=== PATIENT | male | born 1960 | race Caucasian/White ===

== ENCOUNTER 2020-11-06 16:16 | Inpatient (IN) | payer BC, OTHER ==
[2020-11-06] MEDS ORDERED: SODIUM CHLORIDE 0.9% 500 ML 500 ML IV STA (16:47)
[2020-11-06 17:24] LABS: Basophils % (A) 1 %; Eosinophils % (A) 0 %; HCT 43.5 % (39.0-53.0); Lymphocytes # (A) 0.3 k/uL (1.0-4.8); Lymphocytes % (A) 8 %; MCH 28.3 pg (25.0-35.0); MCHC 34.6 g/dL (31.0-37.0); Mean Platelet Volume 8.3; Monocytes # (A) 0.3 k/uL (0-1.0); Monocytes % (A) 6 %; Neutrophils # (A) 3.7 k/uL (1.3-7.7); Neutrophils % (A) 84 %; Platelet Count 155 k/uL (150-450); RDW 14.8 % (11.5-15.5); WBC 4.4 k/uL (3.8-10.6)
[2020-11-06 17:33] LABS: ALT 55 U/L (4-49); AST 69 U/L (17-59); African American GFR (CKD) >90 (>60 ml/min/1.73 sqM); Albumin 3.5 g/dL (3.5-5.0); Alkaline Phosphatase 66 U/L (38-126); Anion Gap 9 mmol/L; Blood Urea Nitrogen 15 mg/dL (9-20); Calcium 8.2 mg/dL (8.4-10.2); Carbon Dioxide 23 mmol/L (22-30); Chloride 101 mmol/L (98-107); Glucose 140 mg/dL (74-99); Non-African American GFR(CKD) >90 (>60 ml/min/1.73 sqM); Potassium 4.5 mmol/L (3.5-5.1); Sodium 133 mmol/L (137-145); Total Bilirubin 0.5 mg/dL (0.2-1.3); Total Protein 6.4 g/dL (6.3-8.2)
--- NOTE | 2020-11-06 17:58 | XR ---
EXAMINATION TYPE: XR chest 1V portable DATE OF EXAM: 11/06/2020 COMPARISON: NONE HISTORY: Vertebra. Cough TECHNIQUE: Single view FINDINGS: Heart is normal. There is some coarsening of interstitial markings in the lower lung holt . There are chest leads. IMPRESSION: There are some fibrotic changes and subsegmental atelectasis at the lung bases. No heart failure seen. Normal heart.
[2020-11-06] MEDS ORDERED: NALOXONE 0.4 MG/ML 1 ML VIAL IV PRN (17:59)
[2020-11-06] MEDS ORDERED: ONDANSETRON 4 MG/2 ML VIAL IVP PRN (17:59)
[2020-11-06] MEDS ORDERED: IBUPROFEN 400 MG TAB PO PRN (17:59)
[2020-11-06] MEDS ORDERED: ACETAMINOPHEN TAB 325 MG TAB PO PRN (17:59)
[2020-11-06 18:33] LABS: C Reactive Protein 6.8 mg/dL (<1.0)
[2020-11-06 18:34] LABS: Prothrombin Time 10.4 sec (9.0-12.0)
[2020-11-06] MEDS: DEXAMETHASONE SOD PHOSPHATE 10 MG/ML 1 ML VIAL IV SCH (20:04)
[2020-11-06] MEDS: PANTOPRAZOLE 40 MG/10 ML VIAL IVP SCH (20:05)
[2020-11-06] MEDS: ZINC SULFATE 220 MG CAP PO SCH (20:06)
[2020-11-06] MEDS: ENOXAPARIN 40 MG/0.4 ML SYRINGE SQ SCH (20:06)
--- NOTE | 2020-11-06 20:09 | CT ---
EXAMINATION TYPE: CT chest angio for PE DATE OF EXAM: 11/06/2020 COMPARISON: None HISTORY: +covid, cough, SOB CT DLP: 485.5 mGycm Automated exposure control for dose reduction was used. CONTRAST: Performed with IV Contrast, patient injected with 100 mL of Isovue 370. Images obtained from the thoracic inlet to the diaphragm with IV contrast. There are 3-D post process ed images. There is no mediastinal adenopathy. Heart size is normal. There is no pericardial effusion. There are no hilar masses. Thoracic aorta is intact. There is no sign of aneurysm or dissection. There is normal contrast opacification of the pulmonary arteries. There are no filling defects. There are patchy bilateral peripheral pulmonary interstitial and airspace infiltrates. Bony thorax is intact. There is minor spurring in the thoracic spine. IMPRESSION: No evidence of pulmonary embolism. Extensive bilateral pulmonary infiltrates consistent with pneumoni a or RDS.
--- NOTE | 2020-11-06 20:13 | HP ---
HISTORY AND PHYSICAL CHIEF COMPLAINT: Shortness of breath, cough and fever. HISTORY OF PRESENT ILLNESS: This 60-year-old gentleman with a past medical history of DVT, history of pulmonary embolism, history of back surgery being followed by Dr. Moreno in the outpatient setting is complaining of fever, cough and some sputum and shortness of breath for the last 10 days which was progressively getting worse. Patient went to urgent care center. Patient referred to [facility] for further evaluation and treatment. Patient was apparently found to be hypoxic at the urgent care center. Currently the patient is saturating 95% on 4 L. Chest x-ray showed bilateral interstitial shadows suggestive of COVID-19. COVID-19 test was also positive. The patient admitted for further evaluation and treatment. Other labs are being processed at this time. Of note, the patient's family from [place] visited, the brother and his about a couple weeks ago and 4 or 5 days prior to the symptoms onset the patient apparently visited them and those family members went back to [place] and were tested positive, admitted in the hospital. Another brother who visited them also is admitted in [facility] according to him. Apparently, patient already had a very brief contact, only about one hour visiting them, who was living with some other family members. There is no history any headache, loss of consciousness or seizures at this time. PAST MEDICAL HISTORY: History of DVT, history of pulmonary embolism, history of kidney stones, history of adenoidectomy, back surgery. The patient also had history of hip surgery and the patient apparently had multiple complications and is trying for disability. 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 MEDICATIONS: Home medications are unknown. ALLERGIES: None. FAMILY HISTORY: No history of heart attacks or strokes. SOCIAL HISTORY: No history of smoking. No history of alcohol intake. REVIEW OF SYSTEMS: ENT No history of diminished hearing or vision. CARDIOVASCULAR No angina or palpitations. RESPIRATORY As mentioned earlier. GI No nausea, vomiting, or diarrhea. No dysuria or hematuria. NERVOUS No numbness or weakness. ALLERGY/IMMUNOLOGY No asthma or hayfever. MUSCULOSKELETAL As mentioned earlier. HEMATOLOGY/ONCOLOGY Negative. ENDOCRINE No history of diabetes or hypothyroidism. CONSTITUTIONAL As mentioned earlier. DERMATOLOGY Negative. RHEUMATOLOGY Negative, PSYCHIATRIC: As mentioned earlier. PHYSICAL EXAMINATION: Alert and oriented x3. Pulse 105, blood pressure 166/87, respiration 20, temperature 99.8, pulse ox 94% on 4 L. HEENT: Conjunctivae normal. Oral mucosa moist. NECK: No jugular venous distention. No lymph node enlargement. CARDIOVASCULAR: S1, S2, muffled. No S3, no S4, RESPIRATORY: Diminished breath sounds at the bases. Diffuse scattered rhonchi. ABDOMEN: Soft, nontender. LEGS: No edema, no swelling. NERVOUS SYSTEM: Higher functions mentioned earlier. Moves all four limbs. No focal motor or sensory deficits. LYMPHATICS: No lymph node in neck or axilla. SKIN: No rash. JOINTS: No active deforming arthropathy. LABS: WBC 4.4, lymphocytes 0.3, sodium 133, glucose 140, calcium 8.2, AST 69 and ALT is 55. ASSESSMENT: 1. Acute COVID-19 bilateral pneumonia with acute hypoxic respiratory failure. 2. Lymphopenia. 3. Hyponatremia. 4. Elevated random glucose. 5. Elevated AST ALT, possibly secondary to COVID-19. 6. History of hip surgery and as well as complications. 7. DVT history. 8. History of pulmonary embolism. 9. History of kidney stones. 10.History of adenoidectomy. 11.History of back surgery. 12.History of DJD. RECOMMENDATIONS AND DISCUSSION: In this 60-year-old gentleman who presented with multiple complex medical issues, we will monitor the patient closely, continue the current management and symptomatic treatment. Otherwise, we will initiate steroids, bronchodilators, zinc, pulmonary consultation, infectious disease evaluation. The patient might be a candidate for Remdesivir at this time. Otherwise, the patient might be out of the window for monoclonal antibodies currently. Prognosis guarded because of multiple complex medical issues. Further recommendations to follow. Please note, the patient the patient has not taken the COVID vaccine yet. MMODL / IJN: [id number] /
[2020-11-06] MEDS: ALBUTEROL HFA INHALER INHALATION SCH ×2 (20:18)
--- NOTE | 2020-11-06 23:01 | ED ---
General Adult HPI - General Chief complaint: Shortness of Breath Stated complaint: Covid+, SOB Time Seen by Provider: 11/06/20 16:34 Source: patient, EMS, RN notes reviewed, old records reviewed Mode of arrival: EMS Limitations: no limitations - History of Present Illness Initial comments: Patient is a 60-year-old male with past medical history that is remarkable for prior DVT and PE. Presents emergency Department complaining of a 10 day history of worsening shortness of breath. Patient has been having upper respiratory symptoms for the last 10 days. He is also been complaining of generalized joint pain. He states that the upper respiratory symptoms including a productive cough of mild mucous, as well as dyspnea has worsened over the last 1-2 days. He presented to urgent care today tomorrow where he was found to be hypoxic. They did not perform a COVID-19 swab, but stated that he likely has COVID based on symptoms. He was transferred here for further care. Patient has no confirmed case of COVID-19. He denies any nausea, vomiting, abdominal pain, lightheadedness, headaches. Denies any lower extremity swelling. He denies any smoking history. Denies any hemoptysis. He states this all started with this current respiratory infection. He does endorse subjective fevers and chills as well. Patient does have recent contact with COVID-19 positive individuals. - Related Data Home Medications Medication Instructions Recorded Confirmed Benzonatate [Tessalon Perles] 100 - 200 mg PO TID PRN 11/06/20 11/06/20 Cetirizine HCl [Zyrtec] 10 mg PO HS 11/06/20 11/06/20 Cyclobenzaprine [Flexeril] 10 mg PO HS PRN 11/06/20 11/06/20 Fluticasone Nasal Easley [Flonase 2 spr EA NOSTRIL DAILY 11/06/20 11/06/20 Nasal Easley] Gabapentin [Neurontin] 100 mg PO BID PRN 11/06/20 11/06/20 Meloxicam [Mobic] 7.5 mg PO DAILY PRN 11/06/20 11/06/20 predniSONE See Taper PO DAILY 11/06/20 11/06/20 Allergies Allergy/AdvReac Type Severity Reaction Status Date / Time No Known Allergies Allergy Verified 11/06/20 18:08 Review of Systems ROS Statement: Those systems with pertinent positive or pertinent negative responses have been documented in the HPI. Review of Systems: CONST: Denies fever EYES: Denies blurry vision ENT: Endorses nasal congestion C/V: Denies Chest pain RESP: Endorses shortness of breath GI: Denies abdominal pain : Denies dysuria SKIN: Denies rash. MSK: Denies joint pain. NEURO: Denies headache ROS Other: All systems not noted in ROS Statement are negative. Past Medical History Past Medical History: Deep Vein Thrombosis (DVT), Pulmonary Embolus (PE) Additional Past Medical History / Comment(s): hx of kidney stones. History of Any Multi-Drug Resistant Organisms: None Reported Past Surgical History: Adenoidectomy, Back Surgery, Joint Replacement Additional Past Surgical History / Comment(s): hip replacement Past Psychological History: No Psychological Hx Reported Smoking Status: Never smoker Past Alcohol Use History: None Reported Past Drug Use History: None Reported General Exam - General Exam Comments Initial Comments: General: The mild respiratory distress currently on 4 L nasal cannula. HEAD: Normal with no signs of head trauma. EYES: PERRLA, EOMI, conjunctiva normal, no discharge. ENT: Hearing grossly intact, normal oropharynx. RESPIRATORY: Clear breath sounds bilaterally. No wheezes, rales, or rhonchi. Patient is hypoxic. He is mildly to. C/V: Is mildly tachycardic with a regular rhythm. S1 and S2 auscultated. No peripheral edema. Peripheral pulses are 2+ and intact throughout. ABD: Abd is soft, nontender, nondistended EXT: Normal range of motion, no obvious deformity SKIN: No rashes or lesions observed on exposed skin. NEURO: Alert and oriented 4. Limitations: no limitations Course Vital Signs 11/06/20 11/06/20 11/06/20 16:18 16:27 16:30 Temperature 99.8 F H Pulse Rate 105 H 105 H Respiratory 20 19 Rate Blood Pressure 166/87 166/87 O2 Sat by Pulse 95 94 L 94 L Oximetry 11/06/20 11/06/20 11/06/20 16:31 17:00 17:30 Temperature Pulse Rate 105 H 98 Respiratory 20 18 21 Rate Blood Pressure 166/87 166/87 O2 Sat by Pulse 93 L 92 L Oximetry 11/06/20 11/06/20 11/06/20 18:00 18:30 19:00 Temperature Pulse Rate 98 102 H 96 Respiratory 18 20 18 Rate Blood Pressure 166/87 166/87 166/87 O2 Sat by Pulse 93 L 96 94 L Oximetry Medical Decision Making - Medical Decision Making Based on the patient's presentation and physical exam, I have a strong suspicion for acute 19 infection the patient. He is on day 10 or 11 at this time. He is hypoxic requiring 4 L supplemental oxygenation at this time. This does appear to improve his symptoms. However we will obtain a cardiac workup in addition to basic laboratory studies and a d-dimer. He'll be given Tylenol and Motrin for control of his fevers. He'll be connected to continuous cardiac monitoring while is here in the department continuous pulse oximetry. Patient was in agreement this plan. COVID-19 swab will be obtained. Patient's trace studies are remarkable for positive COVID-19 swab. Patient is mildly hyponatremic at 133. Patient does have an elevated LDH of 1297. Troponin is negative. CRP is elevated to 6.8. Calcium is decreased to 8.2. D- dimer is mildly elevated 1.05 likely secondary to his acute COVID-19 infection. Remainder of his labs are unremarkable. He does have a lymphopenia. ESR is elevated at 50. EKG revealed no signs of acute ischemia. Patient's chest x-ray revealed fibrotic changes and subsegmental atelectasis at the lung bases. Due to the elevated d-dimer, CT PE was obtained. This was ordered by the admitting physician. It was negative for acute pulmonary embolism. Lovenox was started for the elevated d-dimer and prophylactic anticoagulation. I did expand the patient that I would like to admit him to the hospital for his acute COVID-19 infection. He was in agreement this plan. I spoke extensively with the admitting physician, Dr. Rodriges, we agreed that the patient does not meet criteria for possible antibodies at this time. He will be started on daily Decadron, zinc him as well as an albuterol inhaler. Infectious disease consult was placed to evaluate the patient if he qualifies for remdesivir. Patient was therefore admitted in serious condition to telemetry bed. - Lab Data Result diagrams: 11/06/20 17:17 11/06/20 17:17 Lab Results 11/06/20 11/06/20 11/06/20 Range/Units 17:17 17:17 17:17 WBC 4.4 (3.8-10.6) k/uL RBC 5.30 (4.30-5.90) m/uL Hgb 15.0 (13.0-17.5) gm/dL Hct 43.5 (39.0-53.0) % MCV 82.0 (80.0-100.0) fL MCH 28.3 (25.0-35.0) pg MCHC 34.6 (31.0-37.0) g/dL RDW 14.8 (11.5-15.5) % Plt Count 155 (150-450) k/uL MPV 8.3 Neutrophils % 84 % Lymphocytes % 8 % Monocytes % 6 % Eosinophils % 0 % Basophils % 1 % Neutrophils # 3.7 (1.3-7.7) k/uL Lymphocytes # 0.3 L (1.0-4.8) k/uL Monocytes # 0.3 (0-1.0) k/uL Eosinophils # 0.0 (0-0.7) k/uL Basophils # 0.0 (0-0.2) k/uL ESR (0-15) mm/hr PT (9.0-12.0) sec INR (<1.2) APTT (22.0-30.0) sec D-Dimer (<0.60) mg/L FEU Sodium 133 L (137-145) mmol/L Potassium 4.5 (3.5-5.1) mmol/L Chloride 101 (98-107) mmol/L Carbon Dioxide 23 (22-30) mmol/L Anion Gap 9 mmol/L BUN 15 (9-20) mg/dL Creatinine 0.65 L (0.66-1.25) mg/dL Est GFR (CKD-EPI)AfAm >90 (>60 ml/min/1.73 sqM) Est GFR (CKD-EPI)NonAf >90 (>60 ml/min/1.73 sqM) Glucose 140 H (74-99) mg/dL Calcium 8.2 L (8.4-10.2) mg/dL Total Bilirubin 0.5 (0.2-1.3) mg/dL AST 69 H (17-59) U/L ALT 55 H (4-49) U/L Alkaline Phosphatase 66 (38-126) U/L Lactate Dehydrogenase (313-618) U/L Troponin I <0.012 (0.000-0.034) ng/mL C-Reactive Protein (<1.0) mg/dL Total Protein 6.4 (6.3-8.2) g/dL Albumin 3.5 (3.5-5.0) g/dL Coronavirus (PCR) (Not Detectd) 11/06/20 11/06/20 11/06/20 Range/Units 17:17 17:17 17:17 WBC (3.8-10.6) k/uL RBC (4.30-5.90) m/uL Hgb (13.0-17.5) gm/dL Hct (39.0-53.0) % MCV (80.0-100.0) fL MCH (25.0-35.0) pg MCHC (31.0-37.0) g/dL RDW (11.5-15.5) % Plt Count (150-450) k/uL MPV Neutrophils % % Lymphocytes % % Monocytes % % Eosinophils % % Basophils % % Neutrophils # (1.3-7.7) k/uL Lymphocytes # (1.0-4.8) k/uL Monocytes # (0-1.0) k/uL Eosinophils # (0-0.7) k/uL Basophils # (0-0.2) k/uL ESR 50 H (0-15) mm/hr PT (9.0-12.0) sec INR (<1.2) APTT (22.0-30.0) sec D-Dimer 1.05 H (<0.60) mg/L FEU Sodium (137-145) mmol/L Potassium (3.5-5.1) mmol/L Chloride (98-107) mmol/L Carbon Dioxide (22-30) mmol/L Anion Gap mmol/L BUN (9-20) mg/dL Creatinine (0.66-1.25) mg/dL Est GFR (CKD-EPI)AfAm (>60 ml/min/1.73 sqM) Est GFR (CKD-EPI)NonAf (>60 ml/min/1.73 sqM) Glucose (74-99) mg/dL Calcium (8.4-10.2) mg/dL Total Bilirubin (0.2-1.3) mg/dL AST (17-59) U/L ALT (4-49) U/L Alkaline Phosphatase (38-126) U/L Lactate Dehydrogenase (313-618) U/L Troponin I (0.000-0.034) ng/mL C-Reactive Protein (<1.0) mg/dL Total Protein (6.3-8.2) g/dL Albumin (3.5-5.0) g/dL Coronavirus (PCR) Detected A (Not Detectd) 11/06/20 11/06/20 Range/Units 17:17 17:55 WBC (3.8-10.6) k/uL RBC (4.30-5.90) m/uL Hgb (13.0-17.5) gm/dL Hct (39.0-53.0) % MCV (80.0-100.0) fL MCH (25.0-35.0) pg MCHC (31.0-37.0) g/dL RDW (11.5-15.5) % Plt Count (150-450) k/uL MPV Neutrophils % % Lymphocytes % % Monocytes % % Eosinophils % % Basophils % % Neutrophils # (1.3-7.7) k/uL Lymphocytes # (1.0-4.8) k/uL Monocytes # (0-1.0) k/uL Eosinophils # (0-0.7) k/uL Basophils # (0-0.2) k/uL ESR (0-15) mm/hr PT 10.4 (9.0-12.0) sec INR 1.0 (<1.2) APTT 20.0 L (22.0-30.0) sec D-Dimer (<0.60) mg/L FEU Sodium (137-145) mmol/L Potassium (3.5-5.1) mmol/L Chloride (98-107) mmol/L Carbon Dioxide (22-30) mmol/L Anion Gap mmol/L BUN (9-20) mg/dL Creatinine (0.66-1.25) mg/dL Est GFR (CKD-EPI)AfAm (>60 ml/min/1.73 sqM) Est GFR (CKD-EPI)NonAf (>60 ml/min/1.73 sqM) Glucose (74-99) mg/dL Calcium (8.4-10.2) mg/dL Total Bilirubin (0.2-1.3) mg/dL AST (17-59) U/L ALT (4-49) U/L Alkaline Phosphatase (38-126) U/L Lactate Dehydrogenase 1297 H (313-618) U/L Troponin I (0.000-0.034) ng/mL C-Reactive Protein 6.8 H (<1.0) mg/dL Total Protein (6.3-8.2) g/dL Albumin (3.5-5.0) g/dL Coronavirus (PCR) (Not Detectd) - EKG Data -: EKG Interpreted by Me EKG Comments: 12-lead Electrocardiogram Interpretation Note EKG was reviewed and interpreted by myself. 12-lead ECG performed at 1744 is interpreted by me as revealing normal sinus rhythm at a rate of 100 beats per minute. Gould is normal. NH interval is undetectable a 2 ms, QRS duration is 82 ms, QTc is 417 ms.. There were no ST or T wave abnormalities to suggest myocardial ischemia or injury. R wave progression across the precordium was satisfactory. By my interpretation this EKG is non-diagnostic for acute ischemia. Disposition Clinical Impression: COVID-19, Acute respiratory failure with hypoxia, Elevated d-dimer, Elevated LD H, Febrile Disposition: ADMITTED IP TO THIS HOSP Condition: Serious
[2020-11-07 04:28] LABS: Basophils % (A) 1 %; Eosinophils % (A) 0 %; HCT 44.6 % (39.0-53.0); HGB 15.2 gm/dL (13.0-17.5); Lymphocytes # (A) 0.2 k/uL (1.0-4.8); Lymphocytes % (A) 7 %; MCH 29.1 pg (25.0-35.0); MCHC 34.1 g/dL (31.0-37.0); MCV 85.3 fL (80.0-100.0); Mean Platelet Volume 8.4; Monocytes # (A) 0.2 k/uL (0-1.0); Monocytes % (A) 7 %; Neutrophils # (A) 2.5 k/uL (1.3-7.7); Neutrophils % (A) 83 %; Platelet Count 162 k/uL (150-450); RBC 5.23 m/uL (4.30-5.90); RDW 14.8 % (11.5-15.5)
[2020-11-07 04:38] LABS: ALT 47 U/L (4-49); AST 54 U/L (17-59); African American GFR (CKD) >90 (>60 ml/min/1.73 sqM); Albumin 3.4 g/dL (3.5-5.0); Alkaline Phosphatase 65 U/L (38-126); Anion Gap 9 mmol/L; Blood Urea Nitrogen 16 mg/dL (9-20); Calcium 8.5 mg/dL (8.4-10.2); Carbon Dioxide 24 mmol/L (22-30); Chloride 102 mmol/L (98-107); Glucose 154 mg/dL (74-99); Magnesium 2.4 mg/dL (1.6-2.3); Non-African American GFR(CKD) >90 (>60 ml/min/1.73 sqM); Potassium 4.6 mmol/L (3.5-5.1); Sodium 135 mmol/L (137-145); Total Bilirubin 0.6 mg/dL (0.2-1.3); Total Protein 6.2 g/dL (6.3-8.2)
[2020-11-07] MEDS: ALBUTEROL HFA INHALER INHALATION PRN ×3 (07:16→15:53)
[2020-11-07] MEDS ORDERED: REMDESIVIR 200 MG in SODIUM CHLORIDE 0.9% 250 ML IVPB ONE (08:39)
[2020-11-07] MEDS: ZINC SULFATE 220 MG CAP PO SCH (10:16)
[2020-11-07] MEDS: ENOXAPARIN 40 MG/0.4 ML SYRINGE SQ SCH (10:16)
[2020-11-07] MEDS: DEXAMETHASONE SOD PHOSPHATE 10 MG/ML 1 ML VIAL IV SCH (10:17)
[2020-11-07] MEDS: PANTOPRAZOLE 40 MG/10 ML VIAL IVP SCH (10:18)
[2020-11-07] MEDS ORDERED: MELOXICAM 7.5 MG TAB PO PRN (13:11)
[2020-11-07] MEDS ORDERED: CYCLOBENZAPRINE 10 MG TAB PO PRN (13:11)
[2020-11-07] MEDS ORDERED: GABAPENTIN 100 MG CAP PO PRN (13:11)
[2020-11-07] MEDS: CHOLECALCIFEROL 25 MCG (1000 IU) TABLET PO SCH (14:08)
[2020-11-07 14:09] LABS: Ferritin 1939.5 ng/mL (22.0-322.0)
--- NOTE | 2020-11-07 16:46 | P.CNPUL ---
History of Present Illness Consult date: 11/07/20 Requesting physician: Edwige Rodriges Reason for consult: dyspnea, cough Chief complaint: Shortness of breath, cough, fever History of present illness: This 60-year-old white male patient of Dr. Moreno, with past medical history of DVT and bilateral PEs back in 2009, currently not on any chronic ant icoagulation, hip replacement surgery, history of adenoidectomy and back surgery who presented to the emergency department on 11/06/2020 for evaluation of shortness of breath, fever, cough. Patient symptoms were suspicious for COVID- 19 infection. His symptom onset was 10 days prior to common into the emergency department. His symptoms started with upper respiratory symptoms, productive cough of mild mucus, as well as dyspnea that has worsened over the last 1-2 days. Patient went to the urgent care on 11/06/2020 and was found to be hypoxic, and he was sent in to the emergency department for further treatment and evaluation for suspicion of COVID-19 pneumonia. Patient states his recently had COVID-19 infection, she had symptoms for 15 days. He denied any nausea, no vomiting, no abdominal pain no headaches. No lower extremity swelling, no chest discomfort. He has no chronic lung condition, he denies history of smoking. No hemoptysis. He reports subjective fever and chills at home. He is not vaccinated for COVID-19. At the urgent care clinic he was given a prednisone taper starting at 40 mg. His chest x-ray showed some coarsening of interstitial markings at the lower lung holt. EEG showed normal sinus rhythm, he is COVID-19 PCR was found to be positive, CBC showed white count of 4.4, hemoglobin of 15, lymphocytes, 0.3, his d-dimer was 1.05, sodium was 133, the rest of the electrolytes were unremarkable, BUN is 15 creatinine 0.65, his ferritin level was 1939, AST was 69, ALT was 55, LDH was 1297, CRP was 6.8, troponin was less than 0.012. Pro-calcitonin level was 0.14. Patient was outside the window for Remdesivir. He was also not a candidate for COVID antibiotic infusion. His been started on Decadron 6 mg daily, he was placed on prophylactic dose Lovenox, COVID-19 vitamin C cloudy vitamin C, vitamin D and zinc. He is currently up to 5 L of oxygen, and his pulse ox is 90-91%. CTA chest was completed showing no evidence of PE, and it showed extensive bilateral pulmonary infiltrate is consistent with pneumonia or RDS. Review of Systems All systems: negative Constitutional: Reports fatigue, Reports fever, Reports malaise, Reports weakness, Denies chills Eyes: denies blurred vision, denies pain Ears, nose, mouth and throat: Denies headache, Denies sore throat Cardiovascular: Denies chest pain, Denies shortness of breath Respiratory: Reports cough, Reports dyspnea Gastrointestinal: Denies abdominal pain, Denies diarrhea, Denies nausea, Denies vomiting Musculoskeletal: Reports myalgias Integumentary: Denies pruritus, Denies rash Neurological: Denies numbness, Denies weakness Psychiatric: Denies anxiety, Denies depression Endocrine: Denies fatigue, Denies weight change Past Medical History Past Medical History: Deep Vein Thrombosis (DVT), Pulmonary Embolus (PE) Additional Past Medical History / Comment(s): hx of kidney stones. History of Any Multi-Drug Resistant Organisms: None Reported Past Surgical History: Adenoidectomy, Back Surgery, Joint Replacement Additional Past Surgical History / Comment(s): hip replacement Past Psychological History: No Psychological Hx Reported Smoking Status: Never smoker Past Alcohol Use History: None Reported Past Drug Use History: None Reported Medications and Allergies Home Medications Medication Instructions Recorded Confirmed Type Benzonatate [Tessalon Perles] 100 - 200 mg PO TID PRN 11/06/20 11/06/20 History Cetirizine HCl [Zyrtec] 10 mg PO HS 11/06/20 11/06/20 History Cyclobenzaprine [Flexeril] 10 mg PO HS PRN 11/06/20 11/06/20 History Fluticasone Nasal [place] [Flonase 2 spr EA NOSTRIL DAILY 11/06/20 11/06/20 History Nasal [place]] Gabapentin [Neurontin] 100 mg PO BID PRN 11/06/20 11/06/20 History Meloxicam [Mobic] 7.5 mg PO DAILY PRN 11/06/20 11/06/20 History predniSONE See Taper PO DAILY 11/06/20 11/06/20 History Allergies Allergy/AdvReac Type Severity Reaction Status Date / Time No Known Allergies Allergy Verified 11/06/20 18:08 Physical Exam Vitals: Vital Signs Temp Pulse Pulse Resp BP BP Pulse Ox 11/07/20 12:05 92 24 136/86 91 L 11/07/20 10:10 97.9 F 92 22 136/86 90 L 11/07/20 07:59 97.6 F 80 15 114/74 90 L 11/07/20 07:16 90 L 11/07/20 00:56 89 18 130/82 93 L 11/06/20 19:00 96 18 166/87 94 L 11/06/20 18:30 102 H 20 166/87 96 11/06/20 18:00 98 18 166/87 93 L 11/06/20 17:30 98 21 166/87 92 L 11/06/20 17:00 105 H 18 166/87 93 L GENERAL EXAM: Alert, very pleasant, 60-year-old white male, resting in a gurney in the emergency department on 5 L of oxygen and the pulse ox of 91%, comfortable in no apparent distress. HEAD: Normocephalic/atraumatic. EYES: Normal reaction of pupils, equal size. Conjunctiva pink, sclera white. NOSE: Clear with pink turbinates. THROAT: No erythema or exudates. NECK: No masses, no JVD, no thyroid enlargement, no adenopathy. CHEST: No chest wall deformity. Symmetrical expansion. LUNGS: Equal air entry with bibasilar crackles, but no wheeze, rhonchi or dullness. CVS: Regular rate and rhythm, normal S1 and S2, no gallops, no murmurs, no rubs ABDOMEN: Soft, nontender. No hepatosplenomegaly, normal bowel sounds, no guar ding or rigidity. EXTREMITIES: No clubbing, no edema, no cyanosis, 2+ pulses and upper and lower extremities. MUSCULOSKELETAL: Muscle strength and tone normal. SPINE: No scoliosis or deformity SKIN: No rashes CENTRAL NERVOUS SYSTEM: Alert and oriented -3. No focal deficits, tone is normal in all 4 extremities. PSYCHIATRIC: Alert and oriented -3. Appropriate affect. Intact judgment and insight. Results - Laboratory Findings CBC and BMP: 11/07/20 03:54 11/07/20 03:54 PT/INR, D-dimer PT 10.4 sec (9.0-12.0) 11/06/20 17:55 INR 1.0 (<1.2) 11/06/20 17:55 D-Dimer 1.05 mg/L FEU (<0.60) H 11/06/20 17:17 Abnormal lab findings: Abnormal Labs 11/06/20 11/06/20 11/06/20 17:17 17:17 17:17 WBC Lymphocytes # 0.3 L ESR APTT D-Dimer Sodium 133 L Creatinine 0.65 L Glucose 140 H Calcium 8.2 L Magnesium Ferritin AST 69 H ALT 55 H Lactate Dehydrogenase C-Reactive Protein Total Protein Albumin Procalcitonin Coronavirus (PCR) Detected A 11/06/20 11/06/20 11/06/20 17:17 17:17 17:17 WBC Lymphocytes # ESR 50 H APTT D-Dimer 1.05 H Sodium Creatinine Glucose Calcium Magnesium Ferritin 1939.5 H AST ALT Lactate Dehydrogenase 1297 H C-Reactive Protein 6.8 H Total Protein Albumin Procalcitonin Coronavirus (PCR) 11/06/20 11/06/20 11/07/20 17:17 17:55 03:54 WBC Lymphocytes # ESR APTT 20.0 L D-Dimer Sodium 135 L Creatinine Glucose 154 H Calcium Magnesium 2.4 H Ferritin AST ALT Lactate Dehydrogenase C-Reactive Protein Total Protein 6.2 L Albumin 3.4 L Procalcitonin 0.14 H Coronavirus (PCR) 11/07/20 03:54 WBC 3.0 L Lymphocytes # 0.2 L ESR APTT D-Dimer Sodium Creatinine Glucose Calcium Magnesium Ferritin AST ALT Lactate Dehydrogenase C-Reactive Protein Total Protein Albumin Procalcitonin Coronavirus (PCR) - Diagnostic Findings Chest x-ray: report reviewed, image reviewed CT scan - chest: report reviewed, image reviewed Additional studies: EKG reviewed Assessment and Plan Plan: Assessment: #1. Acute hypoxic respiratory failure related to acute COVID-19 pneumonia, outside the window for Remdesivir. Chronic candidate for COVID-19 antibiotic infusion. Onset of symptoms was greater than 10 days prior to presentation #2. Myalgias, fever, cough, dyspnea related to the above #3. Previous history of DVT and bilateral PEs in 2009, currently not on chronic anticoagulation #4. History of kidney stones #5. Osteoarthritis . History of hip surgery #6. Nonsmoker Plan: Continue Decadron Continue Lovenox Continue COVID-19 vitamins Patient is not a candidate for Remdesivir Continue monitoring his dyspnea and oxygen demand May consider Tocilizumab for worsening hypoxia or dyspnea We'll continue to follow I performed a history & physical examination of the patient and discussed their management with my nurse practitioner, Milka Giordano. I reviewed the nurse practitioner's note and agree with the documented findings and plan of care. Lung sounds are positive for diminished breath sounds throughout the lung field s. The findings and the impression was discussed with the patient. I attest to the documentation by the nurse practitioner. Time with Patient: Greater than 30
[2020-11-07] MEDS: FLUTICASONE 50MCG/SPRAY NASAL 16GM EA NOSTRIL SCH (17:43)
--- NOTE | 2020-11-07 19:23 | PN ---
PROGRESS NOTE DATE OF SERVICE: 11/07/2020 This 60-year-old gentleman who was admitted with acute Covid 19 bilateral pneumonia also had acute hypoxic respiratory failure. We are trying to get Remdesivir ordered in this patient. Apparently patient had symptoms for the last 10 days. D-dimer is 105. CT scan showed extensive bilateral interstitial pneumonia with no evidence of pulmonary embolism. Inflammatory markers also elevated highly suggestive of Covid 19. Procalcitonin is also elevated at 0.14. Sodium is 135. PAST MEDICAL HISTORY: Reviewed. REVIEW OF SYSTEMS: Cardiovascular system: No angina or palpitations. Respirations: As mentioned earlier. GI: As mentioned earlier. : As mentioned earlier. Nervous system: No numbness or weakness. CURRENT MEDICATIONS: Reviewed and include: Tylenol, Ventolin, Tessalon, vitamin D3. Dexamethasone, Lovenox, Neurontin, Mobic, Zofran and Protonix, PHYSICAL EXAMINATION: Patient is alert, oriented times three. Pulse 92, blood pressure 136/86, respiration 22, temperature 97.9, pulse ox 98% on 4 L. HEENT: Conjunctivae normal. Neck: No JVD. Cardiovascular: S1, S2 muffled. Respiratory: Breath sounds diminished in the bases. A few scattered rhonchi and crackles. Abdomen: Soft, nontender. No mass palpable. Legs: No edema. No swelling. Nervous system: Higher functions as mentioned earlier. Moves all four limbs. No focal deficits. Lymphatics: No lymph nodes palpable in the neck, axillae or groin. Skin: No ulcer, no rash and no bleeding. Joints: No active deforming arthropathy. LABS: WBC 3, hemoglobin 15.2, sodium 135, albumin is 3.4. Procalcitonin 0.14. ASSESSMENT: 1. Acute COVID-19 bilateral interstitial pneumonia with acute hypoxic respiratory failure. 2. Lymphopenia. 3. Hyponatremia. 4. Elevated random glucose. 5. Elevated AST/ALT possibly secondary to Covid 19. 6. Elevated inflammatory markers of Covid 19. 7. History of hip surgery and as well as multiple complications. 8. History of deep vein thrombosis. 9. History of pulmonary embolus. 10.History of kidney stones. 11.History of adenoidectomy.. 12.History of back surgery. 13.History of degenerative joint disease. RECOMMENDATIONS AND DISCUSSION: I recommend to continue current medications, management and symptomatic treatment. Repeat labs. Otherwise continue the bronchodilators. Continue with vitamin C. Continue with zinc. Continue the rest of medications. DVT prophylaxis. Lovenox. Guarded prognosis because of multiple complex medical issues. Further recommendations to follow. MMODL / IJN: [id number] / MTDD
[2020-11-07] MEDS ORDERED: ALBUTEROL NEBULIZED 2.5 MG/3 ML INHALATION SCH (20:00)
[2020-11-07] MEDS: FAMOTIDINE 20 MG TAB PO SCH (21:04)
[2020-11-07] MEDS: LORATADINE 10 MG TAB PO SCH (21:04)
[2020-11-07] MEDS: ASCORBIC ACID 500 MG TAB PO SCH (21:04)
--- NOTE | 2020-11-07 23:23 | P.CONS ---
History of Present Illness - Reason for Consult Consult date: 11/07/20 Covid 19 -- remdisivir Requesting physician: Edwige Rodriges - Chief Complaint shortness of breath x few days - History of Present Illness History of present illness : Patient is a 60-year-old male presenting to the ER for evaluation of increasing shortness of breath and cough that been getting worse for about 10 days initially started with URI symptoms started hav ing a cough which has been moderate intensity with occasional clear sputum and started having increasing shortness of breath over the last 1 to 2 days for which the patient did presented to [facility] ER on arrival to the ER patient did have low-grade fever of 99.8 F patient was hypoxic requiring supplemental oxygen currently 90% on 5 L nasal cannula patient did have a normal white count with lymphopenia D-dimer was 1.05 there was labs are elevated juárez PCR came back positive patient did have a chest x-ray some fibrotic changes and subsegmental atelectasis subsequently the patient did have CT angiogram of the chest no evidence of PE extensive bilateral pulmonary infiltrate consistent with pneumonia patient has been admitted to the hospital infectious was consulted for further management and need for remdesivir therapy Review of system: Positive point has been mentioned in HPI rest of the systems are negative Past medical history : Reviewed, documented below Past surgical history : Reviewed, documented below Social history: Reviewed, documented below Medications: Reviewed, as documented below GENERAL DESCRIPTION: Middle-aged male lying in bed, no distress. No tachypnea or accessory muscle of respiration use. HEENT: Shows Pallor , no scleral icterus. Oral mucous membrane is dry. NECK: Trachea central, no thyromegaly. LUNGS: Unlabored breathing. Coarse breath sounds bilaterally. No wheeze or crackle. HEART: S1, S2, regular rate and rhythm. ABDOMEN: Soft, no tenderness , guarding or rigidity EXTREMITIES: No edema of feet. SKIN: No rash, no masses palpable. NEUROLOGICAL: The patient is awake, alert, oriented x3, mood and affect normal. LABS AND RADIOLOGY: Reviewed results see below Assessment : Patient presented to hospital with acute COVID-19 pneumonia in this patient who did have significant hypoxemia with evidence of extensive bilateral infiltrate patient symptom has been going on for about 10 days and the patient will benefit from remdesivir however per [facility] policy patient cannot get remdesivir as he has symptoms going on for more than 7 days did discuss in detail with the pulmonary if they feel the patient will benefit as well we will try to fight for her otherwise the patient will be treated with supportive treatment Plan: 1-patient is currently started on dexamethasone Lovenox and ascorbic acid to continue 2-droplet isolation and respiratory support 3-no need for systemic antibiotic therapy We will follow on clinical condition and cultures to further adjust medication if needed Thank you for this consultation we will follow the patient along with you Past Medical History Past Medical History: Deep Vein Thrombosis (DVT), Pulmonary Embolus (PE) Additional Past Medical History / Comment(s): hx of kidney stones. History of Any Multi-Drug Resistant Organisms: None Reported Past Surgical History: Adenoidectomy, Back Surgery, Joint Replacement Additional Past Surgical History / Comment(s): hip replacement Past Psychological History: No Psychological Hx Reported Smoking Status: Never smoker Past Alcohol Use History: None Reported Past Drug Use History: None Reported Medications and Allergies Home Medications Medication Instructions Recorded Confirmed Type Benzonatate [Tessalon Perles] 100 - 200 mg PO TID PRN 11/06/20 11/06/20 History Cetirizine HCl [Zyrtec] 10 mg PO HS 11/06/20 11/06/20 History Cyclobenzaprine [Flexeril] 10 mg PO HS PRN 11/06/20 11/06/20 History Fluticasone Nasal [place] [Flonase 2 spr EA NOSTRIL DAILY 11/06/20 11/06/20 History Nasal [place]] Gabapentin [Neurontin] 100 mg PO BID PRN 11/06/20 11/06/20 History Meloxicam [Mobic] 7.5 mg PO DAILY PRN 11/06/20 11/06/20 History predniSONE See Taper PO DAILY 11/06/20 11/06/20 History Allergies Allergy/AdvReac Type Severity Reaction Status Date / Time No Known Allergies Allergy Verified 11/06/20 18:08 Physical Exam Vitals: Vital Signs Temp Pulse Resp BP Pulse Ox 11/07/20 07:59 97.6 F 80 15 114/74 90 L 11/07/20 07:16 90 L 11/07/20 00:56 89 18 130/82 93 L 11/06/20 19:00 96 18 166/87 94 L 11/06/20 18:30 102 H 20 166/87 96 11/06/20 18:00 98 18 166/87 93 L 11/06/20 17:30 98 21 166/87 92 L 11/06/20 17:00 105 H 18 166/87 93 L 11/06/20 16:31 20 11/06/20 16:30 105 H 19 166/87 94 L 11/06/20 16:27 94 L 11/06/20 16:18 99.8 F H 105 H 20 166/87 95 Intake and Output 11/06/20 11/07/20 11/07/20 22:59 06:59 14:59 Other: Weight 99.337 kg Results CBC & Chem 7: 11/07/20 03:54 11/07/20 03:54 Labs: Abnormal Lab Results - Last 24 Hours (Table) 11/06/20 11/06/20 11/06/20 Range/Units 17:17 17:17 17:17 WBC (3.8-10.6) k/uL Lymphocytes # 0.3 L (1.0-4.8) k/uL ESR (0-15) mm/hr APTT (22.0-30.0) sec D-Dimer (<0.60) mg/L FEU Sodium 133 L (137-145) mmol/L Creatinine 0.65 L (0.66-1.25) mg/dL Glucose 140 H (74-99) mg/dL Calcium 8.2 L (8.4-10.2) mg/dL Magnesium (1.6-2.3) mg/dL AST 69 H (17-59) U/L ALT 55 H (4-49) U/L Lactate Dehydrogenase (313-618) U/L C-Reactive Protein (<1.0) mg/dL Total Protein (6.3-8.2) g/dL Albumin (3.5-5.0) g/dL Procalcitonin (0.02-0.09) ng/mL Coronavirus (PCR) Detected A (Not Detectd) 11/06/20 11/06/20 11/06/20 Range/Units 17:17 17:17 17:17 WBC (3.8-10.6) k/uL Lymphocytes # (1.0-4.8) k/uL ESR 50 H (0-15) mm/hr APTT (22.0-30.0) sec D-Dimer 1.05 H (<0.60) mg/L FEU Sodium (137-145) mmol/L Creatinine (0.66-1.25) mg/dL Glucose (74-99) mg/dL Calcium (8.4-10.2) mg/dL Magnesium (1.6-2.3) mg/dL AST (17-59) U/L ALT (4-49) U/L Lactate Dehydrogenase 1297 H (313-618) U/L C-Reactive Protein 6.8 H (<1.0) mg/dL Total Protein (6.3-8.2) g/dL Albumin (3.5-5.0) g/dL Procalcitonin (0.02-0.09) ng/mL Coronavirus (PCR) (Not Detectd) 11/06/20 11/06/20 11/07/20 Range/Units 17:17 17:55 03:54 WBC (3.8-10.6) k/uL Lymphocytes # (1.0-4.8) k/uL ESR (0-15) mm/hr APTT 20.0 L (22.0-30.0) sec D-Dimer (<0.60) mg/L FEU Sodium 135 L (137-145) mmol/L Creatinine (0.66-1.25) mg/dL Glucose 154 H (74-99) mg/dL Calcium (8.4-10.2) mg/dL Magnesium 2.4 H (1.6-2.3) mg/dL AST (17-59) U/L ALT (4-49) U/L Lactate Dehydrogenase (313-618) U/L C-Reactive Protein (<1.0) mg/dL Total Protein 6.2 L (6.3-8.2) g/dL Albumin 3.4 L (3.5-5.0) g/dL Procalcitonin 0.14 H (0.02-0.09) ng/mL Coronavirus (PCR) (Not Detectd) 11/07/20 Range/Units 03:54 WBC 3.0 L (3.8-10.6) k/uL Lymphocytes # 0.2 L (1.0-4.8) k/uL ESR (0-15) mm/hr APTT (22.0-30.0) sec D-Dimer (<0.60) mg/L FEU Sodium (137-145) mmol/L Creatinine (0.66-1.25) mg/dL Glucose (74-99) mg/dL Calcium (8.4-10.2) mg/dL Magnesium (1.6-2.3) mg/dL AST (17-59) U/L ALT (4-49) U/L Lactate Dehydrogenase (313-618) U/L C-Reactive Protein (<1.0) mg/dL Total Protein (6.3-8.2) g/dL Albumin (3.5-5.0) g/dL Procalcitonin (0.02-0.09) ng/mL Coronavirus (PCR) (Not Detectd)
[2020-11-08] MEDS: ALBUTEROL HFA INHALER INHALATION SCH ×7 (00:55→23:18)
[2020-11-08] MEDS: ASCORBIC ACID 500 MG TAB PO SCH ×2 (08:34→20:25)
[2020-11-08] MEDS: ZINC SULFATE 220 MG CAP PO SCH (08:34)
[2020-11-08] MEDS: ENOXAPARIN 40 MG/0.4 ML SYRINGE SQ SCH (08:34)
[2020-11-08] MEDS: MULTIVITAMINS, THERA 1 EACH TAB PO SCH (08:34)
[2020-11-08] MEDS: DEXAMETHASONE SOD PHOSPHATE 10 MG/ML 1 ML VIAL IV SCH (08:34)
[2020-11-08] MEDS: CHOLECALCIFEROL 25 MCG (1000 IU) TABLET PO SCH (08:34)
[2020-11-08] MEDS: PANTOPRAZOLE 40 MG TABLET PO SCH (08:34)
[2020-11-08] MEDS: FAMOTIDINE 20 MG TAB PO SCH ×2 (08:34→20:25)
[2020-11-08] MEDS ORDERED: REMDESIVIR 100 MG in SODIUM CHLORIDE 0.9% 250 ML IVPB SCH (09:00)
[2020-11-08] MEDS ORDERED: TOCILIZUMAB 800 MG in SODIUM CHLORIDE 0.9% 60 ML IV ONE (09:30)
[2020-11-08] MEDS: FLUTICASONE 50MCG/SPRAY NASAL 16GM EA NOSTRIL SCH (11:00)
--- NOTE | 2020-11-08 12:27 | XR ---
EXAMINATION TYPE: XR chest 1V portable DATE OF EXAM: 11/08/2020 COMPARISON: NONE HISTORY: Cough TECHNIQUE: Single frontal view of the chest is obtained. FINDINGS: Patchy bilateral infiltrates. Heart size prominent. No pneumothorax. No overt failure. Hyp ertrophic and degenerative change of the spine. IMPRESSION: Stable patchy bilateral infiltrate.
[2020-11-08 13:06] LABS: Glucose,Whole Blood 140 mg/dL (75-99)
--- NOTE | 2020-11-08 13:54 | P.PN ---
Subjective Progress Note Date: 11/08/20 11/08/2020, patient is being seen in follow-up regarding colon cancer related to pneumonia. The patient's condition has gotten worse since yesterday. The patient has developed worsening shortness of breath and worsening hypoxemia. Overnight, the patient will be placed on high flow oxygen and currently is on high flow oxygen at 60 L an FiO2 of 90% addition to 100% on nonrebreather facemasks. His current pulse ox is around 97%. He is able to speak full sentences. He is quite weak. Appetite remains poor. Mental status is adequate. No altered mentation. LDH level was 1297. CRP level was at 6.8. Progesterone level is at 0.14. Based on the progression in his overall oxygenation and respiratory status, I give the patient does of Actemra 800 mg IV in combination with Decadron 6 mg IV every 24 hours. The patient was also transferred to the intensive care unit. Repeat chest x-ray was also done today and it showed stable patchy bilateral pulmonary infiltrates. D-dimer is a 1.05 and the patient is currently on Lovenox for DVT prophylaxis dose of 40 mg subcu every 24 hours. Objective - Vital Signs Vital signs: Vital Signs Temp 98.2 F 11/08/20 10:00 Pulse 75 11/08/20 13:30 Resp 18 11/08/20 13:30 BP 122/79 11/08/20 13:02 Pulse Ox 97 11/08/20 10:00 Intake & Output 11/07/20 11/08/20 11/08/20 18:59 06:59 18:59 Intake Total 75 Balance 75 Intake: IV 75 NS 75 Other: # Voids 2 - Exam GENERAL EXAM: Alert, very pleasant, 60-year-old white male, mild degree of respiratory distress, currently on high flow oxygen 60 L with an FiO2 of 90% along with 100% nonrebreather facemask. HEAD: Normocephalic/atraumatic. EYES: Normal reaction of pupils, equal size. Conjunctiva pink, sclera white. NOSE: Clear with pink turbinates. THROAT: No erythema or exudates. NECK: No masses, no JVD, no thyroid enlargement, no adenopathy. CHEST: No chest wall deformity. Symmetrical expansion. LUNGS: Equal air entry with bibasilar crackles, but no wheeze, rhonchi or dullness. CVS: Regular rate and rhythm, normal S1 and S2, no gallops, no murmurs, no rubs ABDOMEN: Soft, nontender. No hepatosplenomegaly, normal bowel sounds, no gu arding or rigidity. EXTREMITIES: No clubbing, no edema, no cyanosis, 2+ pulses and upper and lower e xtremities. MUSCULOSKELETAL: Muscle strength and tone normal. SPINE: No scoliosis or deformity SKIN: No rashes CENTRAL NERVOUS SYSTEM: Alert and oriented -3. No focal deficits, tone is normal in all 4 extremities. PSYCHIATRIC: Alert and oriented -3. Appropriate affect. Intact judgment and insight. - Labs CBC & Chem 7: 11/07/20 03:54 11/07/20 03:54 Labs: Abnormal Lab Results - Last 24 Hours (Table) 11/06/20 11/08/20 Range/Units 17:17 13:03 POC Glucose (mg/dL) 140 H (75-99) mg/dL Ferritin 1939.5 H (22.0-322.0) ng/mL Assessment and Plan Plan: #1. Acute hypoxic respiratory failure related to acute COVID-19 pneumonia, outside the window and not a candidate for Remdesivir. Chronic candidate for COVID-19 antibiotic infusion. Onset of symptoms was greater than 10 days prior to presentation. The patient was hospitalized yesterday and his condition has gotten worse since yesterday the patient is currently on high flow oxygen 6 L with an FiO2 of 90% along with 100% nonrebreather facemask. Inflammatory markers are elevated. D-dimer is still low and the patient on Lovenox for DVT prophylaxis. Patient was started on Decadron. The patient will be also given Actemra #2. Myalgias, fever, cough, dyspnea related to the above #3. Previous history of DVT and bilateral PEs in 2009, currently not on chronic anticoagulation #4. History of kidney stones #5. Osteoarthritis . History of hip surgery #6. Nonsmoker Plan: Actemra 800mg IV x1 Continue Decadron Continue Lovenox 40 mg sc daily Continue COVID-19 vitamins Patient is not a candidate for Remdesivir Continue monitoring his dyspnea and oxygen demand is high and a FU CXR in am We'll continue to follow Will transfer the patient to MICU
--- NOTE | 2020-11-08 15:06 | P.PN ---
Subjective Progress Note Date: 11/08/20 This is a 60-year-old male who was recently admitted with acute COVID-19 bilateral pneumonia and also having acute hypoxic respiratory failure and being closely monitored. Pulmonary along with infectious disease following closely. Patient is out of the window for Remdesivir and currently receiving Tocilizumab and is continued on vitamin and zinc supplements along with dexamethasone and Lovenox and will continue. Patient was maintained on 4 L via nasal cannula and continue to develop worsening shortness of breath requiring oxygen via nonrebreather and now placed on Airvo with an O2 of 60 and an FiO2 of 90% and patient still having difficulty in breathing and shortness of breath and is using nonrebreather as well. Pulmonary following and at the bedside and having the patient transferred to the ICU for close monitoring. Patient denies any chest pain or palpitations. Patient denies any nausea or vomiting and having decreased appetite but tolerating diet. Patient is having some generalized weakness as well and extremely dyspneic with minimal exertion. Chest x-ray today shows stable patchy bilateral infiltrates. Review of systems: Constitutional: No reports of fatigue, fever, or chills Cardiovascular: No reports of chest pain or palpitations Respiratory: Reports worsening shortness of breath with minimal exertion GI: No reports of nausea, vomiting, or diarrhea : No reports of dysuria or retention Neurovascular: Reports generalized weakness All medications have been reviewed Active Medications Acetaminophen (Acetaminophen Tab 325 Mg Tab) 650 mg PO Q6HR PRN PRN Reason: Mild Pain or Fever > 100.5 Albuterol Sulfate (Albuterol Hfa Inhaler) 2 puff INHALATION RT-Q4H [facility] Last Admin: 11/08/20 12:13 Dose: 2 puff Documented by: Ascorbic Acid (Ascorbic Acid 500 Mg Tab) 500 mg PO BID [facility] Last Admin: 11/08/20 08:34 Dose: 500 mg Documented by: Benzonatate (Benzonatate 100 Mg Cap) 100 mg PO TID PRN PRN Reason: Cough Cholecalciferol (Cholecalciferol 25 Mcg (1000 Iu) Tablet) 25 mcg PO DAILY [facility] Last Admin: 11/08/20 08:34 Dose: 25 mcg Documented by: Cyclobenzaprine HCl (Cyclobenzaprine 10 Mg Tab) 10 mg PO HS PRN PRN Reason: Muscle Spasm Dexamethasone Sodium Phosphate (Dexamethasone Sod Phosphate 10 Mg/Ml 1 Ml Vial) 6 mg IV DAILY [facility] Last Admin: 11/08/20 08:34 Dose: 6 mg Documented by: Enoxaparin Sodium (Enoxaparin 40 Mg/0.4 Ml Syringe) 40 mg SQ DAILY [facility] Last Admin: 11/08/20 08:34 Dose: 40 mg Documented by: Famotidine (Famotidine 20 Mg Tab) 20 mg PO BID [facility] Last Admin: 11/08/20 08:34 Dose: 20 mg Documented by: Fluticasone Propionate (Fluticasone 50mcg/[place] Nasal 16gm) 2 spray EA NOSTRIL DAILY [facility] Last Admin: 11/08/20 11:00 Dose: Not Given Documented by: Gabapentin (Gabapentin 100 Mg Cap) 100 mg PO BID PRN PRN Reason: Pain Loratadine (Loratadine 10 Mg Tab) 10 mg PO HS [facility] Last Admin: 11/07/20 21:04 Dose: 10 mg Documented by: Meloxicam (Meloxicam 7.5 Mg Tab) 7.5 mg PO DAILY PRN PRN Reason: Pain Multivitamins (Multivitamins, Thera 1 Each Tab) 1 each PO DAILY@1200 [facility] Last Admin: 11/08/20 08:34 Dose: 1 each Documented by: Naloxone HCl (Naloxone 0.4 Mg/Ml 1 Ml Vial) 0.2 mg IV Q2M PRN PRN Reason: Opioid Reversal Ondansetron HCl (Ondansetron 4 Mg/2 Ml Vial) 4 mg IVP Q8HR PRN PRN Reason: Nausea And Vomiting Pantoprazole Sodium (Pantoprazole 40 Mg Tablet) 40 mg PO AC-BRKFST [facility] Last Admin: 11/08/20 08:34 Dose: 40 mg Documented by: Zinc Sulfate (Zinc Sulfate 220 Mg Cap) 220 mg PO DAILY [facility] Last Admin: 11/08/20 08:34 Dose: 220 mg Documented by: Objective - Vital Signs Vital signs: Vital Signs Temp 98.8 F 11/08/20 06:12 Pulse 76 11/08/20 06:12 Resp 20 11/08/20 06:12 BP 125/73 11/08/20 06:12 Pulse Ox 94 L 11/08/20 08:14 Intake & Output 11/07/20 11/08/20 11/08/20 18:59 06:59 18:59 Other: # Voids 2 - Exam Gen: This is a 60-year-old male sitting up in the chair awake, alert and oriented 3, acute respiratory distress noted, well-developed, well-nourished. Temp is 98.2F pulse is 75, respirations are 24, blood pressure is 149/83, oxygen is 97% and currently being placed on high flow Airvo with oxygen delivery rate of 60 and FiO2 of 90% HEENT: Head is atraumatic, normocephalic. Pupils equal, round. Sclerae is ani cteric. NECK: Supple. No JVD. No lymphadenopathy. No thyromegaly. LUNGS: Diminished breath sounds bilaterally with extensive coarse rhonchi noted throughout. No intercostal retractions. HEART: S1, S2 are muffled ABDOMEN: Soft. Obese. Bowel sounds are present. No masses. No tenderness. EXTREMITIES: No pedal edema. No calf tenderness. NEUROLOGICAL: Patient is awake, alert and oriented x3. Cranial nerves 2 through 12 are grossly intact. - Labs CBC & Chem 7: 11/07/20 03:54 11/07/20 03:54 Labs: Abnormal Lab Results - Last 24 Hours (Table) 11/06/20 Range/Units 17:17 Ferritin 1939.5 H (22.0-322.0) ng/mL Assessment and Plan Assessment: Acute COVID-19 bilateral interstitial pneumonia with acute hypoxic respiratory failure Lymphopenia Hyponatremia Elevated random glucose elevated AST, ALT possibly secondary to COVID-19 Elevated inflammatory markers of COVID-19 History of hip surgery with multiple complications History of DVT history of pulmonary embolus history of kidney stones History of adenoidectomy History back surgery history of degenerative joint disease Full code Recommendations and discussion: Recommend continue with current medications and current management. Patient is being transferred to the ICU for close monitoring as respiratory status has worsened and patient now maintained on Airvo high Flow along with nonrebreather and pulmonary following closely along with infectious disease. Patient to continue on Lovenox along with vitamin and zinc supplements and dexamethasone. Patient did receive Tocilizumab today. Multiple complex medical issues prognosis is extremely guarded. was on the phone via face time during the initiation of transfer to the ICU as she is aware of the treatment plan. states she was positive with COVID-19 as well and has recovered with no residual effects thus far. Again prognosis remains guarded. Will repeat labs in continue to monitor closely. Continue with oxygen support. Patient is a full code. Time with Patient: Greater than 30
--- NOTE | 2020-11-08 18:06 | PN ---
PROGRESS NOTE DATE OF SERVICE: 11/08/2020 REASON FOR FOLLOWUP: COVID-19 pneumonia. INTERVAL HISTORY: Patient is afebrile. The patient did have significant worsening of his respiratory status. Patient was on high flow oxygen complaining of shortness of breath. No chest pain. No cough. He continues to have a cough with occasional charles sputum. No hemoptysis. Some nausea, no vomiting. No abdominal pain. No diarrhea. PHYSICAL EXAMINATION: Blood pressure 136/76, pulse of 79, temperature 98.1. He is 96% on high-flow oxygen. General description is a middle-aged male up in the chair in no distress. Respiratory system: Unlabored breathing, decreased breath sounds in the base, with no wheeze. Heart S1, S2. Regular rate and rhythm. Abdomen: Soft, no tenderness. LABS: Hemoglobin is 15.2, white count 3.0, BUN of 16, creatinine 0.68. DIAGNOSTIC IMPRESSION AND PLAN: Patient with acute COVID-19 pneumonia with significant worsening of his respiratory status. The patient received a dose of Actemra per Pulmonary. The patient to continue with dexamethasone, Lovenox, zinc and ascorbic acid and monitor clinical course closely. Prognosis remains to be guarded. MMODL / IJN: [id number] /
[2020-11-08] MEDS: LORATADINE 10 MG TAB PO SCH (20:25)
[2020-11-08] MEDS: SODIUM CHLORIDE 0.9% 1,000 ML IV SCH (21:00)
[2020-11-09] MEDS: ALBUTEROL HFA INHALER INHALATION SCH ×6 (03:11→23:18)
[2020-11-09] MEDS: BENZONATATE 100 MG CAP PO PRN ×2 (03:23→20:08)
[2020-11-09 05:09] LABS: Basophils % (A) 1 %; Eosinophils % (A) 0 %; HCT 43.7 % (39.0-53.0); HGB 14.3 gm/dL (13.0-17.5); Lymphocytes # (A) 0.4 k/uL (1.0-4.8); Lymphocytes % (A) 11 %; MCH 27.8 pg (25.0-35.0); MCHC 32.7 g/dL (31.0-37.0); Mean Platelet Volume 8.2; Monocytes # (A) 0.2 k/uL (0-1.0); Monocytes % (A) 5 %; Neutrophils % (A) 80 %; Platelet Count 197 k/uL (150-450); RBC 5.14 m/uL (4.30-5.90); RDW 14.7 % (11.5-15.5); WBC 3.8 k/uL (3.8-10.6)
[2020-11-09 05:40] LABS: African American GFR (CKD) >90 (>60 ml/min/1.73 sqM); Anion Gap 5 mmol/L; Blood Urea Nitrogen 19 mg/dL (9-20); C Reactive Protein 2.9 mg/dL (<1.0); Calcium 8.1 mg/dL (8.4-10.2); Carbon Dioxide 25 mmol/L (22-30); Chloride 104 mmol/L (98-107); Glucose 106 mg/dL (74-99); LDH 1130 U/L (313-618); Non-African American GFR(CKD) >90 (>60 ml/min/1.73 sqM); Potassium 4.3 mmol/L (3.5-5.1); Sodium 134 mmol/L (137-145)
[2020-11-09] MEDS: PANTOPRAZOLE 40 MG TABLET PO SCH (06:58)
--- NOTE | 2020-11-09 08:49 | XR ---
EXAMINATION TYPE: XR chest 1V portable DATE OF EXAM: 11/09/2020 COMPARISON: 11/08/2020 HISTORY: Cough TECHNIQUE: Single frontal view of the chest is obtained. FINDINGS: Bilateral lower lobe infiltrate. No interstitial edema or pneumothorax. Heart size stable. Hypertrophic and degenerative change of the spine. IMPRESSION: Bilateral lower lobe infiltrate.
[2020-11-09] MEDS: ZINC SULFATE 220 MG CAP PO SCH (08:56)
[2020-11-09] MEDS: DEXAMETHASONE SOD PHOSPHATE 10 MG/ML 1 ML VIAL IV SCH (08:56)
[2020-11-09] MEDS: FAMOTIDINE 20 MG TAB PO SCH ×2 (08:56→20:00)
[2020-11-09] MEDS: ASCORBIC ACID 500 MG TAB PO SCH ×2 (08:56→20:00)
[2020-11-09] MEDS: CHOLECALCIFEROL 25 MCG (1000 IU) TABLET PO SCH (08:56)
[2020-11-09] MEDS: ENOXAPARIN 40 MG/0.4 ML SYRINGE SQ SCH (08:56)
[2020-11-09] MEDS: FLUTICASONE 50MCG/SPRAY NASAL 16GM EA NOSTRIL SCH (08:56)
[2020-11-09] MEDS: SODIUM CHLORIDE 0.9% 1,000 ML IV SCH ×2 (08:57→20:01)
--- NOTE | 2020-11-09 11:50 | P.PN ---
Subjective Progress Note Date: 11/09/20 Principal diagnosis: COVID 19 pneumonia This 60-year-old white male patient of Dr. Moreno, with past medical history of DVT and bilateral PEs back in 2009, currently not on any chronic anticoagulation, hip replacement surgery, history of adenoidectomy and back surgery who presented to the emergency department on 11/06/2020 for evaluation of shortness of breath, fever, cough. Patient symptoms were suspicious for COVID-19 infection. His symptom onset was 10 days prior to common into the emergency department. His symptoms started with upper respiratory symptoms, productive cough of mild mucus, as well as dyspnea that has worsened over the last 1-2 days. Patient went to the urgent care on 11/06/2020 and was found to be hypoxic, and he was sent in to the emergency department for further treatment and evaluation for suspicion of COVID-19 pneumonia. Patient states his recently had COVID-19 infection, she had symptoms for 15 days. He denied any nausea, no vomiting, no abdominal pain no headaches. No lower extremity swelling, no chest discomfort. He has no chronic lung condition, he denies history of smoking. No hemoptysis. He reports subjective fever and chills at home. He is not vaccinated for COVID-19. At the urgent care clinic he was given a prednisone taper starting at 40 mg. His chest x-ray showed some coarsening of interstitial markings at the lower lung holt. EEG showed normal sinus rhythm, he is COVID-19 PCR was found to be positive, CBC showed white count of 4.4, hemoglobin of 15, lymphocytes, 0.3, his d-dimer was 1.05, sodium was 133, the rest of the electrolytes were unremarkable, BUN is 15 creatinine 0.65, his ferritin level was 1939, AST was 69, ALT was 55, LDH was 1297, CRP was 6.8, troponin was less than 0.012. Pro-calcitonin level was 0.14. Patient was outside the window for Remdesivir. He was also not a candidate for COVID antibiotic infusion. His been started on Decadron 6 mg daily, he was placed on prophylactic dose Lovenox, COVID-19 vitamin C cloudy vitamin C, vitamin D and zinc. He is currently up to 5 L of oxygen, and his pulse ox is 90-91%. CTA chest was completed showing no evidence of PE, and it showed extensive bilateral pulmonary infiltrate is consistent with pneumonia or RDS. His evaluation on 11/09/2020 patient is seen in the intensive care unit, he is awake and alert, oriented 3, still requiring high flow oxygen for Airvo, at 60 L and FiO2 of 90%, and his pulse ox was around 93-96%, he seems to be breathing comfortably, he states he feels better today, he did have an episode of shor tness of breath last night. Today's follow-up chest x-ray has been reviewed showing bilateral lower lobe infiltrates, not significantly changed. He received a dose of Actos of his imatinib yesterday 800 mg 1, he remains on IV Decadron 6 mg daily, she is on prophylactic anticoagulation with Lovenox 40 mg daily and COVID-19 vitamins, including vitamin C, D, and zinc vitamins. No crackles at bilateral bases, no wheezing. Occasional cough, nonproductive, no complaints of chest discomfort. He states he slightly nauseous today, but he hasn't had anything to eat, he is requesting some dry saltine crackers. No emesis, no diarrhea, no abdominal discomfort. Today's labs have been reviewed. White blood cell count is 3.8, hemoglobin is 14.3, d-dimer is 0.84, sodium is 134, Celexa lites and renal profile were unremarkable, LDH is 1130, and CRP is 2.9, pro calcitonin level was low at 0.14. He is on 0.9 normal saline 75 ML per hour. In sinus mechanism, blood pressure is stable, currently 130/83. Objective - Vital Signs Vital signs: Vital Signs Temp 97.4 F L 11/09/20 08:00 Pulse 66 11/09/20 08:00 Resp 16 11/09/20 08:00 BP 130/83 11/09/20 08:00 Pulse Ox 99 11/09/20 08:00 Intake & Output 11/08/20 11/09/20 11/09/20 18:59 06:59 18:59 Intake Total 615 1100 150 Output Total 450 850 250 Balance 165 250 -100 Weight 99.2 kg Intake: IV 375 900 150 NS 375 900 150 Oral 240 200 Output: Urine 450 850 250 Other: # Voids 0 0 - Exam GENERAL EXAM: Alert, very pleasant, 60-year-old white male, resting in a gurney in the emergency department on 60 liters and FiO2 of 90% with a pulse ox of 93% comfortable in no apparent distress. HEAD: Normocephalic/atraumatic. EYES: Normal reaction of pupils, equal size. Conjunctiva pink, sclera white. NOSE: Clear with pink turbinates. THROAT: No erythema or exudates. NECK: No masses, no JVD, no thyroid enlargement, no adenopathy. CHEST: No chest wall deformity. Symmetrical expansion. LUNGS: Equal air entry with bibasilar crackles, but no wheeze, rhonchi or dullness. CVS: Regular rate and rhythm, normal S1 and S2, no gallops, no murmurs, no rubs ABDOMEN: Soft, nontender. No hepatosplenomegaly, normal bowel sounds, no guarding or rigidity. EXTREMITIES: No clubbing, no edema, no cyanosis, 2+ pulses and upper and lower extremities. MUSCULOSKELETAL: Muscle strength and tone normal. SPINE: No scoliosis or deformity SKIN: No rashes CENTRAL NERVOUS SYSTEM: Alert and oriented -3. No focal deficits, tone is normal in all 4 extremities. PSYCHIATRIC: Alert and oriented -3. Appropriate affect. Intact judgment and insight. - Labs CBC & Chem 7: 11/09/20 04:52 11/09/20 04:52 Labs: Abnormal Lab Results - Last 24 Hours (Table) 11/08/20 11/09/20 11/09/20 Range/Units 13:03 04:52 04:52 Lymphocytes # (1.0-4.8) k/uL D-Dimer 0.84 H (<0.60) mg/L FEU Sodium 134 L (137-145) mmol/L Creatinine 0.64 L (0.66-1.25) mg/dL Glucose 106 H (74-99) mg/dL POC Glucose (mg/dL) 140 H (75-99) mg/dL Calcium 8.1 L (8.4-10.2) mg/dL Lactate Dehydrogenase 1130 H (313-618) U/L C-Reactive Protein 2.9 H (<1.0) mg/dL 11/09/20 Range/Units 04:52 Lymphocytes # 0.4 L (1.0-4.8) k/uL D-Dimer (<0.60) mg/L FEU Sodium (137-145) mmol/L Creatinine (0.66-1.25) mg/dL Glucose (74-99) mg/dL POC Glucose (mg/dL) (75-99) mg/dL Calcium (8.4-10.2) mg/dL Lactate Dehydrogenase (313-618) U/L C-Reactive Protein (<1.0) mg/dL Assessment and Plan Plan: Assessment: #1. Acute hypoxic respiratory failure related to acute COVID-19 pneumonia, outside the window for Remdesivir. Chronic candidate for COVID-19 antibiotic infusion. Onset of symptoms was greater than 10 days prior to presentation. Patient had worsening of his dyspnea and hypoxia, he is status post post-of tocilizumab infusion on 11/08/2020 #2. Myalgias, fever, cough, dyspnea related to the above #3. Previous history of DVT and bilateral PEs in 2009, currently not on chronic anticoagulation #4. History of kidney stones #5. Osteoarthritis . History of hip surgery #6. Nonsmoker Plan: Continue Decadron continue current dose Lovenox Chest x-ray has been reviewed-relatively stable bibasilar infiltrates Labs have been noted IV fluids Continue vitamins Patient is breathing fairly comfortably on today's exam, vital signs are stable, although still requiring high flow oxygen, Urged the patient to reposition from side to side, prone if able Family was updated Continue close monitoring in the intensive care unit I performed a history & physical examination of the patient and discussed their management with my nurse practitioner, Milka Giordano. I reviewed the nurse practitioner's note and agree with the documented findings and plan of care. Lung sounds are positive for diminished breath sounds throughout the lung holt. The findings and the impression was discussed with the patient. I attest to the documentation by the nurse practitioner.
--- NOTE | 2020-11-09 16:01 | PN ---
PROGRESS NOTE DATE OF SERVICE: 11/09/2020 REASON FOR FOLLOWUP: Covid-19 pneumonia. INTERVAL HISTORY: The patient is afebrile. The patient is breathing slightly comfortably today. The patient is still on AIRVO at 16 L. The patient denies having any chest pain or worsening cough. No vomiting, diarrhea or other changes reported by the nursing staff. PHYSICAL EXAMINATION: Blood pressure 146/79 with a pulse of 84, temperature 98.6. He is 98% on 50% FiO2. GENERAL DESCRIPTION: General description is a middle-aged male up in the bed in no distress. RESPIRATORY SYSTEM: Unlabored breathing with diminished breath sounds. HEART: S1, S2. Regular rate and rhythm. ABDOMEN: Soft. No tenderness. LABS: Hemoglobin is 14, white count 3.8. D-dimer is down to 0.84. CRP is down to 2.9. DIAGNOSTIC IMPRESSION AND PLAN: Patient with acute Covid-19 pneumonia with acute respiratory failure. The patient has shown minimal clinical improvement compared to yesterday after changing to Actemra; to continue with dexamethasone, Lovenox, zinc, ascorbic acid, and monitor his clinical course closely. MMODL / IJN: [id number] /
[2020-11-09] MEDS: MULTIVITAMINS, THERA 1 EACH TAB PO SCH (16:35)
[2020-11-09] MEDS: LORATADINE 10 MG TAB PO SCH (20:00)
[2020-11-10] MEDS: BENZONATATE 100 MG CAP PO PRN ×3 (00:47→23:51)
--- NOTE | 2020-11-10 01:51 | P.PN ---
Subjective Progress Note Date: 11/09/20 This is a 60-year-old male who was recently admitted with acute COVID-19 bilateral pneumonia and also having acute hypoxic respiratory failure and being closely monitored. Pulmonary along with infectious disease following closely. Patient is out of the window for Remdesivir and currently receiving Tocilizumab and is continued on vitamin and zinc supplements along with dexamethasone and Lovenox and will continue. Patient was maintained on 4 L via nasal cannula and continue to develop worsening shortness of breath requiring oxygen via nonrebreather and now placed on Airvo with an O2 of 60 and an FiO2 of 90% and patient still having difficulty in breathing and shortness of breath and is using nonrebreather as well. Pulmonary following and at the bedside and having the patient transferred to the ICU for close monitoring. Patient denies any chest pain or palpitations. Patient denies any nausea or vomiting and having decreased appetite but tolerating diet. Patient is having some generalized weakness as well and extremely dyspneic with minimal exertion. Chest x-ray today shows stable patchy bilateral infiltrates. 11/09/2020 Patient is seen in follow up this morning and continues to be closely monitored in the ICU remaining on airvo with a O2 flow rate of 60 and FI 02 of 90%. Patient states that he had a rough night and experienced extreme dyspnea and inability to catch his breath. Patient continues with course rhonchi noted and diminished breath sounds and will add incentive spirometry and have also encouraged the patient to continue with frequent position changes. Patient has chronic pain on the left side status post hip surgery making it difficult to lay on his left side. Patient continues on Lovenox along with dexamethasone and vitamin and zinc supplements. Chest X ray shows bilateral lower lobe infiltrate. Will repeat labs and continue to monitor closely. Inflammatory markers trending down along with D dimer. Review of systems: Constitutional: reports of fatigue, no reports of fever, or chills Cardiovascular: No reports of chest pain or palpitations Respiratory: Reports shortness of breath with minimal exertion and cough that is dry with no phlegm production GI: No reports of nausea, vomiting, or diarrhea, reports decreased appetite : No reports of dysuria or retention Neurovascular: Reports generalized weakness and body aches with left side hip pain All medications have been reviewed Active Medications Acetaminophen (Acetaminophen Tab 325 Mg Tab) 650 mg PO Q6HR PRN PRN Reason: Mild Pain or Fever > 100.5 Albuterol Sulfate (Albuterol Hfa Inhaler) 2 puff INHALATION RT-Q4H [facility] Last Admin: 11/09/20 14:30 Dose: 2 puff Documented by: Ascorbic Acid (Ascorbic Acid 500 Mg Tab) 500 mg PO BID [facility] Last Admin: 11/09/20 08:56 Dose: 500 mg Documented by: Benzonatate (Benzonatate 100 Mg Cap) 100 mg PO TID PRN PRN Reason: Cough Last Admin: 11/09/20 03:23 Dose: 100 mg Documented by: Cholecalciferol (Cholecalciferol 25 Mcg (1000 Iu) Tablet) 25 mcg PO DAILY [facility] Last Admin: 11/09/20 08:56 Dose: 25 mcg Documented by: Cyclobenzaprine HCl (Cyclobenzaprine 10 Mg Tab) 10 mg PO HS PRN PRN Reason: Muscle Spasm Dexamethasone Sodium Phosphate (Dexamethasone Sod Phosphate 10 Mg/Ml 1 Ml Vial) 6 mg IV DAILY [facility] Last Admin: 11/09/20 08:56 Dose: 6 mg Documented by: Enoxaparin Sodium (Enoxaparin 40 Mg/0.4 Ml Syringe) 40 mg SQ DAILY [facility] Last Admin: 11/09/20 08:56 Dose: 40 mg Documented by: Famotidine (Famotidine 20 Mg Tab) 20 mg PO BID [facility] Last Admin: 11/09/20 08:56 Dose: 20 mg Documented by: Fluticasone Propionate (Fluticasone 50mcg/[place] Nasal 16gm) 2 spray EA NOSTRIL DAILY [facility] Last Admin: 11/09/20 08:56 Dose: Not Given Documented by: Gabapentin (Gabapentin 100 Mg Cap) 100 mg PO BID PRN PRN Reason: Pain Sodium Chloride (Saline 0.9%) 1,000 mls @ 75 mls/hr IV .[id number] [facility] Last Admin: 11/09/20 08:57 Dose: Not Given Documented by: Loratadine (Loratadine 10 Mg Tab) 10 mg PO HS [facility] Last Admin: 11/08/20 20:25 Dose: 10 mg Documented by: Meloxicam (Meloxicam 7.5 Mg Tab) 7.5 mg PO DAILY PRN PRN Reason: Pain Multivitamins (Multivitamins, Thera 1 Each Tab) 1 each PO DAILY@1200 [facility] Last Admin: 11/08/20 08:34 Dose: 1 each Documented by: Naloxone HCl (Naloxone 0.4 Mg/Ml 1 Ml Vial) 0.2 mg IV Q2M PRN PRN Reason: Opioid Reversal Ondansetron HCl (Ondansetron 4 Mg/2 Ml Vial) 4 mg IVP Q8HR PRN PRN Reason: Nausea And Vomiting Pantoprazole Sodium (Pantoprazole 40 Mg Tablet) 40 mg PO AC-BRKFST [facility] Last Admin: 11/09/20 06:58 Dose: 40 mg Documented by: Zinc Sulfate (Zinc Sulfate 220 Mg Cap) 220 mg PO DAILY [facility] Last Admin: 11/09/20 08:56 Dose: 220 mg Documented by: Objective - Vital Signs Vital signs: Vital Signs Temp 97.4 F L 11/09/20 08:00 Pulse 66 11/09/20 08:00 Resp 16 11/09/20 08:00 BP 130/83 11/09/20 08:00 Pulse Ox 99 11/09/20 08:00 Intake & Output 11/08/20 11/09/20 11/09/20 18:59 06:59 18:59 Intake Total 615 1100 150 Output Total 450 850 250 Balance 165 250 -100 Weight 99.2 kg Intake: IV 375 900 150 NS 375 900 150 Oral 240 200 Output: Urine 450 850 250 Other: # Voids 0 0 - Exam Gen: This is a 60-year-old male sitting up in the chair awake, alert and oriented 3, well-developed, well-nourished. Temp is 97.4F pulse is 75, respirations are 16, blood pressure is 130/83, oxygen is 99% and currently continued on high flow Airvo with oxygen delivery rate of 60 and FiO2 of 90% HEENT: Head is atraumatic, normocephalic. Pupils equal, round. Sclerae is anicteric. NECK: Supple. No JVD. No lymphadenopathy. No thyromegaly. LUNGS: Diminished breath sounds bilaterally with coarse rhonchi noted throughout. No intercostal retractions. HEART: S1, S2 are muffled ABDOMEN: Soft. Obese. Bowel sounds are present. No masses. No tenderness. EXTREMITIES: No pedal edema. No calf tenderness. NEUROLOGICAL: Patient is awake, alert and oriented x3. Cranial nerves 2 through 12 are grossly intact. diffusely weak - Labs CBC & Chem 7: 11/09/20 04:52 11/09/20 04:52 Labs: Abnormal Lab Results - Last 24 Hours (Table) 11/08/20 11/09/20 11/09/20 Range/Units 13:03 04:52 04:52 Lymphocytes # (1.0-4.8) k/uL D-Dimer 0.84 H (<0.60) mg/L FEU Sodium 134 L (137-145) mmol/L Creatinine 0.64 L (0.66-1.25) mg/dL Glucose 106 H (74-99) mg/dL POC Glucose (mg/dL) 140 H (75-99) mg/dL Calcium 8.1 L (8.4-10.2) mg/dL Lactate Dehydrogenase 1130 H (313-618) U/L C-Reactive Protein 2.9 H (<1.0) mg/dL 11/09/20 Range/Units 04:52 Lymphocytes # 0.4 L (1.0-4.8) k/uL D-Dimer (<0.60) mg/L FEU Sodium (137-145) mmol/L Creatinine (0.66-1.25) mg/dL Glucose (74-99) mg/dL POC Glucose (mg/dL) (75-99) mg/dL Calcium (8.4-10.2) mg/dL Lactate Dehydrogenase (313-618) U/L C-Reactive Protein (<1.0) mg/dL Assessment and Plan Assessment: Acute COVID-19 bilateral interstitial pneumonia with acute hypoxic respiratory failure Lymphopenia Hyponatremia Elevated random glucose elevated AST, ALT possibly secondary to COVID-19 Elevated inflammatory markers of COVID-19 History of left hip surgery with multiple complications History of DVT history of pulmonary embolus history of kidney stones History of adenoidectomy History back surgery history of degenerative joint disease Full code Recommendations and discussion: Recommend continue with current medications and current management. Patient has been transferred to the ICU for close monitoring as respiratory status has worsened and patient continues on Airvo high Flow, pulmonary following closely along with infectious disease. Patient to continue on Lovenox along with vitamin and zinc supplements and dexamethasone. Patient did receiveis status post Tocilizumab yesterday. Due to Multiple complex medical issues prognosis is extremely guarded. Will repeat labs in continue to monitor closely. Continue with oxygen support and wean as tolerated. Patient is a full code.
[2020-11-10] MEDS: ALBUTEROL HFA INHALER INHALATION SCH ×5 (03:17→20:48)
[2020-11-10 05:22] LABS: Basophils % (A) 0 %; Eosinophils % (A) 0 %; HCT 45.1 % (39.0-53.0); HGB 15.1 gm/dL (13.0-17.5); Lymphocytes # (A) 0.5 k/uL (1.0-4.8); Lymphocytes % (A) 11 %; MCH 28.1 pg (25.0-35.0); MCHC 33.4 g/dL (31.0-37.0); Mean Platelet Volume 8.3; Monocytes # (A) 0.2 k/uL (0-1.0); Monocytes % (A) 4 %; Neutrophils # (A) 3.9 k/uL (1.3-7.7); Neutrophils % (A) 83 %; Platelet Count 203 k/uL (150-450); RBC 5.37 m/uL (4.30-5.90); RDW 14.6 % (11.5-15.5); WBC 4.7 k/uL (3.8-10.6)
[2020-11-10 06:06] LABS: African American GFR (CKD) >90 (>60 ml/min/1.73 sqM); Anion Gap 6 mmol/L; Blood Urea Nitrogen 25 mg/dL (9-20); Calcium 8.5 mg/dL (8.4-10.2); Carbon Dioxide 24 mmol/L (22-30); Chloride 103 mmol/L (98-107); Glucose 101 mg/dL (74-99); Non-African American GFR(CKD) >90 (>60 ml/min/1.73 sqM); Potassium 4.5 mmol/L (3.5-5.1); Sodium 133 mmol/L (137-145)
[2020-11-10] MEDS: PANTOPRAZOLE 40 MG TABLET PO SCH (06:43)
--- NOTE | 2020-11-10 08:24 | P.PN ---
Subjective Progress Note Date: 11/10/20 This 60-year-old white male patient of Dr. Moreno, with past medical history of DVT and bilateral PEs back in 2009, currently not on any chronic anticoagulation, hip replacement surgery, history of adenoidectomy and back surgery who presented to the emergency department on 11/06/2020 for evaluation of shortness of breath, fever, cough. Patient symptoms were suspicious for COVID-19 infection. His symptom onset was 10 days prior to common into the emergency department. His symptoms started with upper respiratory symptoms, productive cough of mild mucus, as well as dyspnea that has worsened over the last 1-2 days. Patient went to the urgent care on 11/06/2020 and was found to be hypoxic, and he was sent in to the emergency department for further treatment and evaluation for suspicion of COVID-19 pneumonia. Patient states his recently had COVID-19 infection, she had symptoms for 15 days. He denied any nausea, no vomiting, no abdominal pain no headaches. No lower extremity swelling, no chest discomfort. He has no chronic lung condition, he denies history of smoking. No hemoptysis. He reports subjective fever and chills at home. He is not vaccinated for COVID-19. At the urgent care clinic he was given a prednisone taper starting at 40 mg. His chest x-ray showed some coarsen ing of interstitial markings at the lower lung holt. EEG showed normal sinus rhythm, he is COVID-19 PCR was found to be positive, CBC showed white count of 4.4, hemoglobin of 15, lymphocytes, 0.3, his d-dimer was 1.05, sodium was 133, the rest of the electrolytes were unremarkable, BUN is 15 creatinine 0.65, his ferritin level was 1939, AST was 69, ALT was 55, LDH was 1297, CRP was 6.8, troponin was less than 0.012. Pro-calcitonin level was 0.14. Patient was outside the window for Remdesivir. He was also not a candidate for COVID antibiotic infusion. His been started on Decadron 6 mg daily, he was placed on prophylactic dose Lovenox, COVID-19 vitamin C cloudy vitamin C, vitamin D and zinc. He is currently up to 5 L of oxygen, and his pulse ox is 90-91%. CTA chest was completed showing no evidence of PE, and it showed extensive bilateral pulmonary infiltrate is consistent with pneumonia or RDS. His evaluation on 11/09/2020 patient is seen in the intensive care unit, he is awake and alert, oriented 3, still requiring high flow oxygen for Airvo, at 60 L and FiO2 of 90%, and his pulse ox was around 93-96%, he seems to be breathing comfortably, he states he feels better today, he did have an episode of shortness of breath last night. Today's follow-up chest x-ray has been reviewed showing bilateral lower lobe infiltrates, not significantly changed. He received a dose of Actos of his imatinib yesterday 800 mg 1, he remains on IV Decadron 6 mg daily, she is on prophylactic anticoagulation with Lovenox 40 mg daily and COVID-19 vitamins, including vitamin C, D, and zinc vitamins. No crackles at bilateral bases, no wheezing. Occasional cough, nonproductive, no complaints of chest discomfort. He states he slightly nauseous today, but he hasn't had anything to eat, he is requesting some dry saltine crackers. No emesis, no diarrhea, no abdominal discomfort. Today's labs have been reviewed. White blood cell count is 3.8, hemoglobin is 14.3, d-dimer is 0.84, sodium is 134, Celexa lites and renal profile were unremarkable, LDH is 1130, and CRP is 2.9, pro calcitonin level was low at 0.14. He is on 0.9 normal saline 75 ML per hour. In sinus mechanism, blood pressure is stable, currently 130/83. 1 2020, the patient is being seen in follow-up in the intensive care unit. The patient is essentially the same compared to yesterday. No worsening his chest x-ray findings. He remains on high flow oxygen at 60 L with an FiO2 of 90%. Pulse ox is ranging as low as 88% up to 94%. He gets short of breath with limited amount of activity. He had a bowel movement yesterday and took a lot of energy and he became quite short of breath while having a bowel movement. He also is having some dry cough. No significant sputum production. White cell count is at 4.7 with a hemoglobin of 15.1. He is currently wearing 100% nonrebreather facemask and combination to his high flow oxygen. His LDH level from yesterday was down to 1130 and a CRP isn't 2.9 with a d-dimer of 0.8. Chest x-ray shows no significant interval change in the patient has infiltrates in the lung bases bilaterally. No nausea. No vomiting. No diarrhea. IV fluids are running in the form of normal saline at the rate of 75 mL an hour. The patient is also on Lovenox 40 mg subcu daily. He is on vitamins including vitamin C and E and zinc. His chest x-ray is unchanged. On examination she is to have some coarse crackles in lung bases bilaterally. No altered mentation. Appetite is low. Objective - Vital Signs Vital signs: Vital Signs Temp 98 F 11/10/20 04:00 Pulse 62 11/10/20 07:00 Resp 20 11/10/20 07:00 BP 115/75 11/10/20 07:00 Pulse Ox 97 11/10/20 07:00 Intake & Output 11/09/20 11/10/20 11/10/20 18:59 06:59 18:59 Intake Total 900 900 75 Output Total 1720 1551 Balance -820 -651 75 Weight 99 kg Intake: IV 900 900 75 NS 900 900 75 Output: Urine 1720 1550 Stool 1 Other: # Voids 0 0 0 - Exam GENERAL EXAM: Alert, very pleasant, 60-year-old white male, mild degree of respiratory distress, currently on high flow oxygen 60 L with an FiO2 of 90% along with 100% nonrebreather facemask. HEAD: Normocephalic/atraumatic. EYES: Normal reaction of pupils, equal size. Conjunctiva pink, sclera white. NOSE: Clear with pink turbinates. THROAT: No erythema or exudates. NECK: No masses, no JVD, no thyroid enlargement, no adenopathy. CHEST: No chest wall deformity. Symmetrical expansion. LUNGS: Equal air entry with bibasilar crackles, but no wheeze, rhonchi or dullness. CVS: Regular rate and rhythm, normal S1 and S2, no gallops, no murmurs, no rubs ABDOMEN: Soft, nontender. No hepatosplenomegaly, normal bowel sounds, no guarding or rigidity. EXTREMITIES: No clubbing, no edema, no cyanosis, 2+ pulses and upper and lower extremities. MUSCULOSKELETAL: Muscle strength and tone normal. SPINE: No scoliosis or deformity SKIN: No rashes CENTRAL NERVOUS SYSTEM: Alert and oriented -3. No focal deficits, tone is normal in all 4 extremities. PSYCHIATRIC: Alert and oriented -3. Appropriate affect. Intact judgment and insight. - Labs CBC & Chem 7: 11/10/20 04:15 11/10/20 04:15 Labs: Abnormal Lab Results - Last 24 Hours (Table) 11/10/20 11/10/20 Range/Units 04:15 04:15 Lymphocytes # 0.5 L (1.0-4.8) k/uL Sodium 133 L (137-145) mmol/L BUN 25 H (9-20) mg/dL Creatinine 0.65 L (0.66-1.25) mg/dL Glucose 101 H (74-99) mg/dL Assessment and Plan Plan: #1. Acute hypoxic respiratory failure related to acute COVID-19 pneumonia, outside the window for Remdesivir. Chronic candidate for COVID-19 antibiotic infusion. Onset of symptoms was greater than 10 days prior to presentation. Patient had worsening of his dyspnea and hypoxia, he is status post post-of tocilizumab infusion on 11/08/2020 clinically, the patient is unchanged over the past 48 hours. He remains on high flow oxygen at 60 L and the patient is also on FiO2 of 90% and on and off he is using 100% nonrebreather facemask to maintain a saturation above 90%. He is having a dry cough. Chest x-ray showin lower lobe pulmonary infiltrates worse on the left. Inflammatory markers from yesterday . No interval worsening in his overall respiratory status. #2. Myalgias, fever, cough, dyspnea related to the above #3. Previous history of DVT and bilateral PEs in 2009, currently not on chronic anticoagulation #4. History of kidney stones #5. Osteoarthritis . History of hip surgery #6. Nonsmoker Plan: Continue Decadron 6 mg IV every 24 hours continue current dose Lovenox at a dose of 40 mg subcu daily Chest x-ray has been reviewed-relatively stable bibasilar infiltrates, stable from today Labs have been noted We'll try to prone this patient today with the help of the nursing staff IV fluids Continue vitamins Patient is breathing fairly comfortably on today's exam, vital signs are stable, although still requiring high flow oxygen, Urged the patient to reposition from side to side, prone if able Family was updated Continue close monitoring in the intensive care unit
[2020-11-10] MEDS: CHOLECALCIFEROL 25 MCG (1000 IU) TABLET PO SCH (08:49)
[2020-11-10] MEDS: ASCORBIC ACID 500 MG TAB PO SCH ×2 (08:49→20:03)
[2020-11-10] MEDS: FAMOTIDINE 20 MG TAB PO SCH ×2 (08:49→20:04)
[2020-11-10] MEDS: DEXAMETHASONE SOD PHOSPHATE 10 MG/ML 1 ML VIAL IV SCH (08:49)
[2020-11-10] MEDS: ZINC SULFATE 220 MG CAP PO SCH (08:49)
[2020-11-10] MEDS: ENOXAPARIN 40 MG/0.4 ML SYRINGE SQ SCH (08:49)
--- NOTE | 2020-11-10 09:20 | XR ---
EXAMINATION TYPE: XR chest 1V portable DATE OF EXAM: 11/10/2020 COMPARISON: Chest radiograph November 09, 2020 HISTORY: Congestion TECHNIQUE: Single frontal view of the chest is obtained. FINDINGS: Mildly improved aeration bilaterally with residual left greater than right basilar infiltr ate. The cardiac silhouette size is within normal limits. The osseous structures are intact. IMPRESSION: Mildly improved aeration bilaterally with residual left greater than right basilar infil trate.
[2020-11-10] MEDS: SODIUM CHLORIDE 0.9% 1,000 ML IV SCH (11:48)
[2020-11-10] MEDS: MULTIVITAMINS, THERA 1 EACH TAB PO SCH (11:48)
[2020-11-10] MEDS: FLUTICASONE 50MCG/SPRAY NASAL 16GM EA NOSTRIL SCH (11:49)
--- NOTE | 2020-11-10 14:50 | PN ---
PROGRESS NOTE DATE OF SERVICE: 11/10/2020 REASON FOR FOLLOWUP: COVID-19 pneumonia. INTERVAL HISTORY: The patient is afebrile. The patient is breathing more comfortably. The patient denies having any chest pain. Did have a cough but no worsening. No abdominal pain or diarrhea. PHYSICAL EXAMINATION: Blood pressure 137/86, pulse of 99, temperature of 98. He is 93% on 90% FiO2. GENERAL DESCRIPTION: General description is a middle-aged male up in the bed in no distress. RESPIRATORY SYSTEM: Unlabored breathing with bibasilar crackles. No wheeze. HEART: S1, S2. Regular rate and rhythm. ABDOMEN: Soft. No tenderness. EXTREMITIES: No edema of the feet. LABS: Hemoglobin is 15.1, white count 4.7, BUN of 25, creatinine 0.65. DIAGNOSTIC IMPRESSION AND PLAN: Patient with acute COVID-19 infection in this patient who has received a dose of Actemra. He has shown overall clinical improvement. He is currently covered with dexamethasone, Lovenox, zinc and ascorbic acid; to continue while monitoring his clinical course closely. Continue supportive care. MMODL / IJN: [id number] /
[2020-11-10] MEDS: LORATADINE 10 MG TAB PO SCH (20:04)
[2020-11-11] MEDS: ALBUTEROL HFA INHALER INHALATION SCH ×6 (00:14→21:01)
[2020-11-11] MEDS: SODIUM CHLORIDE 0.9% 1,000 ML IV SCH ×2 (02:22→16:56)
[2020-11-11 04:36] LABS: Basophils % (A) 0 %; Eosinophils % (A) 1 %; HCT 45.2 % (39.0-53.0); HGB 15.4 gm/dL (13.0-17.5); Lymphocytes # (A) 0.6 k/uL (1.0-4.8); Lymphocytes % (A) 11 %; MCH 28.4 pg (25.0-35.0); MCHC 34.1 g/dL (31.0-37.0); MCV 83.3 fL (80.0-100.0); Mean Platelet Volume 7.7; Monocytes # (A) 0.2 k/uL (0-1.0); Monocytes % (A) 4 %; Neutrophils # (A) 4.6 k/uL (1.3-7.7); Neutrophils % (A) 83 %; Platelet Count 220 k/uL (150-450); RBC 5.42 m/uL (4.30-5.90); RDW 14.4 % (11.5-15.5); WBC 5.5 k/uL (3.8-10.6)
[2020-11-11 04:51] LABS: ALT 74 U/L (4-49); AST 45 U/L (17-59); African American GFR (CKD) >90 (>60 ml/min/1.73 sqM); Albumin 3.1 g/dL (3.5-5.0); Alkaline Phosphatase 56 U/L (38-126); Anion Gap 6 mmol/L; Blood Urea Nitrogen 23 mg/dL (9-20); Calcium 8.5 mg/dL (8.4-10.2); Carbon Dioxide 28 mmol/L (22-30); Chloride 100 mmol/L (98-107); Glucose 108 mg/dL (74-99); Non-African American GFR(CKD) >90 (>60 ml/min/1.73 sqM); Potassium 4.3 mmol/L (3.5-5.1); Sodium 134 mmol/L (137-145); Total Bilirubin 0.5 mg/dL (0.2-1.3); Total Protein 5.8 g/dL (6.3-8.2)
--- NOTE | 2020-11-11 05:24 | P.EN ---
Code Blue Note please refer to paper charting for exact sequence of events and meds pushed during the code. patient went into cardiopulmonary arrest and was coded for about 20 minutes. monitor showing PEA arrest, patient was given multiple rounds of epi, bicarb. with no improvement defib shock was delivered twice toward the end for fine Vfib. amiodarone 300 mg ordered but not given as he again had PEA. CPR effort was stopped at that point, as this is patient second cardiopulmonary arrest, along with having severe COVID infection requiring mechanical ventilation with multiorgan failure. outcomes would be very poor due to prolonged anoxic brain injury (patient was severely hypoxic during a prolonged ride by EMS to the hospital). patient was pronounced. family updated by myself RN to update primary team and ICU attending
--- NOTE | 2020-11-11 06:34 | XR ---
EXAMINATION TYPE: XR chest 1V portable DATE OF EXAM: 11/11/2020 COMPARISON: 11/10/2020 HISTORY: Shortness of breath TECHNIQUE: Single frontal view of the chest is obtained. FINDINGS: Mild partial consolidative opacity in the left retrocardiac region indicating either atele ctasis, pneumonia or focal pulmonary edema. There is been no change since the prior study. The remain asnia the lungs are clear. There is no pulmonary vascular congestion and heart size is not enlarged. There is no pneumothorax. The osseous structures are intact. IMPRESSION: No change in the left lower lobe partial consolidative opacity.
[2020-11-11] MEDS: PANTOPRAZOLE 40 MG TABLET PO SCH (06:56)
--- NOTE | 2020-11-11 08:47 | P.PN ---
Subjective Progress Note Date: 11/11/20 This 60-year-old white male patient of Dr. Moreno, with past medical history of DVT and bilateral PEs back in 2009, currently not on any chronic anticoagulation, hip replacement surgery, history of adenoidectomy and back surgery who presented to the emergency department on 11/06/2020 for evaluation of shortness of breath, fever, cough. Patient symptoms were suspicious for COVID-19 infection. His symptom onset was 10 days prior to common into the emergency department. His symptoms started with upper respiratory symptoms, productive cough of mild mucus, as well as dyspnea that has worsened over the last 1-2 days. Patient went to the urgent care on 11/06/2020 and was found to be hypoxic, and he was sent in to the emergency department for further treatment and evaluation for suspicion of COVID-19 pneumonia. Patient states his recently had COVID-19 infection, she had symptoms for 15 days. He denied any nausea, no vomiting, no abdominal pain no headaches. No lower extremity swelling, no chest discomfort. He has no chronic lung condition, he denies history of smoking. No hemoptysis. He reports subjective fever and chills at home. He is not vaccinated for COVID-19. At the urgent care clinic he was given a prednisone taper starting at 40 mg. His chest x-ray showed some coarsen ing of interstitial markings at the lower lung holt. EEG showed normal sinus rhythm, he is COVID-19 PCR was found to be positive, CBC showed white count of 4.4, hemoglobin of 15, lymphocytes, 0.3, his d-dimer was 1.05, sodium was 133, the rest of the electrolytes were unremarkable, BUN is 15 creatinine 0.65, his ferritin level was 1939, AST was 69, ALT was 55, LDH was 1297, CRP was 6.8, troponin was less than 0.012. Pro-calcitonin level was 0.14. Patient was outside the window for Remdesivir. He was also not a candidate for COVID antibiotic infusion. His been started on Decadron 6 mg daily, he was placed on prophylactic dose Lovenox, COVID-19 vitamin C cloudy vitamin C, vitamin D and zinc. He is currently up to 5 L of oxygen, and his pulse ox is 90-91%. CTA chest was completed showing no evidence of PE, and it showed extensive bilateral pulmonary infiltrate is consistent with pneumonia or RDS. His evaluation on 11/09/2020 patient is seen in the intensive care unit, he is awake and alert, oriented 3, still requiring high flow oxygen for Airvo, at 60 L and FiO2 of 90%, and his pulse ox was around 93-96%, he seems to be breathing comfortably, he states he feels better today, he did have an episode of shortness of breath last night. Today's follow-up chest x-ray has been reviewed showing bilateral lower lobe infiltrates, not significantly changed. He received a dose of Actos of his imatinib yesterday 800 mg 1, he remains on IV Decadron 6 mg daily, she is on prophylactic anticoagulation with Lovenox 40 mg daily and COVID-19 vitamins, including vitamin C, D, and zinc vitamins. No crackles at bilateral bases, no wheezing. Occasional cough, nonproductive, no complaints of chest discomfort. He states he slightly nauseous today, but he hasn't had anything to eat, he is requesting some dry saltine crackers. No emesis, no diarrhea, no abdominal discomfort. Today's labs have been reviewed. White blood cell count is 3.8, hemoglobin is 14.3, d-dimer is 0.84, sodium is 134, Celexa lites and renal profile were unremarkable, LDH is 1130, and CRP is 2.9, pro calcitonin level was low at 0.14. He is on 0.9 normal saline 75 ML per hour. In sinus mechanism, blood pressure is stable, currently 130/83. 8/2020, the patient is being seen in follow-up in the intensive care unit. The patient is essentially the same compared to yesterday. No worsening his ch est x-ray findings. He remains on high flow oxygen at 60 L with an FiO2 of 90%. Pulse ox is ranging as low as 88% up to 94%. He gets short of breath with limited amount of activity. He had a bowel movement yesterday and took a lot of energy and he became quite short of breath while having a bowel movement. He also is having some dry cough. No significant sputum production. White cell count is at 4.7 with a hemoglobin of 15.1. He is currently wearing 100% nonrebreather facemask and combination to his high flow oxygen. His LDH level from yesterday was down to 1130 and a CRP isn't 2.9 with a d-dimer of 0.8. Chest x-ray shows no significant interval change in the patient has infiltrates in the lung bases bilaterally. No nausea. No vomiting. No diarrhea. IV fluids are running in the form of normal saline at the rate of 75 mL an hour. The patient is also on Lovenox 40 mg subcu daily. He is on vitamins including vitamin C and E and zinc. His chest x-ray is unchanged. On examination she is to have some coarse crackles in lung bases bilaterally. No altered mentation. Appetite is low. 11/11/2020, I'm seeing the patient for a follow-up. He is feeling better today and he is breathing is more comfortable. He remains on high flow oxygen at 6 L with an FiO2 of 90%. On today's evaluation, he is talking comfortably. He has not used the 100% nonrebreather facemask. His pulse ox is around 92%. Chest x- ray shows a stable left lower lobe consolidation and some limited infiltration bilaterally. D-dimer from yesterday was at 0.8. Rest of the labs are all stable with a white cell count of 5.5 and hemoglobin of 15.4. CRP from yesterday was at 2.9 with a LDH level of 1130. He remains on Decadron 6 mg IV every 24 hours. He remains on anticoagulation with Lovenox 40 mg subcu every 24 hours. Eating well. No altered mentation. Objective - Vital Signs Vital signs: Vital Signs Temp 98.5 F 11/11/20 04:00 Pulse 77 11/11/20 07:00 Resp 21 11/11/20 07:00 BP 137/84 11/11/20 07:00 Pulse Ox 92 L 11/11/20 07:00 Intake & Output 11/10/20 11/11/20 11/11/20 18:59 06:59 18:59 Intake Total 900 1000 75 Output Total 1725 750 250 Balance -825 250 -175 Weight 100.5 kg Intake: IV 900 900 75 NS 75 Sodium Chloride 0.9% 1, 825 900 75 000 ml @ 75 mls/hr IV . [id number] ROBERTA Rx#:[id number] Oral 100 Output: Urine 1725 750 250 Other: # Voids 0 0 - Exam GENERAL EXAM: Alert, very pleasant, 60-year-old white male, mild degree of respiratory distress, currently on high flow oxygen 60 L with an FiO2 of 90% along with 100% nonrebreather facemask. HEAD: Normocephalic/atraumatic. EYES: Normal reaction of pupils, equal size. Conjunctiva pink, sclera white. NOSE: Clear with pink turbinates. THROAT: No erythema or exudates. NECK: No masses, no JVD, no thyroid enlargement, no adenopathy. CHEST: No chest wall deformity. Symmetrical expansion. LUNGS: Equal air entry with bibasilar crackles, but no wheeze, rhonchi or dullness. CVS: Regular rate and rhythm, normal S1 and S2, no gallops, no murmurs, no rubs ABDOMEN: Soft, nontender. No hepatosplenomegaly, normal bowel sounds, no guarding or rigidity. EXTREMITIES: No clubbing, no edema, no cyanosis, 2+ pulses and upper and lower extremities. MUSCULOSKELETAL: Muscle strength and tone normal. SPINE: No scoliosis or deformity SKIN: No rashes CENTRAL NERVOUS SYSTEM: Alert and oriented -3. No focal deficits, tone is normal in all 4 extremities. PSYCHIATRIC: Alert and oriented -3. Appropriate affect. Intact judgment and i nsight. - Labs CBC & Chem 7: 11/11/20 04:09 11/11/20 04:09 Labs: Abnormal Lab Results - Last 24 Hours (Table) 11/11/20 11/11/20 Range/Units 04:09 04:09 Lymphocytes # 0.6 L (1.0-4.8) k/uL Sodium 134 L (137-145) mmol/L BUN 23 H (9-20) mg/dL Glucose 108 H (74-99) mg/dL ALT 74 H (4-49) U/L Total Protein 5.8 L (6.3-8.2) g/dL Albumin 3.1 L (3.5-5.0) g/dL Assessment and Plan Plan: #1. Acute hypoxic respiratory failure related to acute COVID-19 pneumonia, outside the window for Remdesivir. Chronic candidate for COVID-19 antibiotic i nfusion. Onset of symptoms was greater than 10 days prior to presentation. Patient had worsening of his dyspnea and hypoxia, he is status post post-of tocilizumab infusion on 11/08/2020 clinically, the patient is unchanged over the past 48 hours. He remains on high flow oxygen at 60 L and the patient is also on FiO2 of 90% , clinically fee ling well. Chest x-ray findings are stable. Oxygenation is stable. No interval worsening in his overall respiratory status. He is doing the lateral positioning. No prone positioning for now. The patient is doing well, slightly improved compared to yesterday, we'll attempt to wean down his FiO2 slightly to maintain a saturation above 88%. #2. Myalgias, fever, cough, dyspnea related to the above #3. Previous history of DVT and bilateral PEs in 2009, currently not on chronic anticoagulation #4. History of kidney stones #5. Osteoarthritis . History of hip surgery #6. Nonsmoker Plan: Continue Decadron 6 mg IV every 24 hours continue current dose Lovenox at a dose of 40 mg subcu daily Chest x-ray has been reviewed-relatively stable bibasilar infiltrates, and a stable left lower lobe consolidation Labs have been noted We'll try to prone this patient today with the help of the nursing staff IV fluids at 75 mL an hour Continue vitamins Patient is breathing fairly comfortably on today's exam, vital signs are stable, although still requiring high flow oxygen, Urged the patient to reposition from side to side, prone if able Family was updated Continue close monitoring in the intensive care unit
[2020-11-11] MEDS: ASCORBIC ACID 500 MG TAB PO SCH ×2 (09:26→20:53)
[2020-11-11] MEDS: ZINC SULFATE 220 MG CAP PO SCH (09:26)
[2020-11-11] MEDS: CHOLECALCIFEROL 25 MCG (1000 IU) TABLET PO SCH (09:26)
[2020-11-11] MEDS: ENOXAPARIN 40 MG/0.4 ML SYRINGE SQ SCH (09:26)
[2020-11-11] MEDS: FAMOTIDINE 20 MG TAB PO SCH ×2 (09:26→20:53)
[2020-11-11] MEDS: DEXAMETHASONE SOD PHOSPHATE 10 MG/ML 1 ML VIAL IV SCH (09:26)
[2020-11-11] MEDS: MULTIVITAMINS, THERA 1 EACH TAB PO SCH (12:53)
[2020-11-11] MEDS: FLUTICASONE 50MCG/SPRAY NASAL 16GM EA NOSTRIL SCH (16:55)
--- NOTE | 2020-11-11 17:00 | PN ---
PROGRESS NOTE DATE OF SERVICE: 11/11/2020 REASON FOR FOLLOWUP: Covid-19 pneumonia. INTERVAL HISTORY: The patient is afebrile. The patient is breathing more comfortably. The patient denies having any chest pain. He did have a cough; not bringing up any sputum. No vomiting or diarrhea. PHYSICAL EXAMINATION: Blood pressure 135/70 with a pulse of 90, temperature 98. He is 92% on 80% FiO2. GENERAL DESCRIPTION: General description is a middle-aged male up in the chair in no distress. RESPIRATORY SYSTEM: Unlabored breathing with a few crackles. No wheeze. HEART: S1, S2. Regular rate and rhythm. ABDOMEN: Soft. No tenderness. LABS: Hemoglobin is 15.4, white count 5.5. BUN of 23, creatinine 0.79. DIAGNOSTIC IMPRESSION AND PLAN: Patient with acute Covid-19 pneumonia in this patient who did not qualify for remdesivir; however, he did receive a dose of Actemra once his respiratory status got worse. The patient seems to have shown overall clinical improvement. X-rays with left lower lobe consolidative capacity. Will recheck his inflammatory markers and procalcitonin tomorrow. Also will obtain a sputum sample. Continue with the decadron, Lovenox, zinc, ascorbic acid. Continue supportive care. MMODL / IJN: [id number] /
[2020-11-11] MEDS: LORATADINE 10 MG TAB PO SCH (20:53)
--- NOTE | 2020-11-11 23:17 | P.PN ---
Subjective Progress Note Date: 11/10/20 Principal diagnosis: Acute Hypoxic Respiratory Failure COVID -19 Pneumonia Mr. Carson is a 60-year-old male with a past medical history of DVT, PE who is being treated for acute hypoxic respiratory failure secondary to acute COVID-19 bilateral interstitial pneumonia. On 11/10/2020 patient was seen and examined in the ICU. Patient remains on able with oxygen flow rate at 60% and FiO2 at 90%. Symptomatically patient states that his difficulty in breathing is getting better. He denies having any chest pain or palpitations. He still is short winded on changing position in his bed. Patient denies having any abdominal pain nausea vomiting or diarrhea. No dysur ia or hematuria. On reviewing the patient's vitals temperature of 98.2, heart rate 82, respiratory 22, blood pressure 135/77. Patient's labs are reviewed white count of 4.7, hemoglobin 15.1, platelets 203. Sodium 133, potassium 4.5, chloride 103, bicarb 24, BUN 25, creatinine 0.65. Patient's medications have been reviewed. Objective - Vital Signs Vital signs: Vital Signs Temp 97.9 F 11/10/20 11:00 Pulse 92 11/10/20 15:00 Resp 27 H 11/10/20 15:00 BP 138/77 11/10/20 15:00 Pulse Ox 93 L 11/10/20 15:00 Intake & Output 11/09/20 11/10/20 11/10/20 18:59 06:59 18:59 Intake Total 900 900 675 Output Total 1720 1551 1350 Balance -820 -651 -675 Weight 99 kg Intake: IV 900 900 675 NS 900 900 75 Sodium Chloride 0.9% 1, 600 000 ml @ 75 mls/hr IV . [id number] ROBERTA Rx#:[id number] Output: Urine 1720 1550 1350 Stool 1 Other: # Voids 0 0 0 - Exam Gen: This is a 60-year-old male sitting up in the chair awake, alert and oriented 3, well-developed, well-nourished. ON high flow Airvo with oxygen delivery rate of 60 and FiO2 of 90% HEENT: Head is atraumatic, normocephalic. Pupils equal, round. Sclerae is anicteric. NECK: Supple. No JVD. No lymphadenopathy. No thyromegaly. LUNGS: Diminished breath sounds bilaterally with coarse rhonchi noted throughout. No intercostal retractions. HEART: S1, S2 are muffled ABDOMEN: Soft. Obese. Bowel sounds are present. No masses. No tenderness. EXTREMITIES: No pedal edema. No calf tenderness. NEUROLOGICAL: Patient is awake, alert and oriented x3. Cranial nerves 2 through 12 are grossly intact. diffusely weak. - Labs CBC & Chem 7: 11/11/20 04:09 11/11/20 04:09 Labs: Abnormal Lab Results - Last 24 Hours (Table) 11/10/20 11/10/20 Range/Units 04:15 04:15 Lymphocytes # 0.5 L (1.0-4.8) k/uL Sodium 133 L (137-145) mmol/L BUN 25 H (9-20) mg/dL Creatinine 0.65 L (0.66-1.25) mg/dL Glucose 101 H (74-99) mg/dL Assessment and Plan Assessment: ASSESSMENT Acute COVID-19 bilateral interstitial pneumonia with acute hypoxic respiratory failure Lymphopenia Hyponatremia Elevated random glucose elevated AST, ALT possibly secondary to COVID-19 Elevated inflammatory markers of COVID-19 History of left hip surgery with multiple complications History of DVT history of pulmonary embolus history of kidney stones History of adenoidectomy History back surgery history of degenerative joint disease Full code PLAN: Recommend continue with current medications and current management. Patient continues to be on on Airvo high Flow, pulmonary following closely along with infectious disease. Patient to continue on Lovenox along with vitamin and zinc supplements and dexamethasone. Patient did receiveis status post Tocilizumab. Due to Multiple complex medical issues prognosis is extremely guarded. Will repeat labs in continue to monitor closely. Continue with oxygen support and wean as tolerated. Patient is a full code.
--- NOTE | 2020-11-11 23:21 | P.PN ---
Subjective Progress Note Date: 11/11/20 Principal diagnosis: Acute Hypoxic Respiratory Failure COVID -19 Pneumonia Mr. Carson is a 60-year-old male with a past medical history of DVT, PE who is being treated for acute hypoxic respiratory failure secondary to acute COVID-19 bilateral interstitial pneumonia. On 11/10/2020 patient was seen and examined in the ICU. Patient remains on able with oxygen flow rate at 60% and FiO2 at 90%. Symptomatically patient states that his difficulty in breathing is getting better. He denies having any chest pain or palpitations. He still is short winded on changing position in his bed. Patient denies having any abdominal pain nausea vomiting or diarrhea. No dysur ia or hematuria. On reviewing the patient's vitals temperature of 98.2, heart rate 82, respiratory 22, blood pressure 135/77. Patient's labs are reviewed white count of 4.7, hemoglobin 15.1, platelets 203. Sodium 133, potassium 4.5, chloride 103, bicarb 24, BUN 25, creatinine 0.65. On 11/11/2020 -patient is seen and examined in the ICU. Patient states that he has difficulty in breathing is improving day by day. He has his family in the parking lot, waving to him and talking to him over the video call. Patient seems to be happy seeing his family. He denies having any chest pain or palpit ations. He still continues to have exertional dyspnea. Patient denies having abdominal pain nausea vomiting or diarrhea. No dysuria or hematuria. Patient continues to be Airo air flow at the rate of at 60, his FiO2 has been decreased from 90% to 80% today. Rest of his vitals remain within normal limits. Patient's labs have been reviewed sodium 134, potassium 4.3, chloride 100, bicarb 28, BUN 23, creatinine 0.79. White count of 5.5, hemoglobin 15.4, platelets 220. Albumin 3.1. Patient's medications have been reviewed. Objective - Vital Signs Vital signs: Vital Signs Temp 97.8 F 11/11/20 20:00 Pulse 91 11/11/20 22:00 Resp 24 11/11/20 22:00 BP 122/74 11/11/20 22:00 Pulse Ox 92 L 11/11/20 22:00 Intake & Output 11/11/20 11/11/20 11/12/20 06:59 18:59 06:59 Intake Total 1000 900 300 Output Total 750 1825 400 Balance 250 -925 -100 Weight 100.5 kg Intake: IV 900 900 300 Sodium Chloride 0.9% 1, 900 900 300 000 ml @ 75 mls/hr IV . [id number] ROBERTA Rx#:[id number] Oral 100 Output: Urine 750 1825 400 Other: # Voids 0 # Bowel Movements 1 - Exam Gen: This is a 60-year-old male sitting up in the chair awake, alert and oriented 3, well-developed, well-nourished. ON high flow Airvo with oxygen delivery rate of 60 and FiO2 of 80% HEENT: Head is atraumatic, normocephalic. Pupils equal, round. Sclerae is anicteric. NECK: Supple. No JVD. No lymphadenopathy. No thyromegaly. LUNGS: Diminished breath sounds bilaterally with coarse rhonchi noted throughout. No intercostal retractions. HEART: S1, S2 are muffled ABDOMEN: Soft. Obese. Bowel sounds are present. No masses. No tenderness. EXTREMITIES: No pedal edema. No calf tenderness. NEUROLOGICAL: Patient is awake, alert and oriented x3. No focal defcits . diffusely weak. - Labs CBC & Chem 7: 11/11/20 04:09 11/11/20 04:09 Labs: Abnormal Lab Results - Last 24 Hours (Table) 11/11/20 11/11/20 Range/Units 04:09 04:09 Lymphocytes # 0.6 L (1.0-4.8) k/uL Sodium 134 L (137-145) mmol/L BUN 23 H (9-20) mg/dL Glucose 108 H (74-99) mg/dL ALT 74 H (4-49) U/L Total Protein 5.8 L (6.3-8.2) g/dL Albumin 3.1 L (3.5-5.0) g/dL Assessment and Plan Assessment: ASSESSMENT Acute COVID-19 bilateral interstitial pneumonia with acute hypoxic respiratory failure Lymphopenia Hyponatremia Elevated random glucose elevated AST, ALT possibly secondary to COVID-19 Elevated inflammatory markers of COVID-19 History of left hip surgery with multiple complications History of DVT history of pulmonary embolus history of kidney stones History of adenoidectomy History back surgery history of degenerative joint disease Full code PLAN: Recommend continue with current medications and current management. Patient continues to be on on Airvo high Flow at 60 and FiO2 of 80 % today. Pulmonary following closely along with infectious disease. Patient to continue on Lovenox along with vitamin and zinc supplements and dexamethasone. Patient d id receiveis status post Tocilizumab. Due to Multiple complex medical issues prognosis is extremely guarded. Will repeat labs in continue to monitor closely. Continue with oxygen support and wean as tolerated. Patient is a full code.
[2020-11-12] MEDS: ALBUTEROL HFA INHALER INHALATION SCH ×7 (01:20→23:18)
[2020-11-12] MEDS: SODIUM CHLORIDE 0.9% 1,000 ML IV SCH ×2 (01:45→13:23)
[2020-11-12 06:25] LABS: African American GFR (CKD) >90 (>60 ml/min/1.73 sqM); Anion Gap 7 mmol/L; Blood Urea Nitrogen 23 mg/dL (9-20); Calcium 8.8 mg/dL (8.4-10.2); Carbon Dioxide 24 mmol/L (22-30); Chloride 103 mmol/L (98-107); Glucose 111 mg/dL (74-99); Non-African American GFR(CKD) >90 (>60 ml/min/1.73 sqM); Potassium 4.5 mmol/L (3.5-5.1); Sodium 134 mmol/L (137-145)
[2020-11-12 06:29] LABS: Basophils % (A) 1 %; Eosinophils % (A) 0 %; HCT 44.2 % (39.0-53.0); HGB 15.5 gm/dL (13.0-17.5); Lymphocytes # (A) 0.6 k/uL (1.0-4.8); Lymphocytes % (A) 8 %; MCH 28.9 pg (25.0-35.0); MCHC 34.9 g/dL (31.0-37.0); MCV 82.8 fL (80.0-100.0); Mean Platelet Volume 8.8; Monocytes # (A) 0.3 k/uL (0-1.0); Monocytes % (A) 4 %; Neutrophils # (A) 6.6 k/uL (1.3-7.7); Neutrophils % (A) 86 %; Platelet Count 246 k/uL (150-450); RBC 5.34 m/uL (4.30-5.90); RDW 14.4 % (11.5-15.5); WBC 7.6 k/uL (3.8-10.6)
[2020-11-12] MEDS: PANTOPRAZOLE 40 MG TABLET PO SCH (07:03)
--- NOTE | 2020-11-12 09:10 | XR ---
EXAMINATION TYPE: XR chest 1V portable DATE OF EXAM: 11/12/2020 COMPARISON: 11/11/2020 HISTORY: Cough TECHNIQUE: Single frontal view of the chest is obtained. FINDINGS: Bilateral patchy infiltrate and small effusion stable. No pneumothorax. Heart size mildly prominent but unchanged. IMPRESSION: Bilateral patchy infiltrate stable.
--- NOTE | 2020-11-12 09:58 | P.PN ---
Subjective Progress Note Date: 11/12/20 Principal diagnosis: COVID 19 pneumonia This 60-year-old white male patient of Dr. Moreno, with past medical history of DVT and bilateral PEs back in 2009, currently not on any chronic anticoagulation, hip replacement surgery, history of adenoidectomy and back surgery who presented to the emergency department on 11/06/2020 for evaluation of shortness of breath, fever, cough. Patient symptoms were suspicious for COVID-19 infection. His symptom onset was 10 days prior to common into the emergency department. His symptoms started with upper respiratory symptoms, productive cough of mild mucus, as well as dyspnea that has worsened over the last 1-2 days. Patient went to the urgent care on 11/06/2020 and was found to be hypoxic, and he was sent in to the emergency department for further treatment and evaluation for suspicion of COVID-19 pneumonia. Patient states his recently had COVID-19 infection, she had symptoms for 15 days. He denied any nausea, no vomiting, no abdominal pain no headaches. No lower extremity swelling, no chest discomfort. He has no chronic lung condition, he denies history of smoking. No hemoptysis. He reports subjective fever and chills at home. He is not vaccinated for COVID-19. At the urgent care clinic he was given a prednisone taper starting at 40 mg. His chest x-ray showed some coarsening of interstitial markings at the lower lung holt. EEG showed normal sinus rhythm, he is COVID-19 PCR was found to be positive, CBC showed white count of 4.4, hemoglobin of 15, lymphocytes, 0.3, his d-dimer was 1.05, sodium was 133, the rest of the electrolytes were unremarkable, BUN is 15 creatinine 0.65, his ferritin level was 1939, AST was 69, ALT was 55, LDH was 1297, CRP was 6.8, troponin was less than 0.012. Pro-calcitonin level was 0.14. Patient was outside the window for Remdesivir. He was also not a candidate for COVID antibiotic infusion. His been started on Decadron 6 mg daily, he was placed on prophylactic dose Lovenox, COVID-19 vitamin C cloudy vitamin C, vitamin D and zinc. He is currently up to 5 L of oxygen, and his pulse ox is 90-91%. CTA chest was completed showing no evidence of PE, and it showed extensive bilateral pulmonary infiltrate is consistent with pneumonia or RDS. His evaluation on 11/09/2020 patient is seen in the intensive care unit, he is awake and alert, oriented 3, still requiring high flow oxygen for Airvo, at 60 L and FiO2 of 90%, and his pulse ox was around 93-96%, he seems to be breathing comfortably, he states he feels better today, he did have an episode of shor tness of breath last night. Today's follow-up chest x-ray has been reviewed showing bilateral lower lobe infiltrates, not significantly changed. He received a dose of Actos of his imatinib yesterday 800 mg 1, he remains on IV Decadron 6 mg daily, she is on prophylactic anticoagulation with Lovenox 40 mg daily and COVID-19 vitamins, including vitamin C, D, and zinc vitamins. No crackles at bilateral bases, no wheezing. Occasional cough, nonproductive, no complaints of chest discomfort. He states he slightly nauseous today, but he hasn't had anything to eat, he is requesting some dry saltine crackers. No emesis, no diarrhea, no abdominal discomfort. Today's labs have been reviewed. White blood cell count is 3.8, hemoglobin is 14.3, d-dimer is 0.84, sodium is 134, Celexa lites and renal profile were unremarkable, LDH is 1130, and CRP is 2.9, pro calcitonin level was low at 0.14. He is on 0.9 normal saline 75 ML per hour. In sinus mechanism, blood pressure is stable, currently 130/83. On today's evaluation 11/12/2020 patient seen in follow-up in intensive care. Morning patient is on irritable at 60 L and FiO2 was dropped down to 70%, his pulse ox is around 91-95%, his breathing is stable, and has been pronating intermittently in bed, tolerating it fairly well, this morning he sitting up in the bed, his any worsening dyspnea, no chest discomfort, he is awake and alert, oriented 3, he is in sinus mechanism with a rate of 92 BPM, he is tolerating oral intake, no nausea or vomiting no diarrhea, he is working on incentive spirometer. Remains on Decadron 6 mg daily, he is on Lovenox at prophylactic dose 40 mg daily, he is on COVID-19 vitamins. Today's chest x-ray has been reviewed showing bilateral patchy infiltrates that are stable in appearance. Today's labs have been reviewed showing white blood cell count of 7.6, hemoglobin is 15.5, lymphocyte count is 0.6, today's d-dimer is 1.43, sodium is 134, potassium is 4.5, B1 is 23, creatinine 0.61. His last LDH from 2 days ago was thousand 130, and his CRP from today is 0.8. Vitals have been stable overnight, he has had no fever or chills Objective - Vital Signs Vital signs: Vital Signs Temp 97.8 F 11/12/20 04:00 Pulse 67 11/12/20 07:00 Resp 17 11/12/20 07:00 BP 118/77 11/12/20 07:00 Pulse Ox 95 11/12/20 07:00 Intake & Output 11/11/20 11/12/20 11/12/20 18:59 06:59 18:59 Intake Total 900 900 75 Output Total 1825 1450 0 Balance -925 -550 75 Weight 99.5 kg Intake: IV 900 900 75 Sodium Chloride 0.9% 1, 900 900 75 000 ml @ 75 mls/hr IV . [id number] [facility] Rx#:[id number] Output: Urine 1825 1450 0 Other: # Bowel Movements 1 - Exam GENERAL EXAM: Alert, very pleasant, 60-year-old white male, resting in a gurney in the emergency department on 60 liters and FiO2 of 70% with a pulse ox of 93% comfortable in no apparent distress. HEAD: Normocephalic/atraumatic. EYES: Normal reaction of pupils, equal size. Conjunctiva pink, sclera white. NOSE: Clear with pink turbinates. THROAT: No erythema or exudates. NECK: No masses, no JVD, no thyroid enlargement, no adenopathy. CHEST: No chest wall deformity. Symmetrical expansion. LUNGS: Equal air entry with bibasilar crackles, but no wheeze, rhonchi or dullness. CVS: Regular rate and rhythm, normal S1 and S2, no gallops, no murmurs, no rubs ABDOMEN: Soft, nontender. No hepatosplenomegaly, normal bowel sounds, no guarding or rigidity. EXTREMITIES: No clubbing, no edema, no cyanosis, 2+ pulses and upper and lower extremities. MUSCULOSKELETAL: Muscle strength and tone normal. SPINE: No scoliosis or deformity SKIN: No rashes CENTRAL NERVOUS SYSTEM: Alert and oriented -3. No focal deficits, tone is normal in all 4 extremities. PSYCHIATRIC: Alert and oriented -3. Appropriate affect. Intact judgment and insight. - Labs CBC & Chem 7: 11/12/20 03:17 11/12/20 03:17 Labs: Abnormal Lab Results - Last 24 Hours (Table) 11/12/20 11/12/20 11/12/20 Range/Units 03:17 03:17 03:17 Lymphocytes # 0.6 L (1.0-4.8) k/uL D-Dimer 1.43 H (<0.60) mg/L FEU Sodium 134 L (137-145) mmol/L BUN 23 H (9-20) mg/dL Creatinine 0.61 L (0.66-1.25) mg/dL Glucose 111 H (74-99) mg/dL Assessment and Plan Plan: Assessment: #1. Acute hypoxic respiratory failure related to acute COVID-19 pneumonia, outside the window for Remdesivir. Chronic candidate for COVID-19 antibiotic infusion. Onset of symptoms was greater than 10 days prior to presentation. Patient had worsening of his dyspnea and hypoxia, he is status post post-of tocilizumab infusion on 11/08/2020 #2. Myalgias, fever, cough, dyspnea related to the above #3. Previous history of DVT and bilateral PEs in 2009, currently not on chronic anticoagulation #4. History of kidney stones #5. Osteoarthritis . History of hip surgery #6. Nonsmoker Plan: Continue Decadron continue current dose Lovenox Chest x-ray has been reviewed-relatively stable bibasilar infiltrates Labs have been noted, inflammatory markers are not significantly increased, d-di amrita has been noted IV fluids to KVO Continue vitamins Patient is breathing fairly comfortably on today's exam, vital signs are stable, and Airvo at 60 L and FiO2 of 70%, FiO2 he can further be decreased down to 60% Has remained stable, without worsening of dyspnea or hypoxia Supportive medical treatment, Urged the patient to reposition from side to side, Continue close monitoring in the intensive care unit I performed a history & physical examination of the patient and discussed their management with my nurse practitioner, Milka Giordano. I reviewed the nurse practitioner's note and agree with the documented findings and plan of care. Lung sounds are positive for diminished breath sounds throughout the lung holt. The findings and the impression was discussed with the patient. I a ttest to the documentation by the nurse practitioner. Time with Patient: Less than 30
[2020-11-12] MEDS: ASCORBIC ACID 500 MG TAB PO SCH ×2 (10:06→20:37)
[2020-11-12] MEDS: MULTIVITAMINS, THERA 1 EACH TAB PO SCH (10:06)
[2020-11-12] MEDS: ZINC SULFATE 220 MG CAP PO SCH (10:06)
[2020-11-12] MEDS: CHOLECALCIFEROL 25 MCG (1000 IU) TABLET PO SCH (10:06)
[2020-11-12] MEDS: FAMOTIDINE 20 MG TAB PO SCH ×2 (10:06→20:37)
[2020-11-12] MEDS: ENOXAPARIN 40 MG/0.4 ML SYRINGE SQ SCH (10:07)
[2020-11-12] MEDS: DEXAMETHASONE SOD PHOSPHATE 10 MG/ML 1 ML VIAL IV SCH (10:08)
[2020-11-12] MEDS: FLUTICASONE 50MCG/SPRAY NASAL 16GM EA NOSTRIL SCH (13:23)
--- NOTE | 2020-11-12 13:51 | PN ---
PROGRESS NOTE DATE OF SERVICE: 11/12/2020 REASON FOR FOLLOWUP: COVID-19 pneumonia. INTERVAL HISTORY: Patient is currently afebrile. The patient is breathing comfortably. FiO2 is currently down to 70%. Hemodynamically stable. Not on pressor support. No worsening cough or sputum production. No abdominal pain or diarrhea. PHYSICAL EXAMINATION: Blood pressure 128/75, pulse 85, temperature 98. He is 90% on 70% FiO2. General description is a middle-aged male up in the bed in no distress. Respiratory system: Unlabored breathing. No wheeze. Heart: S1, S2. Regular rate and rhythm. Abdomen: Soft, no tenderness. Extremities: No edema of the feet. LABS: Hemoglobin is 15.5, white count 7.6. D-dimer is mildly elevated 1.43, BUN of 23, creatinine 0.61. DIAGNOSTIC IMPRESSION AND PLAN: Patient with acute COVID-19 pneumonia in this patient who did not qualify for Remdesivir, however, did receive a dose of Actemra. The patient did have slow clinical improvement. He is currently covered with dexamethasone, Lovenox, zinc and ascorbic acid to continue and monitor clinical course closely. MMODL / IJN: [id number] /
[2020-11-12] MEDS: LORATADINE 10 MG TAB PO SCH (20:37)
--- NOTE | 2020-11-13 02:00 | P.PN ---
Subjective Progress Note Date: 11/12/20 Principal diagnosis: Acute Hypoxic Respiratory Failure COVID -19 Pneumonia Mr. Carson is a 60-year-old male with a past medical history of DVT, PE who is being treated for acute hypoxic respiratory failure secondary to acute COVID-19 bilateral interstitial pneumonia. On 11/10/2020 patient was seen and examined in the ICU. Patient remains on able with oxygen flow rate at 60% and FiO2 at 90%. Symptomatically patient states that his difficulty in breathing is getting better. He denies having any chest pain or palpitations. He still is short winded on changing position in his bed. Patient denies having any abdominal pain nausea vomiting or diarrhea. No dysur ia or hematuria. On reviewing the patient's vitals temperature of 98.2, heart rate 82, respiratory 22, blood pressure 135/77. Patient's labs are reviewed white count of 4.7, hemoglobin 15.1, platelets 203. Sodium 133, potassium 4.5, chloride 103, bicarb 24, BUN 25, creatinine 0.65. On 11/11/2020 -patient is seen and examined in the ICU. Patient states that he has difficulty in breathing is improving day by day. He has his family in the parking lot, waving to him and talking to him over the video call. Patient seems to be happy seeing his family. He denies having any chest pain or palpit ations. He still continues to have exertional dyspnea. Patient denies having abdominal pain nausea vomiting or diarrhea. No dysuria or hematuria. Patient continues to be Airo air flow at the rate of at 60, his FiO2 has been decreased from 90% to 80% today. Rest of his vitals remain within normal limits. Patient's labs have been reviewed sodium 134, potassium 4.3, chloride 100, bicarb 28, BUN 23, creatinine 0.79. White count of 5.5, hemoglobin 15.4, platelets 220. Albumin 3.1. On 11/12/2020 -patient is seen and examined at bedside in the ICU. As per discussion with nursing staff patient's FiO2 has been decreased to 60% since this morning. Patient states that his difficulty in breathing is improving. Patient is in good spirits and positive thoughts. He denies having any chest pain or palpitations. No abdominal pain nausea vomiting or diarrhea. No dysuria or hematuria. On reviewing his vitals temperature 98.1, heart rate 94, respiratory rate 30, saturating around 90% on high flow rate of 60 and FiO2 of 60%. On reviewing his labs white count of 7.6, hemoglobin 15.5 platelets 246. Patient's medications have been Active Medications Acetaminophen (Acetaminophen Tab 325 Mg Tab) 650 mg PO Q6HR PRN PRN Reason: Mild Pain or Fever > 100.5 Albuterol Sulfate (Albuterol Hfa Inhaler) 2 puff INHALATION RT-QID [facility] Ascorbic Acid (Ascorbic Acid 500 Mg Tab) 500 mg PO BID [facility] Last Admin: 11/12/20 20:37 Dose: 500 mg Documented by: Benzonatate (Benzonatate 100 Mg Cap) 100 mg PO TID PRN PRN Reason: Cough Last Admin: 11/10/20 23:51 Dose: 100 mg Documented by: Cholecalciferol (Cholecalciferol 25 Mcg (1000 Iu) Tablet) 25 mcg PO DAILY [facility] Last Admin: 11/12/20 10:06 Dose: 25 mcg Documented by: Cyclobenzaprine HCl (Cyclobenzaprine 10 Mg Tab) 10 mg PO HS PRN PRN Reason: Muscle Spasm Dexamethasone Sodium Phosphate (Dexamethasone Sod Phosphate 10 Mg/Ml 1 Ml Vial) 6 mg IV DAILY [facility] Last Admin: 11/12/20 10:08 Dose: 6 mg Documented by: Enoxaparin Sodium (Enoxaparin 40 Mg/0.4 Ml Syringe) 40 mg SQ DAILY [facility] [place] Last Admin: 11/12/20 10:07 Dose: 40 mg Documented by: Famotidine (Famotidine 20 Mg Tab) 20 mg PO BID [facility] Last Admin: 11/12/20 20:37 Dose: 20 mg Documented by: Fluticasone Propionate (Fluticasone 50mcg/[place] Nasal 16gm) 2 spray EA NOSTRIL DAILY [facility] Last Admin: 11/12/20 13:23 Dose: 2 spray Documented by: Gabapentin (Gabapentin 100 Mg Cap) 100 mg PO BID PRN PRN Reason: Pain Sodium Chloride (Saline 0.9%) 1,000 mls @ 20 mls/hr IV .Q24H [facility] Last Admin: 11/12/20 13:23 Dose: Not Given Documented by: Loratadine (Loratadine 10 Mg Tab) 10 mg PO HS [facility] Last Admin: 11/12/20 20:37 Dose: 10 mg Documented by: Meloxicam (Meloxicam 7.5 Mg Tab) 7.5 mg PO DAILY PRN PRN Reason: Pain Multivitamins (Multivitamins, Thera 1 Each Tab) 1 each PO DAILY@1200 [facility] Last Admin: 11/12/20 10:06 Dose: 1 each Documented by: Naloxone HCl (Naloxone 0.4 Mg/Ml 1 Ml Vial) 0.2 mg IV Q2M PRN PRN Reason: Opioid Reversal Ondansetron HCl (Ondansetron 4 Mg/2 Ml Vial) 4 mg IVP Q8HR PRN PRN Reason: Nausea And Vomiting Pantoprazole Sodium (Pantoprazole 40 Mg Tablet) 40 mg PO AC-BRKFST [facility] Last Admin: 11/12/20 07:03 Dose: 40 mg Documented by: Zinc Sulfate (Zinc Sulfate 220 Mg Cap) 220 mg PO DAILY [facility] [place] Last Admin: 11/12/20 10:06 Dose: 220 mg Documented by: Objective - Vital Signs Vital signs: Vital Signs Temp 98.4 F 11/12/20 16:00 Pulse 92 11/12/20 19:00 Resp 21 11/12/20 19:00 BP 107/71 11/12/20 19:00 Pulse Ox 94 L 11/12/20 19:00 Intake & Output 11/12/20 11/12/20 11/13/20 06:59 18:59 06:59 Intake Total 900 900 75 Output Total 1450 1000 Balance -550 -100 75 Weight 99.5 kg Intake: IV 900 900 75 Sodium Chloride 0.9% 1, 900 900 75 000 ml @ 75 mls/hr IV . [id number] [facility] Rx#:[id number] Output: Urine 1450 1000 - Exam Gen: This is a 60-year-old male sitting up in the chair awake, alert and oriented 3, well-developed, well-nourished. ON high flow Airvo with oxygen delivery rate of 60 and FiO2 of 60% HEENT: Head is atraumatic, normocephalic. Pupils equal, round. Sclerae is anicteric. NECK: Supple. No JVD. No lymphadenopathy. No thyromegaly. LUNGS: Diminished breath sounds bilaterally with coarse rhonchi noted throughout. No intercostal retractions. HEART: S1, S2 are muffled ABDOMEN: Soft. Obese. Bowel sounds are present. No masses. No tenderness. EXTREMITIES: No pedal edema. No calf tenderness. NEUROLOGICAL: Patient is awake, alert and oriented x3. No focal defcits . diffusely weak. - Labs CBC & Chem 7: 11/12/20 03:17 11/12/20 03:17 Labs: Abnormal Lab Results - Last 24 Hours (Table) 11/12/20 11/12/20 11/12/20 Range/Units 03:17 03:17 03:17 Lymphocytes # 0.6 L (1.0-4.8) k/uL D-Dimer 1.43 H (<0.60) mg/L FEU Sodium 134 L (137-145) mmol/L BUN 23 H (9-20) mg/dL Creatinine 0.61 L (0.66-1.25) mg/dL Glucose 111 H (74-99) mg/dL Assessment and Plan Assessment: ASSESSMENT Acute COVID-19 bilateral interstitial pneumonia with acute hypoxic respiratory failure Lymphopenia Hyponatremia Elevated random glucose elevated AST, ALT possibly secondary to COVID-19 Elevated inflammatory markers of COVID-19 History of left hip surgery with multiple complications History of DVT history of pulmonary embolus history of kidney stones History of adenoidectomy History back surgery history of degenerative joint disease Full code PLAN: Recommend continue with current medications and current management. Patient continues to be on on Airvo high Flow at 60 and FiO2 of 60 % today. Pulmonary following closely along with infectious disease. Patient to continue on Lovenox along with vitamin and zinc supplements and dexamethasone. Patient did receiveis status post Tocilizumab. Due to Multiple complex medical issues prognosis is extremely guarded. Will repeat labs in continue to monitor closely. Continue with oxygen support and wean as tolerated. Patient is a full code.
[2020-11-13 05:20] LABS: HCT 44.7 % (39.0-53.0); HGB 15.1 gm/dL (13.0-17.5); MCH 28.1 pg (25.0-35.0); MCHC 33.8 g/dL (31.0-37.0); MCV 83.1 fL (80.0-100.0); Mean Platelet Volume 7.7; Platelet Count 224 k/uL (150-450); RBC 5.38 m/uL (4.30-5.90); RDW 14.6 % (11.5-15.5); WBC 10.5 k/uL (3.8-10.6)
[2020-11-13 05:35] LABS: ALT 122 U/L (4-49); AST 52 U/L (17-59); African American GFR (CKD) >90 (>60 ml/min/1.73 sqM); Alkaline Phosphatase 56 U/L (38-126); Anion Gap 5 mmol/L; Blood Urea Nitrogen 22 mg/dL (9-20); C Reactive Protein 0.5 mg/dL (<1.0); Calcium 8.6 mg/dL (8.4-10.2); Carbon Dioxide 25 mmol/L (22-30); Chloride 103 mmol/L (98-107); Glucose 120 mg/dL (74-99); LDH 967 U/L (313-618); Non-African American GFR(CKD) >90 (>60 ml/min/1.73 sqM); Potassium 4.4 mmol/L (3.5-5.1); Sodium 133 mmol/L (137-145); Total Bilirubin 0.4 mg/dL (0.2-1.3); Total Protein 5.5 g/dL (6.3-8.2)
[2020-11-13] MEDS: PANTOPRAZOLE 40 MG TABLET PO SCH (06:47)
--- NOTE | 2020-11-13 07:59 | XR ---
EXAMINATION TYPE: XR chest 1V portable DATE OF EXAM: 11/13/2020 COMPARISON: Chest x-ray 11/12/2020 HISTORY: Hypoxemia, abnormal chest x-ray TECHNIQUE: Single frontal view of the chest is obtained. FINDINGS: Patient is rotated. Patchy basilar density persists. Cardiac mediastinal silhouette is sta ble. There is no evident pneumothorax. Thoracic spondylosis is noted. There are overlying artifacts. Bones are unchanged. IMPRESSION: Correlate for pneumonia versus atelectasis.
[2020-11-13] MEDS: ALBUTEROL HFA INHALER INHALATION SCH ×4 (09:45→19:16)
[2020-11-13 10:32] VITALS: BMI 29.7
[2020-11-13] MEDS: ENOXAPARIN 40 MG/0.4 ML SYRINGE SQ SCH (10:35)
[2020-11-13] MEDS: CHOLECALCIFEROL 25 MCG (1000 IU) TABLET PO SCH (10:35)
[2020-11-13] MEDS: MULTIVITAMINS, THERA 1 EACH TAB PO SCH (10:35)
[2020-11-13] MEDS: ZINC SULFATE 220 MG CAP PO SCH (10:35)
[2020-11-13] MEDS: DEXAMETHASONE SOD PHOSPHATE 10 MG/ML 1 ML VIAL IV SCH (10:35)
[2020-11-13] MEDS: FAMOTIDINE 20 MG TAB PO SCH ×2 (10:35→21:30)
[2020-11-13] MEDS: ASCORBIC ACID 500 MG TAB PO SCH ×2 (10:35→21:30)
[2020-11-13] MEDS: SODIUM CHLORIDE 0.9% 1,000 ML IV SCH (10:48)
[2020-11-13] MEDS: FLUTICASONE 50MCG/SPRAY NASAL 16GM EA NOSTRIL SCH (10:52)
--- NOTE | 2020-11-13 12:26 | P.PN ---
Subjective Progress Note Date: 11/13/20 This 60-year-old white male patient of Dr. Moreno, with past medical history of DVT and bilateral PEs back in 2009, currently not on any chronic anticoagulation, hip replacement surgery, history of adenoidectomy and back surgery who presented to the emergency department on 11/06/2020 for evaluation of shortness of breath, fever, cough. Patient symptoms were suspicious for COVID-19 infection. His symptom onset was 10 days prior to common into the emergency department. His symptoms started with upper respiratory symptoms, productive cough of mild mucus, as well as dyspnea that has worsened over the last 1-2 days. Patient went to the urgent care on 11/06/2020 and was found to be hypoxic, and he was sent in to the emergency department for further treatment and evaluation for suspicion of COVID-19 pneumonia. Patient states his recently had COVID-19 infection, she had symptoms for 15 days. He denied any nausea, no vomiting, no abdominal pain no headaches. No lower extremity swelling, no chest discomfort. He has no chronic lung condition, he denies history of smoking. No hemoptysis. He reports subjective fever and chills at home. He is not vaccinated for COVID-19. At the urgent care clinic he was given a prednisone taper starting at 40 mg. His chest x-ray showed some coarsen ing of interstitial markings at the lower lung holt. EEG showed normal sinus rhythm, he is COVID-19 PCR was found to be positive, CBC showed white count of 4.4, hemoglobin of 15, lymphocytes, 0.3, his d-dimer was 1.05, sodium was 133, the rest of the electrolytes were unremarkable, BUN is 15 creatinine 0.65, his ferritin level was 1939, AST was 69, ALT was 55, LDH was 1297, CRP was 6.8, troponin was less than 0.012. Pro-calcitonin level was 0.14. Patient was outside the window for Remdesivir. He was also not a candidate for COVID antibiotic infusion. His been started on Decadron 6 mg daily, he was placed on prophylactic dose Lovenox, COVID-19 vitamin C cloudy vitamin C, vitamin D and zinc. He is currently up to 5 L of oxygen, and his pulse ox is 90-91%. CTA chest was completed showing no evidence of PE, and it showed extensive bilateral pulmonary infiltrate is consistent with pneumonia or RDS. His evaluation on 11/09/2020 patient is seen in the intensive care unit, he is awake and alert, oriented 3, still requiring high flow oxygen for Airvo, at 60 L and FiO2 of 90%, and his pulse ox was around 93-96%, he seems to be breathing comfortably, he states he feels better today, he did have an episode of shortness of breath last night. Today's follow-up chest x-ray has been reviewed showing bilateral lower lobe infiltrates, not significantly changed. He received a dose of Actos of his imatinib yesterday 800 mg 1, he remains on IV Decadron 6 mg daily, she is on prophylactic anticoagulation with Lovenox 40 mg daily and COVID-19 vitamins, including vitamin C, D, and zinc vitamins. No crackles at bilateral bases, no wheezing. Occasional cough, nonproductive, no complaints of chest discomfort. He states he slightly nauseous today, but he hasn't had anything to eat, he is requesting some dry saltine crackers. No emesis, no diarrhea, no abdominal discomfort. Today's labs have been reviewed. White blood cell count is 3.8, hemoglobin is 14.3, d-dimer is 0.84, sodium is 134, Celexa lites and renal profile were unremarkable, LDH is 1130, and CRP is 2.9, pro calcitonin level was low at 0.14. He is on 0.9 normal saline 75 ML per hour. In sinus mechanism, blood pressure is stable, currently 130/83. 8/2020, the patient is being seen in follow-up in the intensive care unit. The patient is essentially the same compared to yesterday. No worsening his ch est x-ray findings. He remains on high flow oxygen at 60 L with an FiO2 of 90%. Pulse ox is ranging as low as 88% up to 94%. He gets short of breath with limited amount of activity. He had a bowel movement yesterday and took a lot of energy and he became quite short of breath while having a bowel movement. He also is having some dry cough. No significant sputum production. White cell count is at 4.7 with a hemoglobin of 15.1. He is currently wearing 100% nonrebreather facemask and combination to his high flow oxygen. His LDH level from yesterday was down to 1130 and a CRP isn't 2.9 with a d-dimer of 0.8. Chest x-ray shows no significant interval change in the patient has infiltrates in the lung bases bilaterally. No nausea. No vomiting. No diarrhea. IV fluids are running in the form of normal saline at the rate of 75 mL an hour. The patient is also on Lovenox 40 mg subcu daily. He is on vitamins including vitamin C and E and zinc. His chest x-ray is unchanged. On examination she is to have some coarse crackles in lung bases bilaterally. No altered mentation. Appetite is low. 11/11/2020, I'm seeing the patient for a follow-up. He is feeling better today and he is breathing is more comfortable. He remains on high flow oxygen at 6 L with an FiO2 of 90%. On today's evaluation, he is talking comfortably. He has not used the 100% nonrebreather facemask. His pulse ox is around 92%. Chest x- ray shows a stable left lower lobe consolidation and some limited infiltration bilaterally. D-dimer from yesterday was at 0.8. Rest of the labs are all stable with a white cell count of 5.5 and hemoglobin of 15.4. CRP from yesterday was at 2.9 with a LDH level of 1130. He remains on Decadron 6 mg IV every 24 hours. He remains on anticoagulation with Lovenox 40 mg subcu every 24 hours. Eating well. No altered mentation. 11/13/2020, I'm seeing this patient for a follow-up. The patient is currently on high flow oxygen at 6 L and FiO2 of 70%. He is also on and off using the 100% on a beta facemasks. No significant change compared to yesterday. He jason ins on Decadron 6 mg IV every 24 hours. Remains on Lovenox 4 mg subcu for DVT prophylaxis. No chest pain. No headaches. No altered mentation. His cough is essentially dry. His LDH level and the CRP level were essentially dropping and the patient's chest x-rays remained stable over the past 48 hours. He is tolerating his diet is using incentive spirometer. His doing positional therapy and he is unable to fully pronate himself. Nevertheless, his overall condition is stable. He remains on multivitamins regarding his COVID 19 related pneumonia. Objective - Vital Signs Vital signs: Vital Signs Temp 98.9 F 11/13/20 08:00 Pulse 96 11/13/20 10:00 Resp 27 H 11/13/20 10:00 BP 111/68 11/13/20 10:00 Pulse Ox 87 L 11/13/20 12:15 Intake & Output 11/12/20 11/13/20 11/13/20 18:59 06:59 18:59 Intake Total 900 295 20 Output Total 1000 850 Balance -100 -555 20 Weight 99.5 kg Intake: IV 900 295 20 Sodium Chloride 0.9% 1, 900 295 20 000 ml @ 75 mls/hr IV . [id number] [facility] Rx#:[id number] Output: Urine 1000 850 Other: Voiding Method Urinal Urinal # Voids 0 0 - Exam GENERAL EXAM: Alert, very pleasant, 60-year-old white male, mild degree of respiratory distress, currently on high flow oxygen 60 L with an FiO2 of 70% along with 100% nonrebreather facemask. HEAD: Normocephalic/atraumatic. EYES: Normal reaction of pupils, equal size. Conjunctiva pink, sclera white. NOSE: Clear with pink turbinates. THROAT: No erythema or exudates. NECK: No masses, no JVD, no thyroid enlargement, no adenopathy. CHEST: No chest wall deformity. Symmetrical expansion. LUNGS: Equal air entry with bibasilar crackles, but no wheeze, rhonchi or dullness. CVS: Regular rate and rhythm, normal S1 and S2, no gallops, no murmurs, no rubs ABDOMEN: Soft, nontender. No hepatosplenomegaly, normal bowel sounds, no guarding or rigidity. EXTREMITIES: No clubbing, no edema, no cyanosis, 2+ pulses and upper and lower extremities. MUSCULOSKELETAL: Muscle strength and tone normal. SPINE: No scoliosis or deformity SKIN: No rashes CENTRAL NERVOUS SYSTEM: Alert and oriented -3. No focal deficits, tone is normal in all 4 extremities. PSYCHIATRIC: Alert and oriented -3. Appropriate affect. Intact judgment and insight. - Labs CBC & Chem 7: 11/13/20 04:42 11/13/20 04:42 Labs: Abnormal Lab Results - Last 24 Hours (Table) 11/13/20 11/13/20 Range/Units 04:42 04:42 D-Dimer 1.43 H (<0.60) mg/L FEU Sodium 133 L (137-145) mmol/L BUN 22 H (9-20) mg/dL Creatinine 0.61 L (0.66-1.25) mg/dL Glucose 120 H (74-99) mg/dL ALT 122 H (4-49) U/L Lactate Dehydrogenase 967 H (313-618) U/L Total Protein 5.5 L (6.3-8.2) g/dL Albumin 3.0 L (3.5-5.0) g/dL Microbiology - Last 24 Hours (Table) 11/12/20 16:55 Sputum Culture - Preliminary Sputum Assessment and Plan Plan: #1. Acute hypoxic respiratory failure related to acute COVID-19 pneumonia, outside the window for Remdesivir. Chronic candidate for COVID-19 antibiotic infusion. Onset of symptoms was greater than 10 days prior to presentation. Patient had worsening of his dyspnea and hypoxia, he is status post post-of tocilizumab infusion on 11/08/2020 clinically, the patient is unchanged over the past 48 hours. He remains on high flow oxygen at 60 L and the patient is also on FiO2 of 70% , clinically feeling well. Chest x-ray findings are stable. Oxygenation is stable. Remains on Decadron. Remains on Lovenox. #2. Myalgias, fever, cough, dyspnea related to the above #3. Previous history of DVT and bilateral PEs in 2009, currently not on chronic anticoagulation #4. History of kidney stones #5. Osteoarthritis . History of hip surgery #6. Nonsmoker Plan: Continue Decadron 6 mg IV every 24 hours continue Lovenox at a dose of 40 mg subcu daily Chest x-ray has been reviewed-relatively stable bibasilar infiltrates, and a stable left lower lobe consolidation Labs have been noted We'll try to prone this patient today with the help of the nursing staff IV fluids at 20 mL an hour Continue vitamins Patient is breathing fairly comfortably on today's exam, vital signs are stable, although still requiring high flow oxygen, Urged the patient to reposition from side to side, prone if able Family was updated Continue close monitoring in the intensive care unit The patient will be kept in the intensive care unit for another 24 hours. The p atient is showing very slow but limited progress.
[2020-11-13] MEDS: BENZONATATE 100 MG CAP PO PRN (15:08)
--- NOTE | 2020-11-13 18:37 | P.PN ---
Subjective This is a pleasant 60 years old male with multiple medical problems presents with respiratory distress found to have bilateral covid Pneumonia currently he remains in the ICU he needs 60% high flow oxygen via nasal cannula. There's no vitals are stable and he is afebrile. Labs look stable, d-dimer mildly elevated at 1.4, lactate dehydrogenase is slightly elevated at 967, C-reactive protein is normal at 0.5. With chest X ray showing bilateral infiltrates He remains on dexamethasone IV 6 mg daily, multiple vitamins, vitamin C, vitamin D and zinc. Lovenox. He is outside of the window of remdesivir since his presentation is more than 10 days from onset of symptoms however he is status post tocizulumab. Objective - Vital Signs Vital signs: Vital Signs Temp 97.7 F 11/13/20 12:00 Pulse 104 H 11/13/20 12:00 Resp 23 11/13/20 12:00 BP 142/70 11/13/20 12:00 Pulse Ox 87 L 11/13/20 12:15 Intake & Output 11/12/20 11/13/20 11/13/20 18:59 06:59 18:59 Intake Total 900 295 160 Output Total 1000 850 Balance -100 -555 160 Weight 99.5 kg Intake: IV 900 295 60 NS 40 Sodium Chloride 0.9% 1, 900 295 20 000 ml @ 75 mls/hr IV . [id number] [facility] Rx#:[id number] Oral 100 Output: Urine 1000 850 Other: Voiding Method Urinal Urinal # Voids 0 0 - Labs CBC & Chem 7: 11/13/20 04:42 11/13/20 04:42 Labs: Abnormal Lab Results - Last 24 Hours (Table) 11/13/20 11/13/20 Range/Units 04:42 04:42 D-Dimer 1.43 H (<0.60) mg/L FEU Sodium 133 L (137-145) mmol/L BUN 22 H (9-20) mg/dL Creatinine 0.61 L (0.66-1.25) mg/dL Glucose 120 H (74-99) mg/dL ALT 122 H (4-49) U/L Lactate Dehydrogenase 967 H (313-618) U/L Total Protein 5.5 L (6.3-8.2) g/dL Albumin 3.0 L (3.5-5.0) g/dL Microbiology - Last 24 Hours (Table) 11/12/20 16:55 Sputum Culture - Preliminary Sputum Assessment and Plan Assessment: Bilateral Covid pneumonia Hypoxic respiratory failure Elevated inflammatory markers Plan: This is a pleasant 60 years old male who presents with covid and pneumonia. Continue with multiple vitamin cocktail. Continue with Lovenox and dexamethason e Continue with high flow oxygen nasal cannula Pulmonary consult Labs and medication were reviewed.. Continue same treatment. Continue with symptomatic treatment. Resume home medication. Monitor lytes and vitals. DVT and GI prophylaxis. Further recommendationsas per clinical course of the davey ent DVT prophylaxis: Subcutaneous Lovenox GI Prophylaxis: Pepcid Prognosis is guarded
[2020-11-13] MEDS: LORATADINE 10 MG TAB PO SCH (21:30)
[2020-11-14 04:04] LABS: Basophils % (A) 0 %; Eosinophils % (A) 0 %; HCT 48.2 % (39.0-53.0); HGB 16.3 gm/dL (13.0-17.5); Lymphocytes # (A) 0.5 k/uL (1.0-4.8); Lymphocytes % (A) 5 %; MCH 29.1 pg (25.0-35.0); MCHC 33.9 g/dL (31.0-37.0); Mean Platelet Volume 8.4; Monocytes # (A) 0.5 k/uL (0-1.0); Monocytes % (A) 5 %; Neutrophils # (A) 9.8 k/uL (1.3-7.7); Neutrophils % (A) 90 %; Platelet Count 211 k/uL (150-450); RBC 5.61 m/uL (4.30-5.90); RDW 14.7 % (11.5-15.5); WBC 10.9 k/uL (3.8-10.6)
[2020-11-14 04:28] LABS: ALT 139 U/L (4-49); AST 60 U/L (17-59); African American GFR (CKD) >90 (>60 ml/min/1.73 sqM); Albumin 3.2 g/dL (3.5-5.0); Alkaline Phosphatase 70 U/L (38-126); Anion Gap 5 mmol/L; Blood Urea Nitrogen 26 mg/dL (9-20); C Reactive Protein <0.5 mg/dL (<1.0); Calcium 8.8 mg/dL (8.4-10.2); Carbon Dioxide 25 mmol/L (22-30); Chloride 102 mmol/L (98-107); Glucose 233 mg/dL (74-99); LDH 976 U/L (313-618); Non-African American GFR(CKD) >90 (>60 ml/min/1.73 sqM); Potassium 4.7 mmol/L (3.5-5.1); Sodium 132 mmol/L (137-145); Total Bilirubin 0.4 mg/dL (0.2-1.3); Total Protein 5.9 g/dL (6.3-8.2)
--- NOTE | 2020-11-14 08:28 | XR ---
EXAMINATION TYPE: XR chest 1V portable DATE OF EXAM: 11/14/2020 COMPARISON: Chest x-ray 11/13/2020 HISTORY: Hypoxemia, abnormal chest x-ray TECHNIQUE: Single frontal view of the chest is obtained. FINDINGS: There is no significant interval change. IMPRESSION: Stable exam. Correlate for possible pneumonia, atelectasis.
[2020-11-14] MEDS: ENOXAPARIN 40 MG/0.4 ML SYRINGE SQ SCH (08:53)
[2020-11-14] MEDS: MULTIVITAMINS, THERA 1 EACH TAB PO SCH (08:53)
[2020-11-14] MEDS: DEXAMETHASONE SOD PHOSPHATE 10 MG/ML 1 ML VIAL IV SCH (08:53)
[2020-11-14] MEDS: ASCORBIC ACID 500 MG TAB PO SCH ×2 (08:53→20:51)
[2020-11-14] MEDS: ZINC SULFATE 220 MG CAP PO SCH (08:53)
[2020-11-14] MEDS: FAMOTIDINE 20 MG TAB PO SCH ×2 (08:53→20:51)
[2020-11-14] MEDS: CHOLECALCIFEROL 25 MCG (1000 IU) TABLET PO SCH (08:53)
[2020-11-14] MEDS: FLUTICASONE 50MCG/SPRAY NASAL 16GM EA NOSTRIL SCH (08:54)
[2020-11-14] MEDS: SODIUM CHLORIDE 0.9% 1,000 ML IV SCH (08:54)
[2020-11-14] MEDS: ALBUTEROL HFA INHALER INHALATION SCH ×5 (08:56→21:03)
--- NOTE | 2020-11-14 09:17 | P.PN ---
Subjective Progress Note Date: 11/14/20 Principal diagnosis: COVID 19 pneumonia This 60-year-old white male patient of Dr. Moreno, with past medical history of DVT and bilateral PEs back in 2009, currently not on any chronic anticoagulation, hip replacement surgery, history of adenoidectomy and back surgery who presented to the emergency department on 11/06/2020 for evaluation of shortness of breath, fever, cough. Patient symptoms were suspicious for COVID-19 infection. His symptom onset was 10 days prior to common into the emergency department. His symptoms started with upper respiratory symptoms, productive cough of mild mucus, as well as dyspnea that has worsened over the last 1-2 days. Patient went to the urgent care on 11/06/2020 and was found to be hypoxic, and he was sent in to the emergency department for further treatment and evaluation for suspicion of COVID-19 pneumonia. Patient states his recently had COVID-19 infection, she had symptoms for 15 days. He denied any nausea, no vomiting, no abdominal pain no headaches. No lower extremity swelling, no chest discomfort. He has no chronic lung condition, he denies history of smoking. No hemoptysis. He reports subjective fever and chills at home. He is not vaccinated for COVID-19. At the urgent care clinic he was given a prednisone taper starting at 40 mg. His chest x-ray showed some coarsening of interstitial markings at the lower lung holt. EEG showed normal sinus rhythm, he is COVID-19 PCR was found to be positive, CBC showed white count of 4.4, hemoglobin of 15, lymphocytes, 0.3, his d-dimer was 1.05, sodium was 133, the rest of the electrolytes were unremarkable, BUN is 15 creatinine 0.65, his ferritin level was 1939, AST was 69, ALT was 55, LDH was 1297, CRP was 6.8, troponin was less than 0.012. Pro-calcitonin level was 0.14. Patient was outside the window for Remdesivir. He was also not a candidate for COVID antibiotic infusion. His been started on Decadron 6 mg daily, he was placed on prophylactic dose Lovenox, COVID-19 vitamin C cloudy vitamin C, vitamin D and zinc. He is currently up to 5 L of oxygen, and his pulse ox is 90-91%. CTA chest was completed showing no evidence of PE, and it showed extensive bilateral pulmonary infiltrate is consistent with pneumonia or RDS. His evaluation on 11/09/2020 patient is seen in the intensive care unit, he is awake and alert, oriented 3, still requiring high flow oxygen for Airvo, at 60 L and FiO2 of 90%, and his pulse ox was around 93-96%, he seems to be breathing comfortably, he states he feels better today, he did have an episode of shor tness of breath last night. Today's follow-up chest x-ray has been reviewed showing bilateral lower lobe infiltrates, not significantly changed. He received a dose of Actos of his imatinib yesterday 800 mg 1, he remains on IV Decadron 6 mg daily, she is on prophylactic anticoagulation with Lovenox 40 mg daily and COVID-19 vitamins, including vitamin C, D, and zinc vitamins. No crackles at bilateral bases, no wheezing. Occasional cough, nonproductive, no complaints of chest discomfort. He states he slightly nauseous today, but he hasn't had anything to eat, he is requesting some dry saltine crackers. No emesis, no diarrhea, no abdominal discomfort. Today's labs have been reviewed. White blood cell count is 3.8, hemoglobin is 14.3, d-dimer is 0.84, sodium is 134, Celexa lites and renal profile were unremarkable, LDH is 1130, and CRP is 2.9, pro calcitonin level was low at 0.14. He is on 0.9 normal saline 75 ML per hour. In sinus mechanism, blood pressure is stable, currently 130/83. On today's evaluation 11/12/2020 patient seen in follow-up in intensive care. Morning patient is on irritable at 60 L and FiO2 was dropped down to 70%, his pulse ox is around 91-95%, his breathing is stable, and has been pronating intermittently in bed, tolerating it fairly well, this morning he sitting up in the bed, his any worsening dyspnea, no chest discomfort, he is awake and alert, oriented 3, he is in sinus mechanism with a rate of 92 BPM, he is tolerating oral intake, no nausea or vomiting no diarrhea, he is working on incentive spirometer. Remains on Decadron 6 mg daily, he is on Lovenox at prophylactic dose 40 mg daily, he is on COVID-19 vitamins. Today's chest x-ray has been reviewed showing bilateral patchy infiltrates that are stable in appearance. Today's labs have been reviewed showing white blood cell count of 7.6, hemoglobin is 15.5, lymphocyte count is 0.6, today's d-dimer is 1.43, sodium is 134, potassium is 4.5, B1 is 23, creatinine 0.61. His last LDH from 2 days ago was thousand 130, and his CRP from today is 0.8. Vitals have been stable overnight, he has had no fever or chills Today's evaluation on the 11/14/2020 patient is seen in intensive care unit, he remains on Airvo currently at 60 L and FiO2 of 65%, and his pulse ox is 90-91%. No worsening dyspnea, patient does desaturate and becomes dyspneic with exertion, and takes a little while to recover, however he has been able to get up out of bed, and sit in the chair, and use the bedside commode. Vital signs are stable, no fever or chills, blood pressure stable, he is in sinus mechanism with a controlled rate, he is on 0.9 normal saline at a rate of 20 ML per hour, no other drips. He remains on Decadron 6 mg IV daily, he is on prophylactic dose Lovenox 40 mg daily. Lung sounds reveal some fine crackles at bilateral bases, no rhonchi or wheezing, today's chest x-ray has been reviewed showing no significant interval change, and patchy basilar densities persist. Rest of labs have been reviewed showing white blood cell count of 10.9, hemoglobin 16.3, lymphocyte count is 0.5, last d-dimer from yesterday was 1.43, serum sodium is 132, stable electrolytes are unremarkable, B1 is 26 creatinine 0.80. Pro calcitonin level was negative at 0.05. Objective - Vital Signs Vital signs: Vital Signs Temp 98.2 F 11/14/20 04:00 Pulse 78 11/14/20 07:00 Resp 21 11/14/20 07:00 BP 119/65 11/14/20 07:00 Pulse Ox 91 L 11/14/20 08:58 Intake & Output 11/13/20 11/14/20 11/14/20 18:59 06:59 18:59 Intake Total 380 240 20 Output Total 700 1000 Balance -320 -760 20 Weight 99.5 kg Intake: IV 180 240 20 NS 160 240 20 Sodium Chloride 0.9% 1, 20 000 ml @ 75 mls/hr IV . [id number] [facility] Rx#:[id number] Oral 200 Output: Urine 700 1000 Other: Voiding Method Urinal Urinal # Voids 0 1 0 - Exam GENERAL EXAM: Alert, very pleasant, 60-year-old white male, resting in a gurney in the emergency department on 60 liters and FiO2 of 65% with a pulse ox of 91% comfortable in no apparent distress. HEAD: Normocephalic/atraumatic. EYES: Normal reaction of pupils, equal size. Conjunctiva pink, sclera white. NOSE: Clear with pink turbinates. THROAT: No erythema or exudates. NECK: No masses, no JVD, no thyroid enlargement, no adenopathy. CHEST: No chest wall deformity. Symmetrical expansion. LUNGS: Equal air entry with fine bibasilar crackles, but no wheeze, rhonchi or dullness. CVS: Regular rate and rhythm, normal S1 and S2, no gallops, no murmurs, no rubs ABDOMEN: Soft, nontender. No hepatosplenomegaly, normal bowel sounds, no guarding or rigidity. EXTREMITIES: No clubbing, no edema, no cyanosis, 2+ pulses and upper and lower extremities. MUSCULOSKELETAL: Muscle strength and tone normal. SPINE: No scoliosis or deformity SKIN: No rashes CENTRAL NERVOUS SYSTEM: Alert and oriented -3. No focal deficits, tone is normal in all 4 extremities. PSYCHIATRIC: Alert and oriented -3. Appropriate affect. Intact judgment and insight. - Labs CBC & Chem 7: 11/14/20 03:08 11/14/20 03:08 Labs: Abnormal Lab Results - Last 24 Hours (Table) 11/14/20 11/14/20 Range/Units 03:08 03:08 WBC 10.9 H (3.8-10.6) k/uL Neutrophils # 9.8 H (1.3-7.7) k/uL Lymphocytes # 0.5 L (1.0-4.8) k/uL Sodium 132 L (137-145) mmol/L BUN 26 H (9-20) mg/dL Glucose 233 H (74-99) mg/dL AST 60 H (17-59) U/L ALT 139 H (4-49) U/L Lactate Dehydrogenase 976 H (313-618) U/L Total Protein 5.9 L (6.3-8.2) g/dL Albumin 3.2 L (3.5-5.0) g/dL Microbiology - Last 24 Hours (Table) 11/12/20 16:55 Gram Stain - Preliminary Sputum Sputum Culture - Preliminary Assessment and Plan Plan: Assessment: #1. Acute hypoxic respiratory failure related to acute COVID-19 pneumonia, outside the window for Remdesivir. Chronic candidate for COVID-19 antibiotic infusion. Onset of symptoms was greater than 10 days prior to presentation. Patient had worsening of his dyspnea and hypoxia, he is status post post-of t ocilizumab infusion on 11/08/2020 #2. Myalgias, fever, cough, dyspnea related to the above. Myalgias have resolved, fever pattern has improved, patient is still dyspneic and hypoxic and requiring high flow oxygen #3. Previous history of DVT and bilateral PEs in 2009, currently not on chronic anticoagulation #4. History of kidney stones #5. Osteoarthritis . History of hip surgery #6. Nonsmoker Plan: Continue Decadron continue current dose Lovenox Chest x-ray has been reviewed-relatively stable bibasilar infiltrates Labs have been reviewed, and inflammatory markers are stable. D-dimer is not significantly elevated, will continue with current dose of prophylactic Lovenox Patient is breathing fairly comfortably on today's exam, vital signs are stable, and Airvo at 60 L and FiO2 of 65%, FiO2 he can further be decreased down to 60% Continue current medical treatment No need for daily chest X rays, chest x-rays will be every other day Increase activity as tolerated, encourage the patient to sit up in the chair Stable for transfer out of intensive care unit today to medical surgical floor without telemetry I performed a history & physical examination of the patient and discussed their management with my nurse practitioner, Milka Giordano. I reviewed the nurse practitioner's note and agree with the documented findings and plan of care. Lung sounds are positive for diminished breath sounds throughout the lung holt. The findings and the impression was discussed with the patient. I attest to the documentation by the nurse practitioner. Time with Patient: Less than 30
[2020-11-14] MEDS: LORATADINE 10 MG TAB PO SCH (20:51)
--- NOTE | 2020-11-14 22:41 | P.PN ---
Progress Note - Text Progress Note Date: 11/14/20 REASON FOR FOLLOWUP: COVID-19 pneumonia. INTERVAL HISTORY: Patient remains to be afebrile. The patient is breathing comfortably. FiO2 is currently down to 60%. Hemodynamically stable not on pressor support. cough has decreased in intensity and mild sputum production. No abdominal pain or diarrhea. PHYSICAL EXAMINATION: Blood pressure 120/70, pulse 80, temperature 98. He is 90% on 70% FiO2. General description is a middle-aged male up in the bed in no distress. Respiratory system: Unlabored breathing. No wheeze. Heart: S1, S2. Regular rate and rhythm. Abdomen: Soft, no tenderness. Extremities: No edema of the feet. LABS: reviewed DIAGNOSTIC IMPRESSION AND PLAN: Patient with acute COVID-19 pneumonia in this patient who did not qualify for Remdesivir, pt did receive a dose of Actemra. The patient have slow clinical improvement. He is currently covered with dexamethasone, Lovenox, zinc and ascorbic acid to continue and monitor clinical course closely.
--- NOTE | 2020-11-14 23:10 | P.PN ---
Subjective This is a pleasant 60 years old male with multiple medical problems presents with respiratory distress found to have bilateral covid Pneumonia currently he remains in the ICU he needs 60% high flow oxygen via nasal cannula. There's no vitals are stable and he is afebrile. Labs look stable, d-dimer mildly elevated at 1.4, lactate dehydrogenase is slightly elevated at 967, C-reactive protein is normal at 0.5. With chest X ray showing bilateral infiltrates He remains on dexamethasone IV 6 mg daily, multiple vitamins, vitamin C, vitamin D and zinc. Lovenox. He is outside of the window of remdesivir since his presentation is more than 10 days from onset of symptoms however he is status post tocizulumab. 11/14/2020 Patient's clinical condition does not change much from yesterday. He still was some dyspnea. A still on 60 FiO2 of oxygen via high flow nasal cannula Labs look stable Remains on Lovenox, dexamethasone, vitamin C, D and zinc Lactic dehydrogenase is elevated at 976 similar to yesterday and C-reactive protein less than 0.5. Patient will be transferred to the general medical floor per ICU team Objective - Vital Signs Vital signs: Vital Signs Temp 98.3 F 11/14/20 08:00 Pulse 90 11/14/20 10:00 Resp 23 11/14/20 10:00 BP 128/72 11/14/20 11:00 Pulse Ox 93 L 11/14/20 10:00 Intake & Output 11/13/20 11/14/20 11/14/20 18:59 06:59 18:59 Intake Total 380 240 80 Output Total 700 1000 Balance -320 -760 80 Weight 99.5 kg Intake: IV 180 240 80 NS 160 240 80 Sodium Chloride 0.9% 1, 20 000 ml @ 75 mls/hr IV . [id number] [facility] Rx#:[id number] Oral 200 Output: Urine 700 1000 Other: Voiding Method Urinal Urinal Urinal # Voids 0 1 0 - Exam GENERAL: The patient is alert and oriented x3, not in any acute distress. Well developed, well nourished. HEENT: Pupils are round and equally reacting to light. EOMI. No scleral icterus. No conjunctival pallor. Normocephalic, atraumatic. No pharyngeal erythema. No thyromegaly. CARDIOVASCULAR: S1 and S2 present. No murmurs, rubs, or gallops. PULMONARY: Chest is clear to auscultation, no wheezing or crackles. ABDOMEN: Soft, nontender, nondistended, normoactive bowel sounds. No palpable organomegaly. MUSCULOSKELETAL: No joint swelling or deformity. EXTREMITIES: No cyanosis, clubbing, or pedal edema. NEUROLOGICAL: Gross neurological examination did not reveal any focal deficits. SKIN: No rashes. no petechiae. - Labs CBC & Chem 7: 11/14/20 03:08 11/14/20 03:08 Labs: Abnormal Lab Results - Last 24 Hours (Table) 11/14/20 11/14/20 Range/Units 03:08 03:08 WBC 10.9 H (3.8-10.6) k/uL Neutrophils # 9.8 H (1.3-7.7) k/uL Lymphocytes # 0.5 L (1.0-4.8) k/uL Sodium 132 L (137-145) mmol/L BUN 26 H (9-20) mg/dL Glucose 233 H (74-99) mg/dL AST 60 H (17-59) U/L ALT 139 H (4-49) U/L Lactate Dehydrogenase 976 H (313-618) U/L Total Protein 5.9 L (6.3-8.2) g/dL Albumin 3.2 L (3.5-5.0) g/dL Microbiology - Last 24 Hours (Table) 11/12/20 16:55 Gram Stain - Preliminary Sputum Sputum Culture - Preliminary Assessment and Plan Assessment: Bilateral Covid pneumonia Hypoxic respiratory failure Elevated inflammatory markers Plan: This is a pleasant 60 years old male who presents with covid and pneumonia. Continue with multiple vitamin cocktail. Continue with Lovenox and dexamethasone Continue with high flow oxygen nasal cannula Pulmonary consult Labs and medication were reviewed.. Continue same treatment. Continue with symptomatic treatment. Resume home medication. Monitor lytes and vitals. DVT and GI prophylaxis. Further recommendationsas per clinical course of the patient DVT prophylaxis: Subcutaneous Lovenox GI Prophylaxis: Pepcid Prognosis is guarded
[2020-11-15] MEDS: ZINC SULFATE 220 MG CAP PO SCH (08:20)
[2020-11-15] MEDS: ENOXAPARIN 40 MG/0.4 ML SYRINGE SQ SCH (08:20)
[2020-11-15] MEDS: ASCORBIC ACID 500 MG TAB PO SCH ×2 (08:21→22:27)
[2020-11-15] MEDS: DEXAMETHASONE SOD PHOSPHATE 10 MG/ML 1 ML VIAL IV SCH (08:21)
[2020-11-15] MEDS: FAMOTIDINE 20 MG TAB PO SCH ×2 (08:21→22:28)
[2020-11-15] MEDS: CHOLECALCIFEROL 25 MCG (1000 IU) TABLET PO SCH (08:21)
[2020-11-15] MEDS: ALBUTEROL HFA INHALER INHALATION SCH ×4 (09:34→19:55)
[2020-11-15] MEDS: FLUTICASONE 50MCG/SPRAY NASAL 16GM EA NOSTRIL SCH (10:11)
[2020-11-15] MEDS: SODIUM CHLORIDE 0.9% 1,000 ML IV SCH (10:12)
--- NOTE | 2020-11-15 12:05 | P.PN ---
Subjective Progress Note Date: 11/15/20 This 60-year-old white male patient of Dr. Moreno, with past medical history of DVT and bilateral PEs back in 2009, currently not on any chronic anticoagulation, hip replacement surgery, history of adenoidectomy and back surgery who presented to the emergency department on 11/06/2020 for evaluation of shortness of breath, fever, cough. Patient symptoms were suspicious for COVID-19 infection. His symptom onset was 10 days prior to common into the emergency department. His symptoms started with upper respiratory symptoms, productive cough of mild mucus, as well as dyspnea that has worsened over the last 1-2 days. Patient went to the urgent care on 11/06/2020 and was found to be hypoxic, and he was sent in to the emergency department for further treatment and evaluation for suspicion of COVID-19 pneumonia. Patient states his recently had COVID-19 infection, she had symptoms for 15 days. He denied any nausea, no vomiting, no abdominal pain no headaches. No lower extremity swelling, no chest discomfort. He has no chronic lung condition, he denies history of smoking. No hemoptysis. He reports subjective fever and chills at home. He is not vaccinated for COVID-19. At the urgent care clinic he was given a prednisone taper starting at 40 mg. His chest x-ray showed some coarsen ing of interstitial markings at the lower lung holt. EEG showed normal sinus rhythm, he is COVID-19 PCR was found to be positive, CBC showed white count of 4.4, hemoglobin of 15, lymphocytes, 0.3, his d-dimer was 1.05, sodium was 133, the rest of the electrolytes were unremarkable, BUN is 15 creatinine 0.65, his ferritin level was 1939, AST was 69, ALT was 55, LDH was 1297, CRP was 6.8, troponin was less than 0.012. Pro-calcitonin level was 0.14. Patient was outside the window for Remdesivir. He was also not a candidate for COVID antibiotic infusion. His been started on Decadron 6 mg daily, he was placed on prophylactic dose Lovenox, COVID-19 vitamin C cloudy vitamin C, vitamin D and zinc. He is currently up to 5 L of oxygen, and his pulse ox is 90-91%. CTA chest was completed showing no evidence of PE, and it showed extensive bilateral pulmonary infiltrate is consistent with pneumonia or RDS. His evaluation on 11/09/2020 patient is seen in the intensive care unit, he is awake and alert, oriented 3, still requiring high flow oxygen for Airvo, at 60 L and FiO2 of 90%, and his pulse ox was around 93-96%, he seems to be breathing comfortably, he states he feels better today, he did have an episode of shortness of breath last night. Today's follow-up chest x-ray has been reviewed showing bilateral lower lobe infiltrates, not significantly changed. He received a dose of Actos of his imatinib yesterday 800 mg 1, he remains on IV Decadron 6 mg daily, she is on prophylactic anticoagulation with Lovenox 40 mg daily and COVID-19 vitamins, including vitamin C, D, and zinc vitamins. No crackles at bilateral bases, no wheezing. Occasional cough, nonproductive, no complaints of chest discomfort. He states he slightly nauseous today, but he hasn't had anything to eat, he is requesting some dry saltine crackers. No emesis, no diarrhea, no abdominal discomfort. Today's labs have been reviewed. White blood cell count is 3.8, hemoglobin is 14.3, d-dimer is 0.84, sodium is 134, Celexa lites and renal profile were unremarkable, LDH is 1130, and CRP is 2.9, pro calcitonin level was low at 0.14. He is on 0.9 normal saline 75 ML per hour. In sinus mechanism, blood pressure is stable, currently 130/83. 8/2020, the patient is being seen in follow-up in the intensive care unit. The patient is essentially the same compared to yesterday. No worsening his ch est x-ray findings. He remains on high flow oxygen at 60 L with an FiO2 of 90%. Pulse ox is ranging as low as 88% up to 94%. He gets short of breath with limited amount of activity. He had a bowel movement yesterday and took a lot of energy and he became quite short of breath while having a bowel movement. He also is having some dry cough. No significant sputum production. White cell count is at 4.7 with a hemoglobin of 15.1. He is currently wearing 100% nonrebreather facemask and combination to his high flow oxygen. His LDH level from yesterday was down to 1130 and a CRP isn't 2.9 with a d-dimer of 0.8. Chest x-ray shows no significant interval change in the patient has infiltrates in the lung bases bilaterally. No nausea. No vomiting. No diarrhea. IV fluids are running in the form of normal saline at the rate of 75 mL an hour. The patient is also on Lovenox 40 mg subcu daily. He is on vitamins including vitamin C and E and zinc. His chest x-ray is unchanged. On examination she is to have some coarse crackles in lung bases bilaterally. No altered mentation. Appetite is low. 11/11/2020, I'm seeing the patient for a follow-up. He is feeling better today and he is breathing is more comfortable. He remains on high flow oxygen at 6 L with an FiO2 of 90%. On today's evaluation, he is talking comfortably. He has not used the 100% nonrebreather facemask. His pulse ox is around 92%. Chest x- ray shows a stable left lower lobe consolidation and some limited infiltration bilaterally. D-dimer from yesterday was at 0.8. Rest of the labs are all stable with a white cell count of 5.5 and hemoglobin of 15.4. CRP from yesterday was at 2.9 with a LDH level of 1130. He remains on Decadron 6 mg IV every 24 hours. He remains on anticoagulation with Lovenox 40 mg subcu every 24 hours. Eating well. No altered mentation. 11/13/2020, I'm seeing this patient for a follow-up. The patient is currently on high flow oxygen at 6 L and FiO2 of 70%. He is also on and off using the 100% on a beta facemasks. No significant change compared to yesterday. He jason ins on Decadron 6 mg IV every 24 hours. Remains on Lovenox 4 mg subcu for DVT prophylaxis. No chest pain. No headaches. No altered mentation. His cough is essentially dry. His LDH level and the CRP level were essentially dropping and the patient's chest x-rays remained stable over the past 48 hours. He is tolerating his diet is using incentive spirometer. His doing positional therapy and he is unable to fully pronate himself. Nevertheless, his overall condition is stable. He remains on multivitamins regarding his COVID 19 related pneumonia. 11/14/2020, the patient continues to show signs of improvement. This morning he is on the oxygen flow of 50 L with an FiO2 of 50%. Doing well. Pulse ox is 93%. Afebrile. He remains on Decadron 6 mg IV every 24 hours. No new complaints. Is able to get out of the bed. Is able to sit up on a chair. Occasional dry cough. No significant sputum production. No hemoptysis. No pleurisy. Using incentive spirometer. White cell count is at 10.9 with hemoglobin of 16. BUN is at 26 with a creatinine of 0.8. LDH level is at 976 and the pro calcitonin level is at 0.05. The d-dimer is at 1.4. Remains on Lovenox 40 mg subcu every 24 hours. Objective - Vital Signs Vital signs: Vital Signs Temp 98.3 F 11/15/20 08:00 Pulse 85 11/15/20 08:00 Resp 17 11/15/20 08:00 BP 129/67 11/15/20 08:00 Pulse Ox 91 L 11/15/20 11:38 Intake & Output 11/14/20 11/15/20 11/15/20 18:59 06:59 18:59 Intake Total 100 450 Output Total 600 900 Balance -500 -450 Intake: IV 100 0 NS 100 0 Oral 450 Output: Urine 600 900 Other: Voiding Method Urinal # Voids 0 - Exam GENERAL EXAM: Alert, very pleasant, 60-year-old white male, mild degree of respiratory distress, currently on high flow oxygen 50 L with an FiO2 of 50% along with 100% nonrebreather facemask. HEAD: Normocephalic/atraumatic. EYES: Normal reaction of pupils, equal size. Conjunctiva pink, sclera white. NOSE: Clear with pink turbinates. THROAT: No erythema or exudates. NECK: No masses, no JVD, no thyroid enlargement, no adenopathy. CHEST: No chest wall deformity. Symmetrical expansion. LUNGS: Equal air entry with bibasilar crackles, but no wheeze, rhonchi or dullness. CVS: Regular rate and rhythm, normal S1 and S2, no gallops, no murmurs, no rubs ABDOMEN: Soft, nontender. No hepatosplenomegaly, normal bowel sounds, no guarding or rigidity. EXTREMITIES: No clubbing, no edema, no cyanosis, 2+ pulses and upper and lower extremities. MUSCULOSKELETAL: Muscle strength and tone normal. SPINE: No scoliosis or deformity SKIN: No rashes CENTRAL NERVOUS SYSTEM: Alert and oriented -3. No focal deficits, tone is normal in all 4 extremities. PSYCHIATRIC: Alert and oriented -3. Appropriate affect. Intact judgment and insight. - Labs CBC & Chem 7: 11/14/20 03:08 11/14/20 03:08 Labs: Microbiology - Last 24 Hours (Table) 11/12/20 16:55 Gram Stain - Final Sputum Sputum Culture - Final 11/14/20 12:20 Gram Stain - Preliminary Sputum Sputum Culture - Preliminary Assessment and Plan Plan: #1. Acute hypoxic respiratory failure related to acute COVID-19 pneumonia, o utside the window for Remdesivir. Chronic candidate for COVID-19 antibiotic infusion. Onset of symptoms was greater than 10 days prior to presentation. Patient had worsening of his dyspnea and hypoxia, he is status post post-of tocilizumab infusion on 11/08/2020 clinically, the patient is unchanged over the past 48 hours. He remains on on high flow oxygen at 15 L with an FiO2 of 50%. Oxygenation is stable for now. We'll continue weaning the FiO2 as tolerated. We will also wean the oxygen flow. Recommend upping the flow down to 45 L. #2. Myalgias, fever, cough, dyspnea related to the above #3. Previous history of DVT and bilateral PEs in 2009, currently not on chronic anticoagulation #4. History of kidney stones #5. Osteoarthritis . History of hip surgery #6. Nonsmoker Plan: Continue Decadron 6 mg IV every 24 hours continue Lovenox at a dose of 40 mg subcu daily Clinically improving and without oxygen flow down to 45 L with an FiO2 of 50% IV fluids at 20 mL an hour Continue vitamins Patient is breathing fairly comfortably on today's exam, vital signs are stable Family was updated Inflammatory markers were noted. LDH is at 976 and the CRP is less than 0.5. Continue close monitoring in the intensive care unit The patient can be moved out of the intensive care unit today.
[2020-11-15] MEDS: MULTIVITAMINS, THERA 1 EACH TAB PO SCH (13:21)
--- NOTE | 2020-11-15 16:55 | PN ---
PROGRESS NOTE DATE OF SERVICE: 11/15/2020 REASON FOR FOLLOWUP: COVID-19 pneumonia. INTERVAL HISTORY: The patient is afebrile. The patient is breathing more comfortably. The patient's FiO2 is cut down to 50%. Denies having any chest pain or cough no vomiting. No abdominal pain or diarrhea. PHYSICAL EXAMINATION: Blood pressure 129/67, pulse 85, temperature 98.3. He is 95% on 50% FiO2. GENERAL DESCRIPTION: General description is a middle-aged male up in the chair. RESPIRATORY SYSTEM: Unlabored breathing. Decreased intensity of breath sounds. HEART: S1, S2. Regular rate and rhythm. ABDOMEN: Soft. No tenderness. LABS: Hemoglobin is 18, white count 10.9, BUN of 26, creatinine 0.80. DIAGNOSTIC IMPRESSION AND PLAN: Patient with acute COVID-19 infection and this patient has slow clinical improvement. The patient has received Actemra and is currently with no evidence of any secondary bacterial infection. Blood gases remain normal. Continue with dexamethasone, Lovenox, zinc, ascorbic acid and respiratory support and monitor his clinical course closely. MMODL / IJN: [id number] /
--- NOTE | 2020-11-15 17:08 | P.PN ---
Subjective This is a pleasant 60 years old male with multiple medical problems presents with respiratory distress found to have bilateral covid Pneumonia currently he remains in the ICU he needs 60% high flow oxygen via nasal cannula. There's no vitals are stable and he is afebrile. Labs look stable, d-dimer mildly elevated at 1.4, lactate dehydrogenase is slightly elevated at 967, C-reactive protein is normal at 0.5. With chest X ray showing bilateral infiltrates He remains on dexamethasone IV 6 mg daily, multiple vitamins, vitamin C, vitamin D and zinc. Lovenox. He is outside of the window of remdesivir since his presentation is more than 10 days from onset of symptoms however he is status post tocizulumab. 11/14/2020 Patient's clinical condition does not change much from yesterday. He still was some dyspnea. A still on 60 FiO2 of oxygen via high flow nasal cannula Labs look stable Remains on Lovenox, dexamethasone, vitamin C, D and zinc Lactic dehydrogenase is elevated at 976 similar to yesterday and C-reactive protein less than 0.5. Patient will be transferred to the general medical floor per ICU team 11/15/2020 Patient is breathing comfortably today and is FiO2 lower to 50% with a flow rate of 45 L/m. He is doing better sitting up in bed does not look in respiratory distress Vitals stable. No labs. Patient continued on dexamethasone and multiple vitamins as well as prophylactic dose of Lovenox Patient is going to be moved out of the ICU today Objective - Vital Signs Vital signs: Vital Signs Temp 98.3 F 11/15/20 08:00 Pulse 85 11/15/20 08:00 Resp 17 11/15/20 08:00 BP 129/67 11/15/20 08:00 Pulse Ox 91 L 11/15/20 11:38 Intake & Output 11/14/20 11/15/20 11/15/20 18:59 06:59 18:59 Intake Total 100 450 Output Total 600 900 Balance -500 -450 Intake: IV 100 0 NS 100 0 Oral 450 Output: Urine 600 900 Other: Voiding Method Urinal # Voids 0 - Exam GENERAL: The patient is alert and oriented x3, not in any acute distress. Well developed, well nourished. HEENT: Pupils are round and equally reacting to light. EOMI. No scleral icterus. No conjunctival pallor. Normocephalic, atraumatic. No pharyngeal erythema. No thyromegaly. CARDIOVASCULAR: S1 and S2 present. No murmurs, rubs, or gallops. PULMONARY: Chest is clear to auscultation, no wheezing or crackles. ABDOMEN: Soft, nontender, nondistended, normoactive bowel sounds. No palpable organomegaly. MUSCULOSKELETAL: No joint swelling or deformity. EXTREMITIES: No cyanosis, clubbing, or pedal edema. NEUROLOGICAL: Gross neurological examination did not reveal any focal deficits. SKIN: No rashes. no petechiae. - Labs CBC & Chem 7: 11/14/20 03:08 11/14/20 03:08 Labs: Microbiology - Last 24 Hours (Table) 11/12/20 16:55 Gram Stain - Final Sputum Sputum Culture - Final 11/14/20 12:20 Gram Stain - Preliminary Sputum Sputum Culture - Preliminary Assessment and Plan Assessment: Bilateral Covid pneumonia Hypoxic respiratory failure Elevated inflammatory markers Plan: This is a pleasant 60 years old male who presents with covid and pneumonia. Continue with multiple vitamin cocktail. Continue with Lovenox and de xamethasone Continue with high flow oxygen nasal cannula Pulmonary consult Labs and medication were reviewed.. Continue same treatment. Continue with symptomatic treatment. Resume home medication. Monitor lytes and vitals. DVT and GI prophylaxis. Further recommendationsas per clinical course of the patient DVT prophylaxis: Subcutaneous Lovenox GI Prophylaxis: Pepcid Prognosis is guarded
[2020-11-15] MEDS: LORATADINE 10 MG TAB PO SCH (22:28)
[2020-11-16] MEDS: ALBUTEROL HFA INHALER INHALATION SCH ×4 (07:37→19:11)
--- NOTE | 2020-11-16 08:15 | XR ---
EXAMINATION TYPE: XR chest 1V portable DATE OF EXAM: 11/16/2020 COMPARISON: 11/14/2020 HISTORY: Cough TECHNIQUE: Single frontal view of the chest is obtained. FINDINGS: Stable appearing bilateral infiltrates. No interstitial edema or pneumothorax. Heart size normal. Hypertrophic change of the spine. IMPRESSION: Stable bilateral infiltrate.
[2020-11-16] MEDS: FAMOTIDINE 20 MG TAB PO SCH ×2 (10:17→20:11)
[2020-11-16] MEDS: MULTIVITAMINS, THERA 1 EACH TAB PO SCH (10:17)
[2020-11-16] MEDS: ASCORBIC ACID 500 MG TAB PO SCH ×2 (10:17→20:11)
[2020-11-16] MEDS: ZINC SULFATE 220 MG CAP PO SCH (10:17)
[2020-11-16] MEDS: DEXAMETHASONE SOD PHOSPHATE 10 MG/ML 1 ML VIAL IV SCH (10:17)
[2020-11-16] MEDS: CHOLECALCIFEROL 25 MCG (1000 IU) TABLET PO SCH (10:17)
[2020-11-16] MEDS: FLUTICASONE 50MCG/SPRAY NASAL 16GM EA NOSTRIL SCH (10:18)
[2020-11-16] MEDS: ENOXAPARIN 40 MG/0.4 ML SYRINGE SQ SCH (10:18)
[2020-11-16] MEDS: BENZONATATE 100 MG CAP PO PRN (10:22)
--- NOTE | 2020-11-16 17:28 | PN ---
PROGRESS NOTE DATE OF SERVICE: 11/16/2020 REASON FOR FOLLOWUP: Pneumonia. INTERVAL HISTORY: The patient is afebrile. The patient is breathing comfortably. Patient's coughing is decreased in intensity. The patient denies any chest pain. Cough is mostly dry. No nausea, no vomiting. No abdominal pain or diarrhea. PHYSICAL EXAMINATION: Blood pressure 119/73, pulse 102, temperature 97.7. He is 92% on 40% FiO2. GENERAL DESCRIPTION: General description is a middle-aged male up in the bed in no distress. RESPIRATORY SYSTEM: Unlabored breathing. A few crackles. No wheeze. HEART: S1, S2. Regular rate and rhythm. ABDOMEN: Soft. No tenderness. LABS: Hemoglobin is 16.9, white count 10.9. No new labs were done today. DIAGNOSTIC IMPRESSION AND PLAN: Patient with acute COVID-19 pneumonia in this patient who did not qualify for remdesivir did receive a dose of Actemra; has shown clinical improvement. No evidence of any secondary bacterial pneumonia. Sputum culture has been negative. Continue with dexamethasone, Lovenox, zinc and ascorbic acid . Monitor his clinical course closely. MMODL / IJN: [id number] /
--- NOTE | 2020-11-16 17:37 | P.PN ---
Subjective Progress Note Date: 11/16/20 Principal diagnosis: COVID-19 pneumonia This 60-year-old white male patient of Dr. Moreno, with past medical history of DVT and bilateral PEs back in 2009, currently not on any chronic anticoagulation, hip replacement surgery, history of adenoidectomy and back surgery who presented to the emergency department on 11/06/2020 for evaluation of shortness of breath, fever, cough. Patient symptoms were suspicious for COVID-19 infection. His symptom onset was 10 days prior to common into the emergency department. His symptoms started with upper respiratory symptoms, productive cough of mild mucus, as well as dyspnea that has worsened over the last 1-2 days. Patient went to the urgent care on 11/06/2020 and was found to be hypoxic, and he was sent in to the emergency department for further treatment and evaluation for suspicion of COVID-19 pneumonia. Patient states his recently had COVID-19 infection, she had symptoms for 15 days. He denied any nausea, no vomiting, no abdominal pain no headaches. No lower extremity swelling, no chest discomfort. He has no chronic lung condition, he denies history of smoking. No hemoptysis. He reports subjective fever and chills at home. He is not vaccinated for COVID-19. At the urgent care clinic he was given a prednisone taper starting at 40 mg. His chest x-ray showed some coarsening of interstitial markings at the lower lung holt. EEG showed normal sinus rhythm, he is COVID-19 PCR was found to be positive, CBC showed white count of 4.4, hemoglobin of 15, lymphocytes, 0.3, his d-dimer was 1.05, sodium was 133, the rest of the electrolytes were unremarkable, BUN is 15 creatinine 0.65, his ferritin level was 1939, AST was 69, ALT was 55, LDH was 1297, CRP was 6.8, troponin was less than 0.012. Pro-calcitonin level was 0.14. Patient was outside the window for Remdesivir. He was also not a candidate for COVID antibiotic infusion. His been started on Decadron 6 mg daily, he was placed on prophylactic dose Lovenox, COVID-19 vitamin C cloudy vitamin C, vitamin D and zinc. He is currently up to 5 L of oxygen, and his pulse ox is 90-91%. CTA chest was completed showing no evidence of PE, and it showed extensive bilateral pulmonary infiltrate is consistent with pneumonia or RDS. His evaluation on 11/09/2020 patient is seen in the intensive care unit, he is awake and alert, oriented 3, still requiring high flow oxygen for Airvo, at 60 L and FiO2 of 90%, and his pulse ox was around 93-96%, he seems to be breathing comfortably, he states he feels better today, he did have an episode of shortn ess of breath last night. Today's follow-up chest x-ray has been reviewed showing bilateral lower lobe infiltrates, not significantly changed. He received a dose of Actos of his imatinib yesterday 800 mg 1, he remains on IV Decadron 6 mg daily, she is on prophylactic anticoagulation with Lovenox 40 mg daily and COVID-19 vitamins, including vitamin C, D, and zinc vitamins. No crackles at bilateral bases, no wheezing. Occasional cough, nonproductive, no complaints of chest discomfort. He states he slightly nauseous today, but he hasn't had anything to eat, he is requesting some dry saltine crackers. No emesis, no diarrhea, no abdominal discomfort. Today's labs have been reviewed. White blood cell count is 3.8, hemoglobin is 14.3, d-dimer is 0.84, sodium is 134, Celexa lites and renal profile were unremarkable, LDH is 1130, and CRP is 2.9, pro calcitonin level was low at 0.14. He is on 0.9 normal saline 75 ML per hour. In sinus mechanism, blood pressure is stable, currently 130/83. 8/2020, the patient is being seen in follow-up in the intensive care unit. The patient is essentially the same compared to yesterday. No worsening his chest x-ray findings. He remains on high flow oxygen at 60 L with an FiO2 of 90%. Pulse ox is ranging as low as 88% up to 94%. He gets short of breath with limited amount of activity. He had a bowel movement yesterday and took a lot of energy and he became quite short of breath while having a bowel movement. He also is having some dry cough. No significant sputum production. White cell count is at 4.7 with a hemoglobin of 15.1. He is currently wearing 100% nonrebreather facemask and combination to his high flow oxygen. His LDH level from yesterday was down to 1130 and a CRP isn't 2.9 with a d-dimer of 0.8. Chest x-ray shows no significant interval change in the patient has infiltrates in the lung bases bilaterally. No nausea. No vomiting. No diarrhea. IV fluids are running in the form of normal saline at the rate of 75 mL an hour. The patient is also on Lovenox 40 mg subcu daily. He is on vitamins including vitamin C and E and zinc. His chest x-ray is unchanged. On examination she is to have some coarse crackles in lung bases bilaterally. No altered mentation. Appetite is low. 11/11/2020, I'm seeing the patient for a follow-up. He is feeling better today and he is breathing is more comfortable. He remains on high flow oxygen at 6 L with an FiO2 of 90%. On today's evaluation, he is talking comfortably. He has not used the 100% nonrebreather facemask. His pulse ox is around 92%. Chest x-ray shows a stable left lower lobe consolidation and some limited infiltration bilaterally. D-dimer from yesterday was at 0.8. Rest of the labs are all stable with a white cell count of 5.5 and hemoglobin of 15.4. CRP from yesterday was at 2.9 with a LDH level of 1130. He remains on Decadron 6 mg IV every 24 hours. He remains on anticoagulation with Lovenox 40 mg subcu every 24 hours. Eating well. No altered mentation. 11/13/2020, I'm seeing this patient for a follow-up. The patient is currently on high flow oxygen at 6 L and FiO2 of 70%. He is also on and off using the 100% on a beta facemasks. No significant change compared to yesterday. He remains on Decadron 6 mg IV every 24 hours. Remains on Lovenox 4 mg subcu for DVT prophylaxis. No chest pain. No headaches. No altered mentation. His cough is essentially dry. His LDH level and the CRP level were essentially dropping and the patient's chest x-rays remained stable over the past 48 hours. He is tolerating his diet is using incentive spirometer. His doing positional therapy and he is unable to fully pronate himself. Nevertheless, his overall condition is stable. He remains on multivitamins regarding his COVID 19 related pneumonia. 11/14/2020, the patient continues to show signs of improvement. This morning he is on the oxygen flow of 50 L with an FiO2 of 50%. Doing well. Pulse ox is 93%. Afebrile. He remains on Decadron 6 mg IV every 24 hours. No new complaints. Is able to get out of the bed. Is able to sit up on a chair. Occasional dry cough. No significant sputum production. No hemoptysis. No pleurisy. Using incentive spirometer. White cell count is at 10.9 with hemoglobin of 16. BUN is at 26 with a creatinine of 0.8. LDH level is at 976 and the pro calcitonin level is at 0.05. The d-dimer is at 1.4. Remains on Lovenox 40 mg subcu every 24 hours. The patient is seen today 11/16/2020 in follow-up on the regular medical floor. He is currently sitting up in a chair at the bedside. Awake, alert in no acute distress. He remains on AirVo high flow oxygen at 40 L and 40% FiO2. Continues to improve daily. 6 continues to show stable bilateral infiltrates. Sputum culture reveals no growth 2. No new labs today. He remains on Decadron, Lovenox, vitamin supplements. Objective - Vital Signs Vital signs: Vital Signs Temp 97.7 F 11/16/20 14:00 Pulse 102 H 11/16/20 14:00 Resp 16 11/16/20 14:00 BP 118/73 11/16/20 14:00 Pulse Ox 92 L 11/16/20 15:48 Intake & Output 11/15/20 11/16/20 11/16/20 18:59 06:59 18:59 Intake Total 360 472 Output Total 500 1 Balance 360 -500 471 Intake: Oral 360 472 Output: Urine 500 Stool 1 Other: Voiding Method Urinal Urinal Urinal # Voids 3 1 - Exam GENERAL EXAM: Alert, very pleasant, 60-year-old male patient, mild degree of respiratory distress, currently on AirVo high flow oxygen 40 L with an FiO2 of 40%. HEAD: Normocephalic/atraumatic. EYES: Normal reaction of pupils, equal size. Conjunctiva pink, sclera white. NOSE: Clear with pink turbinates. THROAT: No erythema or exudates. NECK: No masses, no JVD, no thyroid enlargement, no adenopathy. CHEST: No chest wall deformity. Symmetrical expansion. LUNGS: Equal air entry with bibasilar crackles, but no wheeze, rhonchi or dullness. CVS: Regular rate and rhythm, normal S1 and S2, no gallops, no murmurs, no rubs ABDOMEN: Soft, nontender. No hepatosplenomegaly, normal bowel sounds, no guarding or rigidity. EXTREMITIES: No clubbing, no edema, no cyanosis, 2+ pulses and upper and lower extremities. MUSCULOSKELETAL: Muscle strength and tone normal. SPINE: No scoliosis or deformity SKIN: No rashes CENTRAL NERVOUS SYSTEM: No focal deficits, tone is normal in all 4 extremities. PSYCHIATRIC: Alert and oriented -3. Appropriate affect. Intact judgment and insight. - Labs CBC & Chem 7: 11/14/20 03:08 11/14/20 03:08 Labs: Microbiology - Last 24 Hours (Table) 11/14/20 12:20 Gram Stain - Final Sputum Sputum Culture - Final Assessment and Plan Assessment: 1 Acute hypoxic respiratory failure related to acute COVID-19 pneumonia, outside the window for Remdesivir. Chronic candidate for COVID-19 antibiotic infusion. Onset of symptoms was greater than 10 days prior to presentation. Patient had worsening of his dyspnea and hypoxia, he is status post post-of tocilizumab infusion on 11/08/2020 clinically, the patient is unchanged over the past 48 hours. He remains on AirVo high flow oxygen at 40 L with an FiO2 of 40%. Oxygenation is stable for now. We'll continue weaning the FiO2 as tolerated. 2 Myalgias, fever, cough, dyspnea related to the above 3 Previous history of DVT and bilateral PEs in 2009, currently not on chronic anticoagulation 4 History of kidney stones 5 Osteoarthritis . History of hip surgery 6 Nonsmoker Plan: The patient was seen and evaluated by Dr. Marquez X-ray remains stable Improving, on 40 L and 40% FiO2 via AirVo high flow oxygen Continue Lovenox, Decadron, vitamin supplements Titrate the FiO2 as tolerated Increase his activity as tolerated We will continue to follow I, the cosigning physician, performed a history & physical examination of the patient. Lungs sounds crackles in the bilateral posterior bases. Maintaining good O2 saturations in the 90s on 40 L and 40% FiO2 via AirVo high flow oxygen. I discussed the assessment and plan of care with my nurse practitioner, Kavita Elaine. I attest to the above note as dictated by her.
[2020-11-16] MEDS: LORATADINE 10 MG TAB PO SCH (20:11)
[2020-11-16] MEDS: SODIUM CHLORIDE 0.9% 1,000 ML IV SCH (20:25)
--- NOTE | 2020-11-16 22:20 | P.PN ---
Subjective This is a pleasant 60 years old male with multiple medical problems presents with respiratory distress found to have bilateral covid Pneumonia currently he remains in the ICU he needs 60% high flow oxygen via nasal cannula. There's no vitals are stable and he is afebrile. Labs look stable, d-dimer mildly elevated at 1.4, lactate dehydrogenase is slightly elevated at 967, C-reactive protein is normal at 0.5. With chest X ray showing bilateral infiltrates He remains on dexamethasone IV 6 mg daily, multiple vitamins, vitamin C, vitamin D and zinc. Lovenox. He is outside of the window of remdesivir since his presentation is more than 10 days from onset of symptoms however he is status post tocizulumab. 11/14/2020 Patient's clinical condition does not change much from yesterday. He still was some dyspnea. A still on 60 FiO2 of oxygen via high flow nasal cannula Labs look stable Remains on Lovenox, dexamethasone, vitamin C, D and zinc Lactic dehydrogenase is elevated at 976 similar to yesterday and C-reactive protein less than 0.5. Patient will be transferred to the general medical floor per ICU team 11/15/2020 Patient is breathing comfortably today and is FiO2 lower to 50% with a flow rate of 45 L/m. He is doing better sitting up in bed does not look in respiratory distress Vitals stable. No labs. Patient continued on dexamethasone and multiple vitamins as well as prophylactic dose of Lovenox Patient is going to be moved out of the ICU today 11/16/2020 Patient's clinical condition is improving, his breathing is easier and his oxygen requirement lower today to 10 L/m with FiO2 of 40% Other than his chest x-ray stable Base of the same treatment of dexamethasone and vitamins and Lovenox Repeat labs tomorrow morning Objective - Vital Signs Vital signs: Vital Signs Temp 97.6 F 11/16/20 08:00 Pulse 83 11/16/20 08:00 Resp 16 11/16/20 08:00 BP 129/74 11/16/20 08:00 Pulse Ox 95 11/16/20 08:00 Intake & Output 11/15/20 11/16/20 11/16/20 18:59 06:59 18:59 Intake Total 360 236 Output Total 500 Balance 360 -500 236 Intake: Oral 360 236 Output: Urine 500 Other: Voiding Method Urinal Urinal # Voids 3 1 - Exam GENERAL: The patient is alert and oriented x3, not in any acute distress. Well developed, well nourished. HEENT: Pupils are round and equally reacting to light. EOMI. No scleral icterus. No conjunctival pallor. Normocephalic, atraumatic. No pharyngeal erythema. No thyromegaly. CARDIOVASCULAR: S1 and S2 present. No murmurs, rubs, or gallops. PULMONARY: Chest is clear to auscultation, no wheezing or crackles. ABDOMEN: Soft, nontender, nondistended, normoactive bowel sounds. No palpable organomegaly. MUSCULOSKELETAL: No joint swelling or deformity. EXTREMITIES: No cyanosis, clubbing, or pedal edema. NEUROLOGICAL: Gross neurological examination did not reveal any focal deficits. SKIN: No rashes. no petechiae. - Labs CBC & Chem 7: 11/14/20 03:08 11/14/20 03:08 Labs: Microbiology - Last 24 Hours (Table) 11/14/20 12:20 Gram Stain - Final Sputum Sputum Culture - Final 11/12/20 16:55 Gram Stain - Final Sputum Sputum Culture - Final Assessment and Plan Assessment: Bilateral Covid pneumonia Hypoxic respiratory failure Elevated inflammatory markers Plan: This is a pleasant 60 years old male who presents with covid and pneumonia. Continue with multiple vitamin cocktail. Continue with Lovenox and dexamethasone Continue with high flow oxygen nasal cannula Pulmonary consult Labs and medication were reviewed.. Continue same treatment. Continue with symptomatic treatment. Resume home medication. Monitor lytes and vitals. DVT and GI prophylaxis. Further recommendationsas per clinical course of the patient DVT prophylaxis: Subcutaneous Lovenox GI Prophylaxis: Pepcid Prognosis is guarded
[2020-11-17] MEDS: FAMOTIDINE 20 MG TAB PO SCH ×2 (08:25→20:16)
[2020-11-17] MEDS: ASCORBIC ACID 500 MG TAB PO SCH ×2 (08:25→20:16)
[2020-11-17] MEDS: DEXAMETHASONE SOD PHOSPHATE 10 MG/ML 1 ML VIAL IV SCH (08:25)
[2020-11-17] MEDS: ZINC SULFATE 220 MG CAP PO SCH (08:25)
[2020-11-17] MEDS: CHOLECALCIFEROL 25 MCG (1000 IU) TABLET PO SCH (08:25)
[2020-11-17] MEDS: ENOXAPARIN 40 MG/0.4 ML SYRINGE SQ SCH (08:25)
[2020-11-17] MEDS: FLUTICASONE 50MCG/SPRAY NASAL 16GM EA NOSTRIL SCH (08:26)
[2020-11-17 08:34] LABS: African American GFR (CKD) >90 (>60 ml/min/1.73 sqM); Anion Gap 9 mmol/L; Blood Urea Nitrogen 29 mg/dL (9-20); C Reactive Protein <0.5 mg/dL (<1.0); Calcium 9.3 mg/dL (8.4-10.2); Carbon Dioxide 24 mmol/L (22-30); Chloride 101 mmol/L (98-107); Glucose 140 mg/dL (74-99); LDH 690 U/L (313-618); Non-African American GFR(CKD) >90 (>60 ml/min/1.73 sqM); Potassium 4.4 mmol/L (3.5-5.1); Sodium 134 mmol/L (137-145)
[2020-11-17] MEDS: ALBUTEROL HFA INHALER INHALATION SCH ×4 (09:48→19:29)
[2020-11-17] MEDS: MULTIVITAMINS, THERA 1 EACH TAB PO SCH (11:34)
[2020-11-17] MEDS: SODIUM CHLORIDE 0.9% 1,000 ML IV SCH (11:36)
[2020-11-17 12:15] LABS: Basophils # (A) 0.07 X 10*3/uL (0.00-0.10); Basophils % (A) 0.5 %; Eosinophils # (A) 0 X 10*3/uL (0.04-0.35); Eosinophils % (A) 0 %; HCT 49.8 % (39.6-50.0); HGB 16.3 g/dL (13.0-17.0); Lymphocytes # (A) 0.89 X 10*3/uL (0.90-5.00); Lymphocytes % (A) 6.3 %; MCH 27.4 pg (27.0-32.0); MCHC 32.7 g/dL (32.0-37.0); MCV 83.8 fL (80.0-97.0); Mean Platelet Volume 11.3 fL (9.5-12.2); Monocytes # (A) 1.01 X 10*3/uL (0.20-1.00); Monocytes % (A) 7.1 %; Neutrophils # (A) 11.68 X 10*3/uL (1.80-7.70); Neutrophils % (A) 82.1 %; Platelet Count 224 X 10*3/uL (140-440); RBC 5.94 X 10*6/uL (4.40-5.60); RDW 15.6 % (11.5-14.5); WBC 14.22 X 10*3/uL (4.50-10.00)
--- NOTE | 2020-11-17 13:15 | P.PN ---
Subjective Progress Note Date: 11/17/20 Principal diagnosis: COVID-19 pneumonia This 60-year-old white male patient of Dr. Moreno, with past medical history of DVT and bilateral PEs back in 2009, currently not on any chronic anticoagulation, hip replacement surgery, history of adenoidectomy and back surgery who presented to the emergency department on 11/06/2020 for evaluation of shortness of breath, fever, cough. Patient symptoms were suspicious for COVID-19 infection. His symptom onset was 10 days prior to common into the emergency department. His symptoms started with upper respiratory symptoms, productive cough of mild mucus, as well as dyspnea that has worsened over the last 1-2 days. Patient went to the urgent care on 11/06/2020 and was found to be hypoxic, and he was sent in to the emergency department for further treatment and evaluation for suspicion of COVID-19 pneumonia. Patient states his recently had COVID-19 infection, she had symptoms for 15 days. He denied any nausea, no vomiting, no abdominal pain no headaches. No lower extremity swelling, no chest discomfort. He has no chronic lung condition, he denies history of smoking. No hemoptysis. He reports subjective fever and chills at home. He is not vaccinated for COVID-19. At the urgent care clinic he was given a prednisone taper starting at 40 mg. His chest x-ray showed some coarsening of interstitial markings at the lower lung holt. EEG showed normal sinus rhythm, he is COVID-19 PCR was found to be positive, CBC showed white count of 4.4, hemoglobin of 15, lymphocytes, 0.3, his d-dimer was 1.05, sodium was 133, the rest of the electrolytes were unremarkable, BUN is 15 creatinine 0.65, his ferritin level was 1939, AST was 69, ALT was 55, LDH was 1297, CRP was 6.8, troponin was less than 0.012. Pro-calcitonin level was 0.14. Patient was outside the window for Remdesivir. He was also not a candidate for COVID antibiotic infusion. His been started on Decadron 6 mg daily, he was placed on prophylactic dose Lovenox, COVID-19 vitamin C cloudy vitamin C, vitamin D and zinc. He is currently up to 5 L of oxygen, and his pulse ox is 90-91%. CTA chest was completed showing no evidence of PE, and it showed extensive bilateral pulmonary infiltrate is consistent with pneumonia or RDS. His evaluation on 11/09/2020 patient is seen in the intensive care unit, he is awake and alert, oriented 3, still requiring high flow oxygen for Airvo, at 60 L and FiO2 of 90%, and his pulse ox was around 93-96%, he seems to be breathing comfortably, he states he feels better today, he did have an episode of shortn ess of breath last night. Today's follow-up chest x-ray has been reviewed showing bilateral lower lobe infiltrates, not significantly changed. He received a dose of Actos of his imatinib yesterday 800 mg 1, he remains on IV Decadron 6 mg daily, she is on prophylactic anticoagulation with Lovenox 40 mg daily and COVID-19 vitamins, including vitamin C, D, and zinc vitamins. No crackles at bilateral bases, no wheezing. Occasional cough, nonproductive, no complaints of chest discomfort. He states he slightly nauseous today, but he hasn't had anything to eat, he is requesting some dry saltine crackers. No emesis, no diarrhea, no abdominal discomfort. Today's labs have been reviewed. White blood cell count is 3.8, hemoglobin is 14.3, d-dimer is 0.84, sodium is 134, Celexa lites and renal profile were unremarkable, LDH is 1130, and CRP is 2.9, pro calcitonin level was low at 0.14. He is on 0.9 normal saline 75 ML per hour. In sinus mechanism, blood pressure is stable, currently 130/83. 8/2020, the patient is being seen in follow-up in the intensive care unit. The patient is essentially the same compared to yesterday. No worsening his chest x-ray findings. He remains on high flow oxygen at 60 L with an FiO2 of 90%. Pulse ox is ranging as low as 88% up to 94%. He gets short of breath with limited amount of activity. He had a bowel movement yesterday and took a lot of energy and he became quite short of breath while having a bowel movement. He also is having some dry cough. No significant sputum production. White cell count is at 4.7 with a hemoglobin of 15.1. He is currently wearing 100% nonrebreather facemask and combination to his high flow oxygen. His LDH level from yesterday was down to 1130 and a CRP isn't 2.9 with a d-dimer of 0.8. Chest x-ray shows no significant interval change in the patient has infiltrates in the lung bases bilaterally. No nausea. No vomiting. No diarrhea. IV fluids are running in the form of normal saline at the rate of 75 mL an hour. The patient is also on Lovenox 40 mg subcu daily. He is on vitamins including vitamin C and E and zinc. His chest x-ray is unchanged. On examination she is to have some coarse crackles in lung bases bilaterally. No altered mentation. Appetite is low. 11/11/2020, I'm seeing the patient for a follow-up. He is feeling better today and he is breathing is more comfortable. He remains on high flow oxygen at 6 L with an FiO2 of 90%. On today's evaluation, he is talking comfortably. He has not used the 100% nonrebreather facemask. His pulse ox is around 92%. Chest x-ray shows a stable left lower lobe consolidation and some limited infiltration bilaterally. D-dimer from yesterday was at 0.8. Rest of the labs are all stable with a white cell count of 5.5 and hemoglobin of 15.4. CRP from yesterday was at 2.9 with a LDH level of 1130. He remains on Decadron 6 mg IV every 24 hours. He remains on anticoagulation with Lovenox 40 mg subcu every 24 hours. Eating well. No altered mentation. 11/13/2020, I'm seeing this patient for a follow-up. The patient is currently on high flow oxygen at 6 L and FiO2 of 70%. He is also on and off using the 100% on a beta facemasks. No significant change compared to yesterday. He remains on Decadron 6 mg IV every 24 hours. Remains on Lovenox 4 mg subcu for DVT prophylaxis. No chest pain. No headaches. No altered mentation. His cough is essentially dry. His LDH level and the CRP level were essentially dropping and the patient's chest x-rays remained stable over the past 48 hours. He is tolerating his diet is using incentive spirometer. His doing positional therapy and he is unable to fully pronate himself. Nevertheless, his overall condition is stable. He remains on multivitamins regarding his COVID 19 related pneumonia. 11/14/2020, the patient continues to show signs of improvement. This morning he is on the oxygen flow of 50 L with an FiO2 of 50%. Doing well. Pulse ox is 93%. Afebrile. He remains on Decadron 6 mg IV every 24 hours. No new complaints. Is able to get out of the bed. Is able to sit up on a chair. Occasional dry cough. No significant sputum production. No hemoptysis. No pleurisy. Using incentive spirometer. White cell count is at 10.9 with hemoglobin of 16. BUN is at 26 with a creatinine of 0.8. LDH level is at 976 and the pro calcitonin level is at 0.05. The d-dimer is at 1.4. Remains on Lovenox 40 mg subcu every 24 hours. The patient is seen today 11/16/2020 in follow-up on the regular medical floor. He is currently sitting up in a chair at the bedside. Awake, alert in no acute distress. He remains on AirVo high flow oxygen at 40 L and 40% FiO2. Continues to improve daily. 6 continues to show stable bilateral infiltrates. Sputum culture reveals no growth 2. No new labs today. He remains on Decadron, Lovenox, vitamin supplements. The patient is seen today 11/17/2020 in follow-up on the regular medical floor. He is awake and alert in no acute distress. Maintaining O2 saturations in the 90s on AirVo high flow oxygen at 40 L and 40% FiO2. White count 14.2. Hemoglobin 16.3. Lymphocytes 0.89. Sodium 134. Potassium 4.4. Creatinine 0.70. LDH 690. He remains on Decadron, Lovenox, vitamin supplements. Objective - Vital Signs Vital signs: Vital Signs Temp 97.8 F 11/17/20 10:00 Pulse 105 H 11/17/20 10:00 Resp 16 11/17/20 10:00 BP 124/68 11/17/20 10:00 Pulse Ox 88 L 11/17/20 10:00 Intake & Output 11/16/20 11/17/20 11/17/20 18:59 06:59 18:59 Intake Total 708 296 Output Total 301 780 Balance 407 -780 296 Intake: Oral 708 296 Output: Urine 300 780 Stool 1 Other: Voiding Method Urinal Urinal # Bowel Movements 0 - Exam GENERAL EXAM: Alert, very pleasant, 60-year-old male patient, mild degree of respiratory distress, currently on AirVo high flow oxygen 40 L with an FiO2 of 40%. HEAD: Normocephalic/atraumatic. EYES: Normal reaction of pupils, equal size. Conjunctiva pink, sclera white. NOSE: Clear with pink turbinates. THROAT: No erythema or exudates. NECK: No masses, no JVD, no thyroid enlargement, no adenopathy. CHEST: No chest wall deformity. Symmetrical expansion. LUNGS: Equal air entry with bibasilar crackles, but no wheeze, rhonchi or dullness. CVS: Regular rate and rhythm, normal S1 and S2, no gallops, no murmurs, no rubs ABDOMEN: Soft, nontender. No hepatosplenomegaly, normal bowel sounds, no guarding or rigidity. EXTREMITIES: No clubbing, no edema, no cyanosis, 2+ pulses and upper and lower extremities. MUSCULOSKELETAL: Muscle strength and tone normal. SPINE: No scoliosis or deformity SKIN: No rashes CENTRAL NERVOUS SYSTEM: No focal deficits, tone is normal in all 4 extremities. PSYCHIATRIC: Alert and oriented -3. Appropriate affect. Intact judgment and insight. - Labs CBC & Chem 7: 11/17/20 08:04 11/17/20 08:01 Labs: Abnormal Lab Results - Last 24 Hours (Table) 11/17/20 11/17/20 Range/Units 08:01 08:04 WBC 14.22 H (4.50-10.00) X 10*3/uL RBC 5.94 H (4.40-5.60) X 10*6/uL RDW 15.6 H (11.5-14.5) % Absolute Nucleated RBC 0.04 H (0.00-0.00) X 10*3/uL Immature Gran # 0.57 H (0.00-0.04) X 10*3/uL Neutrophils # 11.68 H (1.80-7.70) X 10*3/uL Lymphocytes # 0.89 L (0.90-5.00) X 10*3/uL Monocytes # 1.01 H (0.20-1.00) X 10*3/uL Eosinophils # 0 L (0.04-0.35) X 10*3/uL NRBC/100 WBC Diff 0.3 H (0.0-0.0) /100 WBCS Sodium 134 L (137-145) mmol/L BUN 29 H (9-20) mg/dL Glucose 140 H (74-99) mg/dL Lactate Dehydrogenase 690 H (313-618) U/L Microbiology - Last 24 Hours (Table) 11/14/20 12:20 Gram Stain - Final Sputum Sputum Culture - Final Assessment and Plan Assessment: 1 Acute hypoxic respiratory failure related to acute COVID-19 pneumonia, outside the window for Remdesivir. Patient had worsening of his dyspnea and hypoxia, he is status post post-of tocilizumab infusion on 11/08/2020 clinically, the patient is unchanged over the past 48 hours. He remains on AirVo high flow oxygen at 40 L with an FiO2 of 40%. Oxygenation is stable for now. We'll continue weaning the FiO2 as tolerated. 2 Myalgias, fever, cough, dyspnea related to the above 3 Previous history of DVT and bilateral PEs in 2009, currently not on chronic anticoagulation 4 History of kidney stones 5 Osteoarthritis . History of hip surgery 6 Nonsmoker Plan: The patient was seen and evaluated by Dr. Marquez Remains on 40 L and 40% FiO2 via AirVo high flow oxygen Continue Lovenox, Decadron, vitamin supplements Titrate the FiO2 as tolerated Increase his activity as tolerated We will continue to follow I, the cosigning physician, performed a history & physical examination of the patient. Lungs sounds crackles in the bilateral posterior bases. Maintaining go od O2 saturations in the 90s on 40 L and 40% FiO2 via AirVo high flow oxygen. I discussed the assessment and plan of care with my nurse practitioner, Kavita Elaine. I attest to the above note as dictated by her.
--- NOTE | 2020-11-17 16:14 | PN ---
PROGRESS NOTE DATE OF SERVICE: 11/17/2020 REASON FOR FOLLOWUP: Covid-19 pneumonia. INTERVAL HISTORY: The patient is currently afebrile. The patient is feeling better, breathing comfortably. The patient's cough has decreased in intensity. No chest pain. No abdominal pain or diarrhea. PHYSICAL EXAMINATION: Blood pressure 133/81 with a pulse of 93, temperature 97.6. He is 92% on high- flow oxygen. GENERAL DESCRIPTION: General description is a middle-aged male up in the bed in no distress. RESPIRATORY SYSTEM: Unlabored breathing. Decreased intensity of breath sounds. Occasional crackle. No wheeze. HEART: S1, S2. Regular rate and rhythm. ABDOMEN: Soft. No tenderness. LABS: Hemoglobin is 16, white 14.2, BUN of 29, creatinine 0.70. DIAGNOSTIC IMPRESSION AND PLAN: 1. Patient with acute COVID-19 pneumonia in this patient who did not qualify for remdesivir has received Actemra. Currently no evidence of any secondary bacterial infection. Patient is covered with Decadron, Lovenox, zinc and ascorbic acid; to continue. 2. Patient with elevated white count; more likely steroid-related. We will monitor closely. MMODL / IJN: [id number] /
--- NOTE | 2020-11-17 16:38 | P.PN ---
Subjective This is a pleasant 60 years old male with multiple medical problems presents with respiratory distress found to have bilateral covid Pneumonia currently he remains in the ICU he needs 60% high flow oxygen via nasal cannula. There's no vitals are stable and he is afebrile. Labs look stable, d-dimer mildly elevated at 1.4, lactate dehydrogenase is slightly elevated at 967, C-reactive protein is normal at 0.5. With chest X ray showing bilateral infiltrates He remains on dexamethasone IV 6 mg daily, multiple vitamins, vitamin C, vitamin D and zinc. Lovenox. He is outside of the window of remdesivir since his presentation is more than 10 days from onset of symptoms however he is status post tocizulumab. 11/14/2020 Patient's clinical condition does not change much from yesterday. He still was some dyspnea. A still on 60 FiO2 of oxygen via high flow nasal cannula Labs look stable Remains on Lovenox, dexamethasone, vitamin C, D and zinc Lactic dehydrogenase is elevated at 976 similar to yesterday and C-reactive protein less than 0.5. Patient will be transferred to the general medical floor per ICU team 11/15/2020 Patient is breathing comfortably today and is FiO2 lower to 50% with a flow rate of 45 L/m. He is doing better sitting up in bed does not look in respiratory distress Vitals stable. No labs. Patient continued on dexamethasone and multiple vitamins as well as prophylactic dose of Lovenox Patient is going to be moved out of the ICU today 11/16/2020 Patient's clinical condition is improving, his breathing is easier and his oxygen requirement lower today to 10 L/m with FiO2 of 40% Other than his chest x-ray stable Base of the same treatment of dexamethasone and vitamins and Lovenox Repeat labs tomorrow morning 11/17/2020 patient improving gradually and progressively but slowly. He is breathing quietly, he is on oxygen via high flow nasal cannula at 2 L with FiO2 of 40% He has mild leukocytosis and LDH is trending down to 690. Reactive protein remains negative less than 0.5 Remains on multiple vitamins, dexamethasone and Lovenox Objective - Vital Signs Vital signs: Vital Signs Temp 97.8 F 11/17/20 10:00 Pulse 105 H 11/17/20 10:00 Resp 16 11/17/20 10:00 BP 124/68 11/17/20 10:00 Pulse Ox 88 L 11/17/20 10:00 Intake & Output 11/16/20 11/17/20 11/17/20 18:59 06:59 18:59 Intake Total 708 296 Output Total 301 780 Balance 407 -780 296 Intake: Oral 708 296 Output: Urine 300 780 Stool 1 Other: Voiding Method Urinal Urinal # Bowel Movements 0 - Exam GENERAL: The patient is alert and oriented x3, not in any acute distress. Well developed, well nourished. HEENT: Pupils are round and equally reacting to light. EOMI. No scleral icterus. No conjunctival pallor. Normocephalic, atraumatic. No pharyngeal erythema. No t hyromegaly. CARDIOVASCULAR: S1 and S2 present. No murmurs, rubs, or gallops. PULMONARY: Chest is clear to auscultation, no wheezing or crackles. ABDOMEN: Soft, nontender, nondistended, normoactive bowel sounds. No palpable organomegaly. MUSCULOSKELETAL: No joint swelling or deformity. EXTREMITIES: No cyanosis, clubbing, or pedal edema. NEUROLOGICAL: Gross neurological examination did not reveal any focal deficits. SKIN: No rashes. no petechiae. - Labs CBC & Chem 7: 11/17/20 08:04 11/17/20 08:01 Labs: Abnormal Lab Results - Last 24 Hours (Table) 11/17/20 11/17/20 Range/Units 08:01 08:04 WBC 14.22 H (4.50-10.00) X 10*3/uL RBC 5.94 H (4.40-5.60) X 10*6/uL RDW 15.6 H (11.5-14.5) % Absolute Nucleated RBC 0.04 H (0.00-0.00) X 10*3/uL Immature Gran # 0.57 H (0.00-0.04) X 10*3/uL Neutrophils # 11.68 H (1.80-7.70) X 10*3/uL Lymphocytes # 0.89 L (0.90-5.00) X 10*3/uL Monocytes # 1.01 H (0.20-1.00) X 10*3/uL Eosinophils # 0 L (0.04-0.35) X 10*3/uL NRBC/100 WBC Diff 0.3 H (0.0-0.0) /100 WBCS Sodium 134 L (137-145) mmol/L BUN 29 H (9-20) mg/dL Glucose 140 H (74-99) mg/dL Lactate Dehydrogenase 690 H (313-618) U/L Microbiology - Last 24 Hours (Table) 11/14/20 12:20 Gram Stain - Final Sputum Sputum Culture - Final Assessment and Plan Assessment: Bilateral Covid pneumonia Hypoxic respiratory failure Elevated inflammatory markers Plan: This is a pleasant 60 years old male who presents with covid and pneumonia. Continue with multiple vitamin cocktail. Continue with Lovenox and dexamethasone Continue with high flow oxygen nasal cannula Pulmonary consult Labs and medication were reviewed.. Continue same treatment. Continue with symptomatic treatment. Resume home medication. Monitor lytes and vitals. DVT and GI prophylaxis. Further recommendationsas per clinical course of the patient DVT prophylaxis: Subcutaneous Lovenox GI Prophylaxis: Pepcid Prognosis is guarded
[2020-11-17] MEDS: LORATADINE 10 MG TAB PO SCH (20:16)
[2020-11-18] MEDS: FLUTICASONE 50MCG/SPRAY NASAL 16GM EA NOSTRIL SCH (08:00)
[2020-11-18] MEDS: CHOLECALCIFEROL 25 MCG (1000 IU) TABLET PO SCH (08:00)
[2020-11-18] MEDS: DEXAMETHASONE SOD PHOSPHATE 10 MG/ML 1 ML VIAL IV SCH (08:00)
[2020-11-18] MEDS: ZINC SULFATE 220 MG CAP PO SCH (08:00)
[2020-11-18] MEDS: ENOXAPARIN 40 MG/0.4 ML SYRINGE SQ SCH (08:00)
[2020-11-18] MEDS: ASCORBIC ACID 500 MG TAB PO SCH ×2 (08:00→20:42)
[2020-11-18] MEDS: FAMOTIDINE 20 MG TAB PO SCH ×2 (08:00→20:43)
[2020-11-18] MEDS: SODIUM CHLORIDE 0.9% 1,000 ML IV SCH (08:01)
[2020-11-18] MEDS: ALBUTEROL HFA INHALER INHALATION SCH ×4 (08:29→18:58)
--- NOTE | 2020-11-18 11:13 | P.PN ---
Subjective Progress Note Date: 11/18/20 COVID-19 pneumonia This 60-year-old white male patient of Dr. Moreno, with past medical history of DVT and bilateral PEs back in 2009, currently not on any chronic anticoagulation, hip replacement surgery, history of adenoidectomy and back surgery who presented to the emergency department on 11/06/2020 for evaluation of shortness of breath, fever, cough. Patient symptoms were suspicious for COVID-19 infection. His symptom onset was 10 days prior to common into the emergency department. His symptoms started with upper respiratory symptoms, productive cough of mild mucus, as well as dyspnea that has worsened over the last 1-2 days. Patient went to the urgent care on 11/06/2020 and was found to be hypoxic, and he was sent in to the emergency department for further treatment and evaluation for suspicion of COVID-19 pneumonia. Patient states his recently had COVID-19 infection, she had symptoms for 15 days. He denied any nausea, no vomiting, no abdominal pain no headaches. No lower extremity swelling, no chest discomfort. He has no chronic lung condition, he denies history of smoking. No hemoptysis. He reports subjective fever and chills at home. He is not vaccinated for COVID-19. At the urgent care clinic he was given a prednisone taper starting at 40 mg. His chest x-ray showed some coarsening of interstitial markings at the lower lung holt. EEG showed normal sinus rhythm, he is COVID-19 PCR was found to be positive, CBC showed white count of 4.4, hemoglobin of 15, lymphocytes, 0.3, his d-dimer was 1.05, sodium was 133, the rest of the electrolytes were unremarkable, BUN is 15 creatinine 0.65, his ferritin level was 1939, AST was 69, ALT was 55, LDH was 1297, CRP was 6.8, troponin was less than 0.012. Pro-calcitonin level was 0.14. Patient was outside the window for Remdesivir. He was also not a candidate for COVID antibiotic infusion. His been started on Decadron 6 mg daily, he was placed on prophylactic dose Lovenox, COVID-19 vitamin C cloudy vitamin C, vitamin D and zinc. He is currently up to 5 L of oxygen, and his pulse ox is 90-91%. CTA ch est was completed showing no evidence of PE, and it showed extensive bilateral pulmonary infiltrate is consistent with pneumonia or RDS. His evaluation on 11/09/2020 patient is seen in the intensive care unit, he is awake and alert, oriented 3, still requiring high flow oxygen for Airvo, at 60 L and FiO2 of 90%, and his pulse ox was around 93-96%, he seems to be breathing comfortably, he states he feels better today, he did have an episode of shortness of breath last night. Today's follow-up chest x-ray has been reviewed showing bilateral lower lobe infiltrates, not significantly changed. He received a dose of Actos of his imatinib yesterday 800 mg 1, he remains on IV Decadron 6 mg daily, she is on prophylactic anticoagulation with Lovenox 40 mg daily and COVID-19 vitamins, including vitamin C, D, and zinc vitamins. No crackles at bilateral bases, no wheezing. Occasional cough, nonproductive, no complaints of chest discomfort. He states he slightly nauseous today, but he hasn't had anything to eat, he is requesting some dry saltine crackers. No emesis, no diarrhea, no abdominal discomfort. Today's labs have been reviewed. White blood cell count is 3.8, hemoglobin is 14.3, d-dimer is 0.84, sodium is 134, Celexa lites and renal profile were unremarkable, LDH is 1130, and CRP is 2.9, pro calcitonin level was low at 0.14. He is on 0.9 normal saline 75 ML per hour. In sinus mechanism, blood pressure is stable, currently 130/83. 2020, the patient is being seen in follow-up in the intensive care unit. The patient is essentially the same compared to yesterday. No worsening his chest x-ray findings. He remains on high flow oxygen at 60 L with an FiO2 of 90%. Pulse ox is ranging as low as 88% up to 94%. He gets short of breath with limited amount of activity. He had a bowel movement yesterday and took a lot of energy and he became quite short of breath while having a bowel movement. He also is having some dry cough. No significant sputum production. White cell count is at 4.7 with a hemoglobin of 15.1. He is currently wearing 100% nonrebreather facemask and combination to his high flow oxygen. His LDH level from yesterday was down to 1130 and a CRP isn't 2.9 with a d-dimer of 0.8. Chest x-ray shows no significant interval change in the patient has infiltrates in the lung bases bilaterally. No nausea. No vomiting. No diarrhea. IV fl uids are running in the form of normal saline at the rate of 75 mL an hour. The patient is also on Lovenox 40 mg subcu daily. He is on vitamins including vitamin C and E and zinc. His chest x-ray is unchanged. On examination she is to have some coarse crackles in lung bases bilaterally. No altered mentation. Appetite is low. 11/11/2020, I'm seeing the patient for a follow-up. He is feeling better today and he is breathing is more comfortable. He remains on high flow oxygen at 6 L with an FiO2 of 90%. On today's evaluation, he is talking comfortably. He has not used the 100% nonrebreather facemask. His pulse ox is around 92%. Chest x- ray shows a stable left lower lobe consolidation and some limited infiltration bilaterally. D-dimer from yesterday was at 0.8. Rest of the labs are all stable with a white cell count of 5.5 and hemoglobin of 15.4. CRP from yesterday was at 2.9 with a LDH level of 1130. He remains on Decadron 6 mg IV every 24 hours. He remains on anticoagulation with Lovenox 40 mg subcu every 24 hours. Eating well. No altered mentation. 11/13/2020, I'm seeing this patient for a follow-up. The patient is currently on high flow oxygen at 6 L and FiO2 of 70%. He is also on and off using the 100% on a beta facemasks. No significant change compared to yesterday. He remains on Decadron 6 mg IV every 24 hours. Remains on Lovenox 4 mg subcu for DVT prophylaxis. No chest pain. No headaches. No altered mentation. His cough is essentially dry. His LDH level and the CRP level were essentially dropping and the patient's chest x-rays remained stable over the past 48 hours. He is tolerating his diet is using incentive spirometer. His doing positional therapy and he is unable to fully pronate himself. Nevertheless, his overall condition is stable. He remains on multivitamins regarding his COVID 19 related pneumonia. 11/14/2020, the patient continues to show signs of improvement. This morning he is on the oxygen flow of 50 L with an FiO2 of 50%. Doing well. Pulse ox is 93%. Afebrile. He remains on Decadron 6 mg IV every 24 hours. No new complaints. Is able to get out of the bed. Is able to sit up on a chair. Occasional dry cough. No significant sputum production. No hemoptysis. No pleurisy. Using incentive spirometer. White cell count is at 10.9 with hemoglobin of 16. BUN is at 26 with a creatinine of 0.8. LDH level is at 976 and the pro calcitonin level is at 0.05. The d-dimer is at 1.4. Remains on Lovenox 40 mg subcu every 24 hours. The patient is seen today 11/16/2020 in follow-up on the regular medical floor. He is currently sitting up in a chair at the bedside. Awake, alert in no acute distress. He remains on AirVo high flow oxygen at 40 L and 40% FiO2. Continues to improve daily. 6 continues to show stable bilateral infiltrates. Sputum culture reveals no growth 2. No new labs today. He remains on Decadron, Lovenox, vitamin supplements. The patient is seen today 11/17/2020 in follow-up on the regular medical floor. He is awake and alert in no acute distress. Maintaining O2 saturations in the 90s on AirVo high flow oxygen at 40 L and 40% FiO2. White count 14.2. Hemoglobin 16.3. Lymphocytes 0.89. Sodium 134. Potassium 4.4. Creatinine 0.70. LDH 690. He remains on Decadron, Lovenox, vitamin supplements. 11/18 2020, the patient remains on 40 L of oxygen with an FiO2 of 40%. Pulse ox is 91%. No new complaints. Unable to wean it down further because of desaturations. We'll try to go down to a lesser flow. Remains on Decadron. Remains on Lovenox. Remains on multivitamins. LDH is in the 600s range without any significant elevation. He is fatigued and tired. Clinically however stable. No worsening shortness of breath. No chest pain. No angina. No palp itation. No other significant events Objective - Vital Signs Vital signs: Vital Signs Temp 97.7 F 11/18/20 10:00 Pulse 93 11/18/20 10:00 Resp 20 11/18/20 10:00 BP 134/71 11/18/20 10:00 Pulse Ox 92 L 11/18/20 08:30 Intake & Output 11/17/20 11/18/20 11/18/20 18:59 06:59 18:59 Intake Total 768 Output Total 400 626 300 Balance 368 -626 -300 Intake: Oral 768 Output: Urine 400 625 300 Stool 1 Other: Voiding Method Urinal # Bowel Movements 2 - Exam GENERAL EXAM: Alert, very pleasant, 60-year-old white male, mild degree of respiratory distress, currently on high flow oxygen 40 L with an FiO2 of 40% along with 100% nonrebreather facemask. HEAD: Normocephalic/atraumatic. EYES: Normal reaction of pupils, equal size. Conjunctiva pink, sclera white. NOSE: Clear with pink turbinates. THROAT: No erythema or exudates. NECK: No masses, no JVD, no thyroid enlargement, no adenopathy. CHEST: No chest wall deformity. Symmetrical expansion. LUNGS: Equal air entry with bibasilar crackles, but no wheeze, rhonchi or dul lness. CVS: Regular rate and rhythm, normal S1 and S2, no gallops, no murmurs, no rubs ABDOMEN: Soft, nontender. No hepatosplenomegaly, normal bowel sounds, no guarding or rigidity. EXTREMITIES: No clubbing, no edema, no cyanosis, 2+ pulses and upper and lower extremities. MUSCULOSKELETAL: Muscle strength and tone normal. SPINE: No scoliosis or deformity SKIN: No rashes CENTRAL NERVOUS SYSTEM: Alert and oriented -3. No focal deficits, tone is normal in all 4 extremities. PSYCHIATRIC: Alert and oriented -3. Appropriate affect. Intact judgment and insight. - Labs CBC & Chem 7: 11/17/20 08:04 11/17/20 08:01 Labs: Abnormal Lab Results - Last 24 Hours (Table) 11/17/20 Range/Units 08:04 WBC 14.22 H (4.50-10.00) X 10*3/uL RBC 5.94 H (4.40-5.60) X 10*6/uL RDW 15.6 H (11.5-14.5) % Absolute Nucleated RBC 0.04 H (0.00-0.00) X 10*3/uL Immature Gran # 0.57 H (0.00-0.04) X 10*3/uL Neutrophils # 11.68 H (1.80-7.70) X 10*3/uL Lymphocytes # 0.89 L (0.90-5.00) X 10*3/uL Monocytes # 1.01 H (0.20-1.00) X 10*3/uL Eosinophils # 0 L (0.04-0.35) X 10*3/uL NRBC/100 WBC Diff 0.3 H (0.0-0.0) /100 WBCS Assessment and Plan Plan: #1. Acute hypoxic respiratory failure related to acute COVID-19 pneumonia, outside the window for Remdesivir. Chronic candidate for COVID-19 antibiotic infusion. Onset of symptoms was greater than 10 days prior to presentation. Patient had worsening of his dyspnea and hypoxia, he is status post post-of tocilizumab infusion on 11/08/2020 clinically, the patient is unchanged over the past 48 hours. He remains on on high flow oxygen at 40 L with an FiO2 of 40%. Oxygenation is stable for now. #2. Myalgias, fever, cough, dyspnea related to the above #3. Previous history of DVT and bilateral PEs in 2009, currently not on chronic anticoagulation #4. History of kidney stones #5. Osteoarthritis . History of hip surgery #6. Nonsmoker Plan: Continue Decadron 6 mg IV every 24 hours continue Lovenox at a dose of 40 mg subcu daily Attempt to The Flow down to 35 L If Possible to Maintain Saturation above 90%. IV fluids at 20 mL an hour Continue vitamins Patient is breathing fairly comfortably on today's exam, vital signs are stable Family was updated Inflammatory markers were noted. Not ready for discharge with a high oxygen flow requirements. We'll continue to follow.
--- NOTE | 2020-11-18 11:20 | P.PN ---
Subjective This is a pleasant 60 years old male with multiple medical problems presents with respiratory distress found to have bilateral covid Pneumonia currently he remains in the ICU he needs 60% high flow oxygen via nasal cannula. There's no vitals are stable and he is afebrile. Labs look stable, d-dimer mildly elevated at 1.4, lactate dehydrogenase is slightly elevated at 967, C-reactive protein is normal at 0.5. With chest X ray showing bilateral infiltrates He remains on dexamethasone IV 6 mg daily, multiple vitamins, vitamin C, vitamin D and zinc. Lovenox. He is outside of the window of remdesivir since his presentation is more than 10 days from onset of symptoms however he is status post tocizulumab. 11/14/2020 Patient's clinical condition does not change much from yesterday. He still was some dyspnea. A still on 60 FiO2 of oxygen via high flow nasal cannula Labs look stable Remains on Lovenox, dexamethasone, vitamin C, D and zinc Lactic dehydrogenase is elevated at 976 similar to yesterday and C-reactive protein less than 0.5. Patient will be transferred to the general medical floor per ICU team 11/15/2020 Patient is breathing comfortably today and is FiO2 lower to 50% with a flow rate of 45 L/m. He is doing better sitting up in bed does not look in respiratory distress Vitals stable. No labs. Patient continued on dexamethasone and multiple vitamins as well as prophylactic dose of Lovenox Patient is going to be moved out of the ICU today 11/16/2020 Patient's clinical condition is improving, his breathing is easier and his oxygen requirement lower today to 10 L/m with FiO2 of 40% Other than his chest x-ray stable Base of the same treatment of dexamethasone and vitamins and Lovenox Repeat labs tomorrow morning 11/17/2020 patient improving gradually and progressively but slowly. He is breathing quietly, he is on oxygen via high flow nasal cannula at 2 L with FiO2 of 40% He has mild leukocytosis and LDH is trending down to 690. Reactive protein remains negative less than 0.5 Remains on multiple vitamins, dexamethasone and Lovenox 11/18/2020 Patient is breathing is very, he is slowly to improve. He has some cough but no chest pain. No diarrhea. He is still on 10 L oxygen via nasal cannula at 40%. His breathing 16-20 breaths per minute. Plan is to try to wean down his oxygen requirement Labs from today He remains on dexamethasone and multiple vitamins and Lovenox for his Covid pneumonia. Check labs tomorrow morning Objective - Vital Signs Vital signs: Vital Signs Temp 97.7 F 11/18/20 10:00 Pulse 93 11/18/20 10:00 Resp 20 11/18/20 10:00 BP 134/71 11/18/20 10:00 Pulse Ox 92 L 11/18/20 08:30 Intake & Output 11/17/20 11/18/20 11/18/20 18:59 06:59 18:59 Intake Total 768 Output Total 400 626 300 Balance 368 -626 -300 Intake: Oral 768 Output: Urine 400 625 300 Stool 1 Other: Voiding Method Urinal # Bowel Movements 2 - Exam GENERAL: The patient is alert and oriented x3, not in any acute distress. Well d eveloped, well nourished. HEENT: Pupils are round and equally reacting to light. EOMI. No scleral icterus. No conjunctival pallor. Normocephalic, atraumatic. No pharyngeal erythema. No thyromegaly. CARDIOVASCULAR: S1 and S2 present. No murmurs, rubs, or gallops. PULMONARY: Chest is clear to auscultation, no wheezing or crackles. ABDOMEN: Soft, nontender, nondistended, normoactive bowel sounds. No palpable organomegaly. MUSCULOSKELETAL: No joint swelling or deformity. EXTREMITIES: No cyanosis, clubbing, or pedal edema. NEUROLOGICAL: Gross neurological examination did not reveal any focal deficits. SKIN: No rashes. no petechiae. - Labs CBC & Chem 7: 11/17/20 08:04 11/17/20 08:01 Labs: Abnormal Lab Results - Last 24 Hours (Table) 11/17/20 Range/Units 08:04 WBC 14.22 H (4.50-10.00) X 10*3/uL RBC 5.94 H (4.40-5.60) X 10*6/uL RDW 15.6 H (11.5-14.5) % Absolute Nucleated RBC 0.04 H (0.00-0.00) X 10*3/uL Immature Gran # 0.57 H (0.00-0.04) X 10*3/uL Neutrophils # 11.68 H (1.80-7.70) X 10*3/uL Lymphocytes # 0.89 L (0.90-5.00) X 10*3/uL Monocytes # 1.01 H (0.20-1.00) X 10*3/uL Eosinophils # 0 L (0.04-0.35) X 10*3/uL NRBC/100 WBC Diff 0.3 H (0.0-0.0) /100 WBCS Assessment and Plan Assessment: Bilateral Covid pneumonia Hypoxic respiratory failure Elevated inflammatory markers Plan: This is a pleasant 60 years old male who presents with covid and pneumonia. Continue with multiple vitamin cocktail. Continue with Lovenox and dexamethasone Continue with high flow oxygen nasal cannula Pulmonary consult Labs and medication were reviewed.. Continue same treatment. Continue with sy mptomatic treatment. Resume home medication. Monitor lytes and vitals. DVT and GI prophylaxis. Further recommendationsas per clinical course of the patient DVT prophylaxis: Subcutaneous Lovenox GI Prophylaxis: Pepcid Prognosis is guarded
[2020-11-18] MEDS: MULTIVITAMINS, THERA 1 EACH TAB PO SCH (14:41)
--- NOTE | 2020-11-18 19:01 | PN ---
PROGRESS NOTE DATE OF SERVICE: 11/18/2020 REASON FOR FOLLOWUP: COVID-19 pneumonia. INTERVAL HISTORY: The patient is afebrile. He is breathing comfortably. Denies having any chest pain. Continues to have a cough; no worsening, though. No vomiting. No abdominal pain or diarrhea. PHYSICAL EXAMINATION: Blood pressure 136/75 with a pulse of 95, temperature 97.8. He is 95% on 8 L high-flow oxygen. GENERAL DESCRIPTION: General description is a middle-aged male up in the chair in no distress. RESPIRATORY SYSTEM: Unlabored breathing. Bibasilar crackles. No wheeze. HEART: S1, S2. Regular rate and rhythm. ABDOMEN: Soft. No tenderness. EXTREMITIES: No edema of the feet. LABS: No new labs have been obtained today. DIAGNOSTIC IMPRESSION AND PLAN: Patient with acute COVID-19 pneumonia in this patient who has shown overall clinical improvement, slowly, gradually. No evidence of any secondary bacterial pneumonia. Patient to continue with Lovenox, dexamethasone, zinc, ascorbic acid. No need for any systemic antibiotic therapy. Continue with supportive care. MMODL / IJN: [id number] /
[2020-11-18] MEDS: LORATADINE 10 MG TAB PO SCH (20:43)
[2020-11-19] MEDS: FAMOTIDINE 20 MG TAB PO SCH ×2 (08:11→21:34)
[2020-11-19] MEDS: CHOLECALCIFEROL 25 MCG (1000 IU) TABLET PO SCH (08:11)
[2020-11-19] MEDS: DEXAMETHASONE SOD PHOSPHATE 10 MG/ML 1 ML VIAL IV SCH (08:11)
[2020-11-19] MEDS: ZINC SULFATE 220 MG CAP PO SCH (08:11)
[2020-11-19] MEDS: ASCORBIC ACID 500 MG TAB PO SCH ×2 (08:11→21:34)
[2020-11-19] MEDS: ENOXAPARIN 40 MG/0.4 ML SYRINGE SQ SCH (08:11)
[2020-11-19] MEDS: FLUTICASONE 50MCG/SPRAY NASAL 16GM EA NOSTRIL SCH (08:12)
[2020-11-19] MEDS: ALBUTEROL HFA INHALER INHALATION SCH ×4 (08:34→19:46)
[2020-11-19] MEDS: SODIUM CHLORIDE 0.9% 1,000 ML IV SCH (11:08)
[2020-11-19 11:19] LABS: HCT 53.2 % (39.6-50.0); HGB 17.2 g/dL (13.0-17.0); MCH 27.3 pg (27.0-32.0); MCHC 32.3 g/dL (32.0-37.0); MCV 84.4 fL (80.0-97.0); Mean Platelet Volume 11.2 fL (9.5-12.2); Platelet Count 202 X 10*3/uL (140-440); RDW 16.2 % (11.5-14.5); WBC 17.74 X 10*3/uL (4.50-10.00)
[2020-11-19] MEDS: MULTIVITAMINS, THERA 1 EACH TAB PO SCH (12:26)
[2020-11-19 12:51] LABS: Basophils # (M) 0 X 10*3/uL (0.00-0.10); Eosinophils # (M) 0 X 10*3/uL (0.04-0.35); Lymphocytes # (M) 0.53 X 10*3/uL (0.90-5.00); Metamyelocytes % 4 % (0-0); Monocytes # (M) 1.06 X 10*3/uL (0.20-1.00); Myelocytes % 1 % (0-0); Neutrophils # (M) 15.26 X 10*3/uL (2.00-8.90); Neutrophils % (M) 86 %
[2020-11-19 13:46] LABS: African American GFR (CKD) 114.1 (60.0-200.0); Anion Gap 9.6 mmol/L (4.00-12.00); BUN/Creat Ratio 36.25 Ratio (12.00-20.00); Calcium 9.3 mg/dL (8.7-10.3); Carbon Dioxide 29.4 mmol/L (21.6-31.8); Magnesium 2.1 mg/dL (1.5-2.4); Non-African American GFR(CKD) 98.5 (60.0-200.0); Potassium 4.9 mmol/L (3.5-5.5)
--- NOTE | 2020-11-19 14:32 | P.PN ---
Subjective Progress Note Date: 11/19/20 Principal diagnosis: Coronavirus pneumonia. 2020, the patient is being seen in follow-up in the intensive care unit. The patient is essentially the same compared to yesterday. No worsening his chest x-ray findings. He remains on high flow oxygen at 60 L with an FiO2 of 90%. Pulse ox is ranging as low as 88% up to 94%. He gets short of breath with limited amount of activity. He had a bowel movement yesterday and took a lot of energy and he became quite short of breath while having a bowel movement. He also is having some dry cough. No significant sputum production. White cell count is at 4.7 with a hemoglobin of 15.1. He is currently wearing 100% nonrebreather facemask and combination to his high flow oxygen. His LDH level from yesterday was down to 1130 and a CRP isn't 2.9 with a d-dimer of 0.8. Chest x-ray shows no significant interval change in the patient has infiltrates in the lung bases bilaterally. No nausea. No vomiting. No diarrhea. IV fluids are running in the form of normal saline at the rate of 75 mL an hour. The patient is also on Lovenox 40 mg subcu daily. He is on vitamins including vitamin C and E and zinc. His chest x-ray is unchanged. On examination she is to have some coarse crackles in lung bases bilaterally. No altered mentation. Appetite is low. 11/11/2020, I'm seeing the patient for a follow-up. He is feeling better today and he is breathing is more comfortable. He remains on high flow oxygen at 6 L with an FiO2 of 90%. On today's evaluation, he is talking comfortably. He has not used the 100% nonrebreather facemask. His pulse ox is around 92%. Chest x- ray shows a stable left lower lobe consolidation and some limited infiltration bilaterally. D-dimer from yesterday was at 0.8. Rest of the labs are all stable with a white cell count of 5.5 and hemoglobin of 15.4. CRP from yesterday was at 2.9 with a LDH level of 1130. He remains on Decadron 6 mg IV every 24 hours. He remains on anticoagulation with Lovenox 40 mg subcu every 24 hours. Eating well. No altered mentation. 11/13/2020, I'm seeing this patient for a follow-up. The patient is currently on high flow oxygen at 6 L and FiO2 of 70%. He is also on and off using the 100% on a beta facemasks. No significant change compared to yesterday. He remains on Decadron 6 mg IV every 24 hours. Remains on Lovenox 4 mg subcu for D VT prophylaxis. No chest pain. No headaches. No altered mentation. His cough is essentially dry. His LDH level and the CRP level were essentially dropping and the patient's chest x-rays remained stable over the past 48 hours. He is tolerating his diet is using incentive spirometer. His doing positional therapy and he is unable to fully pronate himself. Nevertheless, his overall condition is stable. He remains on multivitamins regarding his COVID 19 related pneumonia. 11/14/2020, the patient continues to show signs of improvement. This morning he is on the oxygen flow of 50 L with an FiO2 of 50%. Doing well. Pulse ox is 93%. Afebrile. He remains on Decadron 6 mg IV every 24 hours. No new complaints. Is able to get out of the bed. Is able to sit up on a chair. Occasional dry cough. No significant sputum production. No hemoptysis. No pleurisy. Using incentive spirometer. White cell count is at 10.9 with hemoglobin of 16. BUN is at 26 with a creatinine of 0.8. LDH level is at 976 and the pro calcitonin level is at 0.05. The d-dimer is at 1.4. Remains on Lovenox 40 mg subcu every 24 hours. The patient is seen today 11/16/2020 in follow-up on the regular medical floor. He is currently sitting up in a chair at the bedside. Awake, alert in no acute distress. He remains on AirVo high flow oxygen at 40 L and 40% FiO2. Continues to improve daily. 6 continues to show stable bilateral infiltrates. Sputum culture reveals no growth 2. No new labs today. He remains on Decadron, Lovenox, vitamin supplements. The patient is seen today 11/17/2020 in follow-up on the regular medical floor. He is awake and alert in no acute distress. Maintaining O2 saturations in the 90s on AirVo high flow oxygen at 40 L and 40% FiO2. White count 14.2. Hemoglobin 16.3. Lymphocytes 0.89. Sodium 134. Potassium 4.4. Creatinine 0.70. LDH 690. He remains on Decadron, Lovenox, vitamin supplements. 11/18 2020, the patient remains on 40 L of oxygen with an FiO2 of 40%. Pulse ox is 91%. No new complaints. Unable to wean it down further because of desaturations. We'll try to go down to a lesser flow. Remains on Decadron. Remains on Lovenox. Remains on multivitamins. LDH is in the 600s range without any significant elevation. He is fatigued and tired. Clinically however stable. No worsening shortness of breath. No chest pain. No angina. No p alpitation. No other significant events Progress note dated 11/19/2020. Currently, the patient appears to be doing much better. The patient's oxygen has been weaned down from 15 L high flow, to 12 L high flow, and now down to 10 L high flow O2. We will continue to follow down his oxygen as long as his saturations remain above 90%. Clinically, the patient appears well. Today's labs include a white count 17.74, hemoglobin 17.2, hematocrit 53.2, and platelet count is normal. Sodium 140, potassium 4.9, chlorides 101, CO2 29, anion gap 10, BUN 29, creatinine 0.8. Objective - Vital Signs Vital signs: Vital Signs Temp 97.9 F 11/19/20 10:10 Pulse 95 11/19/20 10:10 Resp 17 11/19/20 10:10 BP 149/75 11/19/20 10:10 Pulse Ox 95 11/19/20 10:10 Intake & Output 11/18/20 11/19/20 11/19/20 18:59 06:59 18:59 Intake Total 1080 Output Total 300 300 Balance 780 -300 Intake: Oral 1080 Output: Urine 300 300 Other: Voiding Method Urinal # Voids 3 - Exam No acute distress, oriented 3. Currently on 10 L high flow oxygen. No conversational dyspnea or use of accessory muscles. HEENT examination is grossly unremarkable. Neck supple. Full range of motion. No adenopathy thyromegaly or neck vein d istention. Cardiovascular examination reveals regular rhythm rate. S1-S2 normal. No S3 or S4. No discernible murmur noted. Heart sounds are distant. Heart rate 95 bpm. Lungs reveal bilateral rhonchi. No wheezes or crackles. Breath sounds equal bilaterally. Abdomen soft bowel sounds are heard. No masses or tenderness. Extremities are intact. No cyanosis clubbing or edema. Skin is without rash or lesion. Neurologic examination is brief but nonfocal. - Labs CBC & Chem 7: 11/19/20 07:01 11/19/20 07:01 Labs: Abnormal Lab Results - Last 24 Hours (Table) 11/19/20 11/19/20 Range/Units 07:01 07:01 WBC 17.74 H (4.50-10.00) X 10*3/uL RBC 6.30 H (4.40-5.60) X 10*6/uL Hgb 17.2 H (13.0-17.0) g/dL Hct 53.2 H (39.6-50.0) % RDW 16.2 H (11.5-14.5) % Absolute Nucleated RBC 0.17 H (0.00-0.00) X 10*3/uL Metamyelocytes % 4 H (0-0) % Myelocytes % 1 H (0-0) % Neutrophils # (Manual) 15.26 H (2.00-8.90) X 10*3/uL Lymphocytes # (Manual) 0.53 L (0.90-5.00) X 10*3/uL Monocytes # (Manual) 1.06 H (0.20-1.00) X 10*3/uL Eosinophils # (Manual) 0 L (0.04-0.35) X 10*3/uL NRBC/100 WBC Diff 1.0 H (0.0-0.0) /100 WBCS BUN 29.0 H (9.0-27.0) mg/dL BUN/Creatinine Ratio 36.25 H (12.00-20.00) Ratio Glucose 127 H (70-110) mg/dL Lactate Dehydrogenase 463 H (120-246) U/L Assessment and Plan Assessment: Acute hypoxemic respiratory failure secondary to COVID 19 pneumonia. Prior history of DVT and bilateral pulmonary emboli, 2009. History of kidney stones. Lifelong nontobacco user. History of osteoarthritis. Plan: Plan dated 11/19/2020. The patient is doing better. His oxygen is turned down to 10 L high flow. We will continue to follow. Prognosis is guarded. The patient continues on Decadron 6 mg daily, and Lovenox, 40 mg daily we will continue to watch patient closely and make recommendations where appropriate. The patient also remains on vitamins such as vitamin C, vitamin D3, and zinc. The patient was not a candidate for REM, but did receive TOCI. Time with Patient: Less than 30
--- NOTE | 2020-11-19 14:42 | P.PN ---
Subjective Progress Note Date: 11/19/20 This is a 60-year-old male who was recently admitted with increasing shortness of breath and respiratory distress found to have bilateral COVID-19 pneumonia and is being closely monitored. Infectious disease along with pulmonary following closely. Patient continues on IV dexamethasone along with Lovenox and vitamin and zinc supplements and will continue. Patient continues on high flow oxygen via nasal cannula and weaning as tolerated. Patient is currently on 12 L high flow. Incentive spirometer at the bedside and instructed the patient to continue using at least 10 times every hour while awake along with increasing activity as tolerated. Patient reports to tolerating diet with no reports of nausea or vomiting noted. White blood count elevated at 17.74 with a hemoglobin of 17.2. Sodium is 140 with a potassium of 4.9 and current creatinine is 0.8. Magnesium is 2.1. LDH trending down and 463. Patient is afebrile. Review of systems: Constitutional: No reports of fatigue, fever, or chills Cardiovascular: No reports of chest pain or palpitations Respiratory: Reports shortness of breath although he feels is improving GI: No reports of nausea, vomiting, or diarrhea : No reports of dysuria or retention Neurovascular: No reports of weakness or numbness All medications have been reviewed Active Medications Acetaminophen (Acetaminophen Tab 325 Mg Tab) 650 mg PO Q6HR PRN PRN Reason: Mild Pain or Fever > 100.5 Albuterol Sulfate (Albuterol Hfa Inhaler) 2 puff INHALATION RT-QID [facility] Last Admin: 11/19/20 11:54 Dose: 2 puff Documented by: Ascorbic Acid (Ascorbic Acid 500 Mg Tab) 500 mg PO BID [facility] Last Admin: 11/19/20 08:11 Dose: 500 mg Documented by: Benzonatate (Benzonatate 100 Mg Cap) 100 mg PO TID PRN PRN Reason: Cough Last Admin: 11/16/20 10:22 Dose: 100 mg Documented by: Cholecalciferol (Cholecalciferol 25 Mcg (1000 Iu) Tablet) 25 mcg PO DAILY [facility] Last Admin: 11/19/20 08:11 Dose: 25 mcg Documented by: Cyclobenzaprine HCl (Cyclobenzaprine 10 Mg Tab) 10 mg PO HS PRN PRN Reason: Muscle Spasm Dexamethasone Sodium Phosphate (Dexamethasone Sod Phosphate 10 Mg/Ml 1 Ml Vial) 6 mg IV DAILY [facility] Last Admin: 11/19/20 08:11 Dose: 6 mg Documented by: Enoxaparin Sodium (Enoxaparin 40 Mg/0.4 Ml Syringe) 40 mg SQ DAILY [facility] Last Admin: 11/19/20 08:11 Dose: 40 mg Documented by: Famotidine (Famotidine 20 Mg Tab) 20 mg PO BID [facility] Last Admin: 11/19/20 08:11 Dose: 20 mg Documented by: Fluticasone Propionate (Fluticasone 50mcg/[place] Nasal 16gm) 2 spray EA NOSTRIL DAILY [facility] Last Admin: 11/19/20 08:12 Dose: Not Given Documented by: Gabapentin (Gabapentin 100 Mg Cap) 100 mg PO BID PRN PRN Reason: Pain Sodium Chloride (Saline 0.9%) 1,000 mls @ 20 mls/hr IV .Q24H [facility] Last Admin: 11/19/20 11:08 Dose: Not Given Documented by: Loratadine (Loratadine 10 Mg Tab) 10 mg PO HS [facility] Last Admin: 11/18/20 20:43 Dose: 10 mg Documented by: Meloxicam (Meloxicam 7.5 Mg Tab) 7.5 mg PO DAILY PRN PRN Reason: Pain Multivitamins (Multivitamins, Thera 1 Each Tab) 1 each PO DAILY@1200 [facility] Last Admin: 11/19/20 12:26 Dose: 1 each Documented by: Naloxone HCl (Naloxone 0.4 Mg/Ml 1 Ml Vial) 0.2 mg IV Q2M PRN PRN Reason: Opioid Reversal Ondansetron HCl (Ondansetron 4 Mg/2 Ml Vial) 4 mg IVP Q8HR PRN PRN Reason: Nausea And Vomiting Zinc Sulfate (Zinc Sulfate 220 Mg Cap) 220 mg PO DAILY [facility] Last Admin: 11/19/20 08:11 Dose: 220 mg Documented by: Objective - Vital Signs Vital signs: Vital Signs Temp 98.0 F 11/19/20 05:22 Pulse 72 11/19/20 05:22 Resp 16 11/19/20 05:22 BP 145/82 11/19/20 05:22 Pulse Ox 96 11/19/20 09:18 Intake & Output 11/18/20 11/19/20 11/19/20 18:59 06:59 18:59 Intake Total 1080 Output Total 300 300 Balance 780 -300 Intake: Oral 1080 Output: Urine 300 300 Other: Voiding Method Urinal # Voids 3 - Exam Gen: This is a 60-year-old male sitting up in the chair awake, alert and oriented 3, well-developed, well-nourished. Temp is 97.9F pulse is 95, respirations are 17, blood pressure is 149/75, oxygen is 95% and currently on high flow nasal cannula of 12 L HEENT: Head is atraumatic, normocephalic. Pupils equal, round. Sclerae is anicteric. NECK: Supple. No JVD. No lymphadenopathy. No thyromegaly. LUNGS: Diminished breath sounds bilaterally with coarse rhonchi noted throughout. No intercostal retractions. HEART: S1, S2 are muffled ABDOMEN: Soft. Obese. Bowel sounds are present. No masses. No tenderness. EXTREMITIES: No pedal edema. No calf tenderness. NEUROLOGICAL: Patient is awake, alert and oriented x3. Cranial nerves 2 through 12 are grossly intact. diffusely weak - Labs CBC & Chem 7: 11/19/20 07:01 11/19/20 07:01 Assessment and Plan Assessment: Acute COVID-19 bilateral interstitial pneumonia with acute hypoxic respiratory failure Lymphopenia Hyponatremia Elevated random glucose elevated AST, ALT possibly secondary to COVID-19 Elevated inflammatory markers of COVID-19 History of left hip surgery with multiple complications History of DVT history of pulmonary embolus history of kidney stones History of adenoidectomy History back surgery history of degenerative joint disease Full code Recommendations and discussion: Recommend continue with current medications and current management. Continue to wean FiO2 as tolerated. Patient currently maintained on 12 L high flow [place] 95% oxygen saturation. Encouraged incentive spirometer and continue to increase activity as tolerated. Inflammatory markers trending down with pulmonary and infectious disease following. Patient to continue on Lovenox along with vitamin and zinc supplements and dexamethasone. Patient did receive Tocilizumab this admission. Due to Multiple complex medical issues prognosis remains guarded. Continue with oxygen support and wean as tolerated. Time with Patient: Greater than 30
--- NOTE | 2020-11-19 16:51 | PN ---
PROGRESS NOTE DATE OF SERVICE: 11/19/2020. REASON FOR FOLLOWUP: COVID-19 pneumonia. INTERVAL HISTORY: The patient is afebrile. The patient is feeling better, breathing slightly comfortably. The patient denies having any chest pain, cough. ( ) drainage. No nausea, vomiting. No abdominal pain, no diarrhea. PHYSICAL EXAMINATION: Blood pressure 149/75, pulse 95, temperature 97.8. He is 95% on 10 L high-flow oxygen. General description is a middle-aged male up in the chair in no distress. Respiratory system: Unlabored breathing, decreased breath sounds in the base, with no wheeze. Heart: S1, S2. Regular rate and rhythm. Abdomen soft, no tenderness. LABS: Hemoglobin is 17.2, white count 17.74, creatinine 0.70. Sputum has been negative. DIAGNOSTIC IMPRESSION AND PLAN: Patient with acute COVID-19 pneumonia. Patient did not qualify for Remdesivir ( ), received Actemra. Currently without evidence of secondary bacterial infection. The patient did have elevated white count, more likely steroid, will continue to monitor closely. Continue with dexamethasone, ascorbic acid and continue supportive care. MMODL / IJN: [id number] /
[2020-11-19] MEDS: LORATADINE 10 MG TAB PO SCH (21:34)
[2020-11-20] MEDS: ASCORBIC ACID 500 MG TAB PO SCH ×2 (07:47→21:39)
[2020-11-20] MEDS: ZINC SULFATE 220 MG CAP PO SCH (07:47)
[2020-11-20] MEDS: DEXAMETHASONE SOD PHOSPHATE 10 MG/ML 1 ML VIAL IV SCH (07:47)
[2020-11-20] MEDS: ENOXAPARIN 40 MG/0.4 ML SYRINGE SQ SCH (07:47)
[2020-11-20] MEDS: MULTIVITAMINS, THERA 1 EACH TAB PO SCH (07:47)
[2020-11-20] MEDS: CHOLECALCIFEROL 25 MCG (1000 IU) TABLET PO SCH (07:47)
[2020-11-20] MEDS: FAMOTIDINE 20 MG TAB PO SCH ×2 (07:47→21:39)
[2020-11-20] MEDS: FLUTICASONE 50MCG/SPRAY NASAL 16GM EA NOSTRIL SCH (07:48)
[2020-11-20] MEDS: SODIUM CHLORIDE 0.9% 1,000 ML IV SCH (07:49)
[2020-11-20] MEDS: ALBUTEROL HFA INHALER INHALATION SCH ×4 (09:44→21:18)
--- NOTE | 2020-11-20 12:26 | P.PN ---
Subjective Progress Note Date: 11/20/20 Principal diagnosis: COVID-19 pneumonia This 60-year-old white male patient of Dr. Moreno, with past medical history of DVT and bilateral PEs back in 2009, currently not on any chronic anticoagulation, hip replacement surgery, history of adenoidectomy and back surgery who presented to the emergency department on 11/06/2020 for evaluation of shortness of breath, fever, cough. Patient symptoms were suspicious for COVID-19 infection. His symptom onset was 10 days prior to common into the emergency department. His symptoms started with upper respiratory symptoms, productive cough of mild mucus, as well as dyspnea that has worsened over the last 1-2 days. Patient went to the urgent care on 11/06/2020 and was found to be hypoxic, and he was sent in to the emergency department for further treatment and evaluation for suspicion of COVID-19 pneumonia. Patient states his recently had COVID-19 infection, she had symptoms for 15 days. He denied any nausea, no vomiting, no abdominal pain no headaches. No lower extremity swelling, no chest discomfort. He has no chronic lung condition, he denies history of smoking. No hemoptysis. He reports subjective fever and chills at home. He is not vaccinated for COVID-19. At the urgent care clinic he was given a prednisone taper starting at 40 mg. His chest x-ray showed some coarsening of interstitial markings at the lower lung holt. EEG showed normal sinus rhythm, he is COVID-19 PCR was found to be positive, CBC showed white count of 4.4, hemoglobin of 15, lymphocytes, 0.3, his d-dimer was 1.05, sodium was 133, the rest of the electrolytes were unremarkable, BUN is 15 creatinine 0.65, his ferritin level was 1939, AST was 69, ALT was 55, LDH was 1297, CRP was 6.8, troponin was less than 0.012. Pro-calcitonin level was 0.14. Patient was outside the window for Remdesivir. He was also not a candidate for COVID antibiotic infusion. His been started on Decadron 6 mg daily, he was placed on prophylactic dose Lovenox, COVID-19 vitamin C cloudy vitamin C, vitamin D and zinc. He is currently up to 5 L of oxygen, and his pulse ox is 90-91%. CTA chest was completed showing no evidence of PE, and it showed extensive bilateral pulmonary infiltrate is consistent with pneumonia or RDS. His evaluation on 11/09/2020 patient is seen in the intensive care unit, he is awake and alert, oriented 3, still requiring high flow oxygen for Airvo, at 60 L and FiO2 of 90%, and his pulse ox was around 93-96%, he seems to be breathing comfortably, he states he feels better today, he did have an episode of shortn ess of breath last night. Today's follow-up chest x-ray has been reviewed showing bilateral lower lobe infiltrates, not significantly changed. He received a dose of Actos of his imatinib yesterday 800 mg 1, he remains on IV Decadron 6 mg daily, she is on prophylactic anticoagulation with Lovenox 40 mg daily and COVID-19 vitamins, including vitamin C, D, and zinc vitamins. No crackles at bilateral bases, no wheezing. Occasional cough, nonproductive, no complaints of chest discomfort. He states he slightly nauseous today, but he hasn't had anything to eat, he is requesting some dry saltine crackers. No emesis, no diarrhea, no abdominal discomfort. Today's labs have been reviewed. White blood cell count is 3.8, hemoglobin is 14.3, d-dimer is 0.84, sodium is 134, Celexa lites and renal profile were unremarkable, LDH is 1130, and CRP is 2.9, pro calcitonin level was low at 0.14. He is on 0.9 normal saline 75 ML per hour. In sinus mechanism, blood pressure is stable, currently 130/83. 8/2020, the patient is being seen in follow-up in the intensive care unit. The patient is essentially the same compared to yesterday. No worsening his chest x-ray findings. He remains on high flow oxygen at 60 L with an FiO2 of 90%. Pulse ox is ranging as low as 88% up to 94%. He gets short of breath with limited amount of activity. He had a bowel movement yesterday and took a lot of energy and he became quite short of breath while having a bowel movement. He also is having some dry cough. No significant sputum production. White cell count is at 4.7 with a hemoglobin of 15.1. He is currently wearing 100% nonrebreather facemask and combination to his high flow oxygen. His LDH level from yesterday was down to 1130 and a CRP isn't 2.9 with a d-dimer of 0.8. Chest x-ray shows no significant interval change in the patient has infiltrates in the lung bases bilaterally. No nausea. No vomiting. No diarrhea. IV fluids are running in the form of normal saline at the rate of 75 mL an hour. The patient is also on Lovenox 40 mg subcu daily. He is on vitamins including vitamin C and E and zinc. His chest x-ray is unchanged. On examination she is to have some coarse crackles in lung bases bilaterally. No altered mentation. Appetite is low. 11/11/2020, I'm seeing the patient for a follow-up. He is feeling better today and he is breathing is more comfortable. He remains on high flow oxygen at 6 L with an FiO2 of 90%. On today's evaluation, he is talking comfortably. He has not used the 100% nonrebreather facemask. His pulse ox is around 92%. Chest x-ray shows a stable left lower lobe consolidation and some limited infiltration bilaterally. D-dimer from yesterday was at 0.8. Rest of the labs are all stable with a white cell count of 5.5 and hemoglobin of 15.4. CRP from yesterday was at 2.9 with a LDH level of 1130. He remains on Decadron 6 mg IV every 24 hours. He remains on anticoagulation with Lovenox 40 mg subcu every 24 hours. Eating well. No altered mentation. 11/13/2020, I'm seeing this patient for a follow-up. The patient is currently on high flow oxygen at 6 L and FiO2 of 70%. He is also on and off using the 100% on a beta facemasks. No significant change compared to yesterday. He remains on Decadron 6 mg IV every 24 hours. Remains on Lovenox 4 mg subcu for DVT prophylaxis. No chest pain. No headaches. No altered mentation. His cough is essentially dry. His LDH level and the CRP level were essentially dropping and the patient's chest x-rays remained stable over the past 48 hours. He is tolerating his diet is using incentive spirometer. His doing positional therapy and he is unable to fully pronate himself. Nevertheless, his overall condition is stable. He remains on multivitamins regarding his COVID 19 related pneumonia. 11/14/2020, the patient continues to show signs of improvement. This morning he is on the oxygen flow of 50 L with an FiO2 of 50%. Doing well. Pulse ox is 93%. Afebrile. He remains on Decadron 6 mg IV every 24 hours. No new complaints. Is able to get out of the bed. Is able to sit up on a chair. Occasional dry cough. No significant sputum production. No hemoptysis. No pleurisy. Using incentive spirometer. White cell count is at 10.9 with hemoglobin of 16. BUN is at 26 with a creatinine of 0.8. LDH level is at 976 and the pro calcitonin level is at 0.05. The d-dimer is at 1.4. Remains on Lovenox 40 mg subcu every 24 hours. The patient is seen today 11/16/2020 in follow-up on the regular medical floor. He is currently sitting up in a chair at the bedside. Awake, alert in no acute distress. He remains on AirVo high flow oxygen at 40 L and 40% FiO2. Continues to improve daily. 6 continues to show stable bilateral infiltrates. Sputum culture reveals no growth 2. No new labs today. He remains on Decadron, Lovenox, vitamin supplements. The patient is seen today 11/17/2020 in follow-up on the regular medical floor. He is awake and alert in no acute distress. Maintaining O2 saturations in the 90s on AirVo high flow oxygen at 40 L and 40% FiO2. White count 14.2. Hemoglobin 16.3. Lymphocytes 0.89. Sodium 134. Potassium 4.4. Creatinine 0.70. LDH 690. He remains on Decadron, Lovenox, vitamin supplements. The patient is seen today 11/20/2020 in follow-up on the regular medical floor. He is currently sitting up in a chair at the bedside. Awake and alert in no acute distress. He is down to 7 L high flow nasal cannula currently. O2 saturation at 92%. He is afebrile. Hemodynamically stable. Sputum culture revealed no growth 2. No new Labs today. He remains on Decadron, Lovenox, vitamin supplements. Objective - Vital Signs Vital signs: Vital Signs Temp 97.8 F 11/20/20 09:19 Pulse 94 11/20/20 09:19 Resp 17 11/20/20 09:19 BP 131/77 11/20/20 09:19 Pulse Ox 92 L 11/20/20 09:19 Intake & Output 11/19/20 11/20/20 11/20/20 18:59 06:59 18:59 Intake Total 160 Output Total 301 Balance -301 160 Intake: Intake, IV Titration 160 Amount Sodium Chloride 0.9% 1, 160 000 ml @ 20 mls/hr IV . Q24H [facility] Rx#:[id number] Output: Urine 300 Stool 1 Other: Voiding Method Urinal # Voids 3 - Exam GENERAL EXAM: Alert, very pleasant, 60-year-old male patient, mild degree of respiratory distress, currently on 7 L high flow nasal cannula. HEAD: Normocephalic/atraumatic. EYES: Normal reaction of pupils, equal size. Conjunctiva pink, sclera white. NOSE: Clear with pink turbinates. THROAT: No erythema or exudates. NECK: No masses, no JVD, no thyroid enlargement, no adenopathy. CHEST: No chest wall deformity. Symmetrical expansion. LUNGS: Equal air entry with bibasilar crackles, but no wheeze, rhonchi or dullne ss. CVS: Regular rate and rhythm, normal S1 and S2, no gallops, no murmurs, no rubs ABDOMEN: Soft, nontender. No hepatosplenomegaly, normal bowel sounds, no guarding or rigidity. EXTREMITIES: No clubbing, no edema, no cyanosis, 2+ pulses and upper and lower extremities. MUSCULOSKELETAL: Muscle strength and tone normal. SPINE: No scoliosis or deformity SKIN: No rashes CENTRAL NERVOUS SYSTEM: No focal deficits, tone is normal in all 4 extremities. PSYCHIATRIC: Alert and oriented -3. Appropriate affect. Intact judgment and insight. - Labs CBC & Chem 7: 11/19/20 07:01 11/19/20 07:01 Labs: Abnormal Lab Results - Last 24 Hours (Table) 11/19/20 11/19/20 Range/Units 07:01 07:01 Metamyelocytes % 4 H (0-0) % Myelocytes % 1 H (0-0) % Neutrophils # (Manual) 15.26 H (2.00-8.90) X 10*3/uL Lymphocytes # (Manual) 0.53 L (0.90-5.00) X 10*3/uL Monocytes # (Manual) 1.06 H (0.20-1.00) X 10*3/uL Eosinophils # (Manual) 0 L (0.04-0.35) X 10*3/uL BUN 29.0 H (9.0-27.0) mg/dL BUN/Creatinine Ratio 36.25 H (12.00-20.00) Ratio Glucose 127 H (70-110) mg/dL Lactate Dehydrogenase 463 H (120-246) U/L Assessment and Plan Assessment: 1 Acute hypoxic respiratory failure related to acute COVID-19 pneumonia, outside the window for Remdesivir. Patient had worsening of his dyspnea and hypoxia, he is status post post-of tocilizumab infusion on 11/08/2020 clinically, the patient is gradually improving. He remains on 7 L high flow nasal cannula 2 Myalgias, fever, cough, dyspnea related to the above 3 Previous history of DVT and bilateral PEs in 2009, currently not on chronic anticoagulation 4 History of kidney stones 5 Osteoarthritis . History of hip surgery 6 Nonsmoker Plan: The patient was seen and evaluated by Dr. Bar Currently on 7 L high flow oxygen Continue Lovenox, Decadron, vitamin supplements Titrate the FiO2 as tolerated Home once down to 4-5 L We will continue to follow I, the cosigning physician, performed a history & physical examination of the patient. Lungs sounds crackles in the bilateral posterior bases. Maintaining good O2 saturations in the 90s on 7 L high flow oxygen. I discussed the assessment and plan of care with my nurse practitioner, Kavita Elaine. I attest to the above note as dictated by her.
[2020-11-20] MEDS: NYSTATIN 100,000 UNIT/ML SUSP 500,000 UNIT/5 ML CUP PO SCH ×3 (13:51→21:39)
--- NOTE | 2020-11-20 14:18 | PN ---
PROGRESS NOTE DATE OF SERVICE: 11/20/2020 REASON FOR FOLLOWUP VISIT: COVID-19 pneumonia and elevated white count. INTERVAL HISTORY: The patient is afebrile. The patient is breathing comfortably. The patient denies having any chest pain, shortness of breath or cough with decreased intensity. No nausea, no vomiting. No abdominal pain or diarrhea. PHYSICAL EXAMINATION: Blood pressure is 131/77, pulse of 94, temperature is 97.8. He is 92% on 2 L. General description is a middle-aged male up in the bed in no distress. Respiratory system: Unlabored breathing, clear to auscultation anteriorly. Heart S1, S2. Regular rate and rhythm. Abdomen soft, no tenderness. Extremities: No edema of the feet. LABS: No new labs have been obtained today. DIAGNOSTIC IMPRESSION AND PLAN: 1. Patient with acute COVID-19 infection. The patient did not qualify for Remdesivir, however, did receive Actemra. The patient is currently covered with dexamethasone, zinc and ascorbic acid and shows slow clinical improvement, to continue. 2. Patient with elevated white count, possible oropharyngeal candidiasis. Will add nystatin swish and swallow and see response and monitor clinical course closely. MMODL / IJN: [id number] /
--- NOTE | 2020-11-20 16:34 | P.PN ---
Subjective Progress Note Date: 11/20/20 This is a 60-year-old male who was recently admitted with increasing shortness of breath and respiratory distress found to have bilateral COVID-19 pneumonia and is being closely monitored. Infectious disease along with pulmonary following closely. Patient continues on IV dexamethasone along with Lovenox and vitamin and zinc supplements and will continue. Patient continues on high flow oxygen via nasal cannula and weaning as tolerated. Patient is currently on 12 L high flow. Incentive spirometer at the bedside and instructed the patient to continue using at least 10 times every hour while awake along with increasing activity as tolerated. Patient reports to tolerating diet with no reports of nausea or vomiting noted. White blood count elevated at 17.74 with a hemoglobin of 17.2. Sodium is 140 with a potassium of 4.9 and current creatinine is 0.8. Magnesium is 2.1. LDH trending down and 463. Patient is afebrile. 11/20/2020 Patient is seen and evaluated in follow-up with infectious disease and pulmonary following closely. Patient continues to wean FiO2 as tolerated and was initi ally on 9 L high flow this morning and upon reevaluation in the afternoon patient is maintaining 95% oxygen saturation at 5 L via nasal cannula. Pulmonary following and recommending if patient is stable with oxygen saturations above 90% okay to go home with oxygen and close outpatient follow-up with them. Patient is afebrile. Patient denies any worsening shortness of breath and states he feels is improving each day. Case management provided with prescription for home oxygen that is being arranged prior to discharge. Review of systems: Constitutional: No reports of fatigue, fever, or chills Cardiovascular: No reports of chest pain or palpitations Respiratory: Reports shortness of breath although he feels is improving each day GI: No reports of nausea, vomiting, or diarrhea : No reports of dysuria or retention Neurovascular: No reports of weakness or numbness All medications have been reviewed Active Medications Acetaminophen (Acetaminophen Tab 325 Mg Tab) 650 mg PO Q6HR PRN PRN Reason: Mild Pain or Fever > 100.5 Albuterol Sulfate (Albuterol Hfa Inhaler) 2 puff INHALATION RT-QID [facility] Last Admin: 11/20/20 12:53 Dose: 2 puff Documented by: Ascorbic Acid (Ascorbic Acid 500 Mg Tab) 500 mg PO BID [facility] Last Admin: 11/20/20 07:47 Dose: 500 mg Documented by: Benzonatate (Benzonatate 100 Mg Cap) 100 mg PO TID PRN PRN Reason: Cough Last Admin: 11/16/20 10:22 Dose: 100 mg Documented by: Cholecalciferol (Cholecalciferol 25 Mcg (1000 Iu) Tablet) 25 mcg PO DAILY [facility] Last Admin: 11/20/20 07:47 Dose: 25 mcg Documented by: Cyclobenzaprine HCl (Cyclobenzaprine 10 Mg Tab) 10 mg PO HS PRN PRN Reason: Muscle Spasm Dexamethasone Sodium Phosphate (Dexamethasone Sod Phosphate 10 Mg/Ml 1 Ml Vial) 6 mg IV DAILY [facility] Last Admin: 11/20/20 07:47 Dose: 6 mg Documented by: Enoxaparin Sodium (Enoxaparin 40 Mg/0.4 Ml Syringe) 40 mg SQ DAILY [facility] Last Admin: 11/20/20 07:47 Dose: 40 mg Documented by: Famotidine (Famotidine 20 Mg Tab) 20 mg PO BID [facility] Last Admin: 11/20/20 07:47 Dose: 20 mg Documented by: Fluticasone Propionate (Fluticasone 50mcg/[place] Nasal 16gm) 2 spray EA NOSTRIL DAILY [facility] Last Admin: 11/20/20 07:48 Dose: Not Given Documented by: Gabapentin (Gabapentin 100 Mg Cap) 100 mg PO BID PRN PRN Reason: Pain Sodium Chloride (Saline 0.9%) 1,000 mls @ 20 mls/hr IV .Q24H [facility] Last Admin: 11/20/20 07:49 Dose: Not Given Documented by: Loratadine (Loratadine 10 Mg Tab) 10 mg PO HS [facility] Last Admin: 11/19/20 21:34 Dose: 10 mg Documented by: Meloxicam (Meloxicam 7.5 Mg Tab) 7.5 mg PO DAILY PRN PRN Reason: Pain Multivitamins (Multivitamins, Thera 1 Each Tab) 1 each PO DAILY@1200 [facility] Last Admin: 11/20/20 07:47 Dose: 1 each Documented by: Naloxone HCl (Naloxone 0.4 Mg/Ml 1 Ml Vial) 0.2 mg IV Q2M PRN PRN Reason: Opioid Reversal Nystatin (Nystatin 100,000 Unit/Ml Susp 500,000 Unit/5 Ml Cup) 500,000 unit PO QID [facility] Last Admin: 11/20/20 13:51 Dose: 500,000 unit Documented by: Ondansetron HCl (Ondansetron 4 Mg/2 Ml Vial) 4 mg IVP Q8HR PRN PRN Reason: Nausea And Vomiting Zinc Sulfate (Zinc Sulfate 220 Mg Cap) 220 mg PO DAILY [facility] Last Admin: 11/20/20 07:47 Dose: 220 mg Documented by: Objective - Vital Signs Vital signs: Vital Signs Temp 97.8 F 11/20/20 09:19 Pulse 94 11/20/20 09:19 Resp 17 11/20/20 09:19 BP 131/77 11/20/20 09:19 Pulse Ox 92 L 11/20/20 09:19 Intake & Output 11/19/20 11/20/20 11/20/20 18:59 06:59 18:59 Output Total 301 Balance -301 Output: Urine 300 Stool 1 Other: Voiding Method Urinal # Voids 3 - Exam Gen: This is a 60-year-old male sitting up in the chair awake, alert and orien ashely 3, well-developed, well-nourished. Temp is 97.8F pulse is 94, respirations are 17, blood pressure is 131/77, oxygen is 92% and currently on high flow nasal cannula of 7 L and repeat evaluation on 5 L containing 95% oxygen saturation HEENT: Head is atraumatic, normocephalic. Pupils equal, round. Sclerae is anicteric. NECK: Supple. No JVD. No lymphadenopathy. No thyromegaly. LUNGS: Diminished breath sounds bilaterally with coarse rhonchi noted throughout. No intercostal retractions. HEART: S1, S2 are muffled ABDOMEN: Soft. Obese. Bowel sounds are present. No masses. No tenderness. EXTREMITIES: No pedal edema. No calf tenderness. NEUROLOGICAL: Patient is awake, alert and oriented x3. Cranial nerves 2 through 12 are grossly intact. No focal deficits noted - Labs CBC & Chem 7: 11/19/20 07:01 11/19/20 07:01 Labs: Abnormal Lab Results - Last 24 Hours (Table) 11/19/20 11/19/20 Range/Units 07:01 07:01 WBC 17.74 H (4.50-10.00) X 10*3/uL RBC 6.30 H (4.40-5.60) X 10*6/uL Hgb 17.2 H (13.0-17.0) g/dL Hct 53.2 H (39.6-50.0) % RDW 16.2 H (11.5-14.5) % Absolute Nucleated RBC 0.17 H (0.00-0.00) X 10*3/uL Metamyelocytes % 4 H (0-0) % Myelocytes % 1 H (0-0) % Neutrophils # (Manual) 15.26 H (2.00-8.90) X 10*3/uL Lymphocytes # (Manual) 0.53 L (0.90-5.00) X 10*3/uL Monocytes # (Manual) 1.06 H (0.20-1.00) X 10*3/uL Eosinophils # (Manual) 0 L (0.04-0.35) X 10*3/uL NRBC/100 WBC Diff 1.0 H (0.0-0.0) /100 WBCS BUN 29.0 H (9.0-27.0) mg/dL BUN/Creatinine Ratio 36.25 H (12.00-20.00) Ratio Glucose 127 H (70-110) mg/dL Lactate Dehydrogenase 463 H (120-246) U/L Assessment and Plan Assessment: Acute COVID-19 bilateral interstitial pneumonia with acute hypoxic respiratory failure Lymphopenia Hyponatremia Elevated random glucose elevated AST, ALT possibly secondary to COVID-19 Elevated inflammatory markers of COVID-19 History of left hip surgery with multiple complications History of DVT history of pulmonary embolus history of kidney stones History of adenoidectomy History back surgery history of degenerative joint disease Full code Recommendations and discussion: Recommend continue with current medications and current management. Continue to wean FiO2 as tolerated. Patient currently maintained on 5 L high flow maintaining 95% oxygen saturation. Encouraged incentive spirometer and continue to increase activity as tolerated. Inflammatory markers trending down with pulmonary and infectious disease following. Patient to continue on Lovenox along with vitamin and zinc supplements and dexamethasone. Patient did receive Tocilizumab this admission. Due to Multiple complex medical issues prognosis remains guarded. Patient will require oxygen via nasal cannula at 5 L secondary to COVID-19 pneumonia and will need close outpatient follow-up with pulmonary and wean slowly as tolerated. Case management provided with a prescription and working on providing oxygen to the patient prior to discharge. Continue with oxygen support and wean as tolerated. Possible discharge in 24 hours.
[2020-11-20] MEDS: LORATADINE 10 MG TAB PO SCH (21:39)
[2020-11-21] MEDS: SODIUM CHLORIDE 0.9% 1,000 ML IV SCH (07:34)
[2020-11-21] MEDS: DEXAMETHASONE SOD PHOSPHATE 10 MG/ML 1 ML VIAL IV SCH (07:37)
[2020-11-21] MEDS: ENOXAPARIN 40 MG/0.4 ML SYRINGE SQ SCH (07:37)
[2020-11-21] MEDS: ZINC SULFATE 220 MG CAP PO SCH (07:37)
[2020-11-21] MEDS: NYSTATIN 100,000 UNIT/ML SUSP 500,000 UNIT/5 ML CUP PO SCH ×2 (07:37→12:57)
[2020-11-21] MEDS: CHOLECALCIFEROL 25 MCG (1000 IU) TABLET PO SCH (07:37)
[2020-11-21] MEDS: MULTIVITAMINS, THERA 1 EACH TAB PO SCH (07:37)
[2020-11-21] MEDS: ASCORBIC ACID 500 MG TAB PO SCH (07:37)
[2020-11-21] MEDS: FAMOTIDINE 20 MG TAB PO SCH (07:37)
[2020-11-21] MEDS: FLUTICASONE 50MCG/SPRAY NASAL 16GM EA NOSTRIL SCH (07:38)
[2020-11-21] MEDS: ALBUTEROL HFA INHALER INHALATION SCH ×2 (07:49→11:20)
--- NOTE | 2020-11-21 12:01 | P.PN ---
Subjective Progress Note Date: 11/21/20 Principal diagnosis: COVID-19 pneumonia This 60-year-old white male patient of Dr. Moreno, with past medical history of DVT and bilateral PEs back in 2009, currently not on any chronic anticoagulation, hip replacement surgery, history of adenoidectomy and back surgery who presented to the emergency department on 11/06/2020 for evaluation of shortness of breath, fever, cough. Patient symptoms were suspicious for COVID-19 infection. His symptom onset was 10 days prior to common into the emergency department. His symptoms started with upper respiratory symptoms, productive cough of mild mucus, as well as dyspnea that has worsened over the last 1-2 days. Patient went to the urgent care on 11/06/2020 and was found to be hypoxic, and he was sent in to the emergency department for further treatment and evaluation for suspicion of COVID-19 pneumonia. Patient states his recently had COVID-19 infection, she had symptoms for 15 days. He denied any nausea, no vomiting, no abdominal pain no headaches. No lower extremity swelling, no chest discomfort. He has no chronic lung condition, he denies history of smoking. No hemoptysis. He reports subjective fever and chills at home. He is not vaccinated for COVID-19. At the urgent care clinic he was given a prednisone taper starting at 40 mg. His chest x-ray showed some coarsening of interstitial markings at the lower lung holt. EEG showed normal sinus rhythm, he is COVID-19 PCR was found to be positive, CBC showed white count of 4.4, hemoglobin of 15, lymphocytes, 0.3, his d-dimer was 1.05, sodium was 133, the rest of the electrolytes were unremarkable, BUN is 15 creatinine 0.65, his ferritin level was 1939, AST was 69, ALT was 55, LDH was 1297, CRP was 6.8, troponin was less than 0.012. Pro-calcitonin level was 0.14. Patient was outside the window for Remdesivir. He was also not a candidate for COVID antibiotic infusion. His been started on Decadron 6 mg daily, he was placed on prophylactic dose Lovenox, COVID-19 vitamin C cloudy vitamin C, vitamin D and zinc. He is currently up to 5 L of oxygen, and his pulse ox is 90-91%. CTA chest was completed showing no evidence of PE, and it showed extensive bilateral pulmonary infiltrate is consistent with pneumonia or RDS. His evaluation on 11/09/2020 patient is seen in the intensive care unit, he is awake and alert, oriented 3, still requiring high flow oxygen for Airvo, at 60 L and FiO2 of 90%, and his pulse ox was around 93-96%, he seems to be breathing comfortably, he states he feels better today, he did have an episode of shortn ess of breath last night. Today's follow-up chest x-ray has been reviewed showing bilateral lower lobe infiltrates, not significantly changed. He received a dose of Actos of his imatinib yesterday 800 mg 1, he remains on IV Decadron 6 mg daily, she is on prophylactic anticoagulation with Lovenox 40 mg daily and COVID-19 vitamins, including vitamin C, D, and zinc vitamins. No crackles at bilateral bases, no wheezing. Occasional cough, nonproductive, no complaints of chest discomfort. He states he slightly nauseous today, but he hasn't had anything to eat, he is requesting some dry saltine crackers. No emesis, no diarrhea, no abdominal discomfort. Today's labs have been reviewed. White blood cell count is 3.8, hemoglobin is 14.3, d-dimer is 0.84, sodium is 134, Celexa lites and renal profile were unremarkable, LDH is 1130, and CRP is 2.9, pro calcitonin level was low at 0.14. He is on 0.9 normal saline 75 ML per hour. In sinus mechanism, blood pressure is stable, currently 130/83. 8/2020, the patient is being seen in follow-up in the intensive care unit. The patient is essentially the same compared to yesterday. No worsening his chest x-ray findings. He remains on high flow oxygen at 60 L with an FiO2 of 90%. Pulse ox is ranging as low as 88% up to 94%. He gets short of breath with limited amount of activity. He had a bowel movement yesterday and took a lot of energy and he became quite short of breath while having a bowel movement. He also is having some dry cough. No significant sputum production. White cell count is at 4.7 with a hemoglobin of 15.1. He is currently wearing 100% nonrebreather facemask and combination to his high flow oxygen. His LDH level from yesterday was down to 1130 and a CRP isn't 2.9 with a d-dimer of 0.8. Chest x-ray shows no significant interval change in the patient has infiltrates in the lung bases bilaterally. No nausea. No vomiting. No diarrhea. IV fluids are running in the form of normal saline at the rate of 75 mL an hour. The patient is also on Lovenox 40 mg subcu daily. He is on vitamins including vitamin C and E and zinc. His chest x-ray is unchanged. On examination she is to have some coarse crackles in lung bases bilaterally. No altered mentation. Appetite is low. 11/11/2020, I'm seeing the patient for a follow-up. He is feeling better today and he is breathing is more comfortable. He remains on high flow oxygen at 6 L with an FiO2 of 90%. On today's evaluation, he is talking comfortably. He has not used the 100% nonrebreather facemask. His pulse ox is around 92%. Chest x-ray shows a stable left lower lobe consolidation and some limited infiltration bilaterally. D-dimer from yesterday was at 0.8. Rest of the labs are all stable with a white cell count of 5.5 and hemoglobin of 15.4. CRP from yesterday was at 2.9 with a LDH level of 1130. He remains on Decadron 6 mg IV every 24 hours. He remains on anticoagulation with Lovenox 40 mg subcu every 24 hours. Eating well. No altered mentation. 11/13/2020, I'm seeing this patient for a follow-up. The patient is currently on high flow oxygen at 6 L and FiO2 of 70%. He is also on and off using the 100% on a beta facemasks. No significant change compared to yesterday. He remains on Decadron 6 mg IV every 24 hours. Remains on Lovenox 4 mg subcu for DVT prophylaxis. No chest pain. No headaches. No altered mentation. His cough is essentially dry. His LDH level and the CRP level were essentially dropping and the patient's chest x-rays remained stable over the past 48 hours. He is tolerating his diet is using incentive spirometer. His doing positional therapy and he is unable to fully pronate himself. Nevertheless, his overall condition is stable. He remains on multivitamins regarding his COVID 19 related pneumonia. 11/14/2020, the patient continues to show signs of improvement. This morning he is on the oxygen flow of 50 L with an FiO2 of 50%. Doing well. Pulse ox is 93%. Afebrile. He remains on Decadron 6 mg IV every 24 hours. No new complaints. Is able to get out of the bed. Is able to sit up on a chair. Occasional dry cough. No significant sputum production. No hemoptysis. No pleurisy. Using incentive spirometer. White cell count is at 10.9 with hemoglobin of 16. BUN is at 26 with a creatinine of 0.8. LDH level is at 976 and the pro calcitonin level is at 0.05. The d-dimer is at 1.4. Remains on Lovenox 40 mg subcu every 24 hours. The patient is seen today 11/16/2020 in follow-up on the regular medical floor. He is currently sitting up in a chair at the bedside. Awake, alert in no acute distress. He remains on AirVo high flow oxygen at 40 L and 40% FiO2. Continues to improve daily. 6 continues to show stable bilateral infiltrates. Sputum culture reveals no growth 2. No new labs today. He remains on Decadron, Lovenox, vitamin supplements. The patient is seen today 11/17/2020 in follow-up on the regular medical floor. He is awake and alert in no acute distress. Maintaining O2 saturations in the 90s on AirVo high flow oxygen at 40 L and 40% FiO2. White count 14.2. Hemoglobin 16.3. Lymphocytes 0.89. Sodium 134. Potassium 4.4. Creatinine 0.70. LDH 690. He remains on Decadron, Lovenox, vitamin supplements. The patient is seen today 11/20/2020 in follow-up on the regular medical floor. He is currently sitting up in a chair at the bedside. Awake and alert in no acute distress. He is down to 7 L high flow nasal cannula currently. O2 saturation at 92%. He is afebrile. Hemodynamically stable. Sputum culture revealed no growth 2. No new Labs today. He remains on Decadron, Lovenox, vitamin supplements. The patient is seen today 11/21/2020 in follow-up on the regular medical floor. He is currently sitting up in a chair at the bedside. Awake and alert in no acute distress. Currently down to 4 L/m per nasal cannula to maintain O2 saturations in the 90s. He has been afebrile. Hemodynamically stable. Sputum culture revealed no growth 2. Continued on Decadron, Lovenox, vitamin supplements. Objective - Vital Signs Vital signs: Vital Signs Temp 97.7 F 11/21/20 10:33 Pulse 88 11/21/20 10:33 Resp 16 11/21/20 10:33 BP 133/73 11/21/20 10:33 Pulse Ox 95 11/21/20 10:33 Intake & Output 11/20/20 11/21/20 11/21/20 18:59 06:59 18:59 Intake Total 160 Output Total 1 Balance 160 -1 Intake: Intake, IV Titration 160 Amount Sodium Chloride 0.9% 1, 160 000 ml @ 20 mls/hr IV . Q24H [facility] Rx#:[id number] Output: Stool 1 Other: Voiding Method Urinal # Voids 4 # Bowel Movements 1 - Exam GENERAL EXAM: Alert, very pleasant, 60-year-old male patient, mild degree of respiratory distress, currently on 4 L nasal cannula. HEAD: Normocephalic/atraumatic. EYES: Normal reaction of pupils, equal size. Conjunctiva pink, sclera white. NOSE: Clear with pink turbinates. THROAT: No erythema or exudates. NECK: No masses, no JVD, no thyroid enlargement, no adenopathy. CHEST: No chest wall deformity. Symmetrical expansion. LUNGS: Equal air entry with bibasilar crackles, but no wheeze, rhonchi or dullness. CVS: Regular rate and rhythm, normal S1 and S2, no gallops, no murmurs, no rubs ABDOMEN: Soft, nontender. No hepatosplenomegaly, normal bowel sounds, no guarding or rigidity. EXTREMITIES: No clubbing, no edema, no cyanosis, 2+ pulses and upper and lower extremities. MUSCULOSKELETAL: Muscle strength and tone normal. SPINE: No scoliosis or deformity SKIN: No rashes CENTRAL NERVOUS SYSTEM: No focal deficits, tone is normal in all 4 extremities. PSYCHIATRIC: Alert and oriented -3. Appropriate affect. Intact judgment and insight. - Labs CBC & Chem 7: 11/19/20 07:01 11/19/20 07:01 Assessment and Plan Assessment: 1 Acute hypoxic respiratory failure related to acute COVID-19 pneumonia, outside the window for Remdesivir. Patient had worsening of his dyspnea and hypoxia, he is status post post-of tocilizumab infusion on 11/08/2020 clinically, the patient is gradually improving. He is down to 4 L nasal cannula 2 Myalgias, fever, cough, dyspnea related to the above 3 Previous history of DVT and bilateral PEs in 2009, currently not on chronic anticoagulation 4 History of kidney stones 5 Osteoarthritis . History of hip surgery 6 Nonsmoker Plan: The patient was seen and evaluated by Dr. Bar Currently on 4 L oxygen Cleared for discharge from the pulmonary standpoint. Decadron and Lovenox discontinued. Follow-up in the office in 3-4 weeks I, the cosigning physician, performed a history & physical examination of the patient. Lungs sounds crackles in the bilateral posterior bases. Maintaining good O2 saturations in the 90s on 4 L oxygen. I discussed the assessment and plan of care with my nurse practitioner, Kavita Elaine. I attest to the above note as dictated by her.
--- NOTE | 2020-11-21 13:41 | PN ---
PROGRESS NOTE DATE OF SERVICE: 11/21/2020 REASON FOR FOLLOWUP: Covid-19 pneumonia, leukocytosis, likely oral thrush. INTERVAL HISTORY: The patient is afebrile. The patient is feeling better, breathing comfortably. He is current down to 4 L nasal cannula. Denies having any chest pain. Minimal cough. No vomiting. No abdominal pain or diarrhea. PHYSICAL EXAMINATION: Blood pressure 133/73 with a pulse of 80, temperature 97.7. He is 95% on 4 L nasal cannula. GENERAL DESCRIPTION: General description is a middle-aged male up in the chair in no distress. RESPIRATORY SYSTEM: Unlabored breathing. Decreased intensity of breath sounds. No wheeze. HEART: S1, S2. Regular rate and rhythm. ABDOMEN: Soft. No tenderness. LABS: No new labs have been obtained today. DIAGNOSTIC IMPRESSION AND PLAN: 1. Patient with acute COVID-19 pneumonia in this patient who received Actemra. Did not qualify for remdesivir. Did have overall improvement on supportive treatment with dexamethasone, Lovenox, zinc, ascorbic acid. 2. Patient with leukocytosis and oral thrush. Nystatin swish and swallow for about a week and close outpatient followup. MMODL / IJN: [id number] /
[2020-11-21 16:01] VITALS: BP 133/74; PULSE 87; RESP 18; TEMP 97.9
== END 2020-11-21 15:34 | disposition home or self-care (01) | DRG 177 ==
LOC: EC 16:16 → 1SOBS 18:05 → 4SSUR 11-07 02:18 → 2SICU 11-08 13:00 → 4SSUR 11-15 16:39
PROVIDERS: ADMIT Hospitalist; ATTEND Hospitalist
PROC: XW033H5 Introduction of Tocilizumab into Peripheral Vein, Percutaneous Approach, New Technology Group 5 (ICD-10-PCS; principal; 2020-11-08)
PROC: 5A0955A Assistance with Respiratory Ventilation, Greater than 96 Consecutive Hours, High Flow/Velocity Cannula (ICD-10-PCS; 2020-11-09)
DX: U07.1 COVID-19 (principal); J12.82 Pneumonia due to coronavirus disease 2019; J96.01 Acute respiratory failure with hypoxia; E87.1 Hypo-osmolality and hyponatremia; B37.0 Candidal stomatitis; G89.29 Other chronic pain; D72.810 Lymphocytopenia; R74.01 Elevation of levels of liver transaminase levels; R74.02 Elevation of levels of lactic acid dehydrogenase [LDH]; M19.90 Unspecified osteoarthritis, unspecified site; E66.9 Obesity, unspecified; Z68.29 Body mass index [BMI] 29.0-29.9, adult; Z79.1 Long term (current) use of non-steroidal anti-inflammatories (NSAID); Z79.899 Other long term (current) drug therapy; Z86.718 Personal history of other venous thrombosis and embolism; Z86.711 Personal history of pulmonary embolism; Z87.442 Personal history of urinary calculi; Z90.89 Acquired absence of other organs; Z96.649 Presence of unspecified artificial hip joint; Z98.890 Other specified postprocedural states; Z71.3 Dietary counseling and surveillance
CPT/HCPCS: 36415; 71045; 71275; 80048; 80053; 82553; 82728; 83615; 83735; 84145; 84484; 85025; 85027; 85379; 85610; 85652; 85730; 86140; 87070; 87205; 87635; 93005; 94640; 94760; 96361; 96374; 99285